=== PATIENT | female | born 1940 | race Caucasian/White ===

== ENCOUNTER 2016-12-30 08:47 | Inpatient (IN) | payer MEDICARE, BC ==
[~2016-12-30] VITALS: Ht 152.4 cm; Wt 70.2 kg
[~2016-12-30 08:47] MED LIST: BACL20TA PO; BUPR100T14 PO; CALC1TAB98 PO; CELE200C PO; DESL5TAB20 PO; DOCU-159 PO; DULO60CA59 PO; FENT-65 TD; FLOV44 INHALATION; FURO40TA4 PO; GABA-528 PO; HYDR2TAB3 PO; L-THYROXINE PO; LIDOCAINE PATCH; MECL12.5 PO; METAM PO; METHYPHENIDATE PO; METO-448 PO; MONT10TA24 PO; PANT40TA4 PO; POTA99TA5 PO; RIVA20TA PO; SENN8.6C3 PO; SIMV5TAB50 PO; SPIR100T31 PO; TIOT18CA INHALATION
[2016-12-30 09:45] VITALS: BP 115/54; PULSE 79; RESP 16
--- NOTE | 2016-12-30 12:23 | CONS ---
Date/Time of Note Date/Time of Note DATE: 12/30/16 TIME: 12:19 Assessment/Plan Assessment/Plan Additional Assessment/Plan Assessment recommendations; 1. Patient admitted electively for left elbow surgery due to hardware protruding out. 2. COPD. Patient is cleared from pulmonary standpoint for general anesthesia. She apparently has had workup done on outpatient basis which is currently not available for review. A chest x-ray has not been recently done I will recommend obtaining one. Consultation Date/Type/Reason Admit Date/Time Dec 30, 2016 at 10:00 Date of Consultation: Dec 30, 2016 Type of Consultation: Pulmonary Reason for Consultation Pulmonary consultations requested for preop clearance for left elbow surgery. History presenting; patient is a very pleasant 76-year-old white lady who was admitted today for surgery involving left elbow because of hardware has been protruding out of the elbow for the last week or so. Patient does complain of chronic shortness of breath upon moderate exertion. Complains of mild chronic cough. Denies any sputum production chest pain fever chills. Patient is physically very active. Past medical history; next 1. History of COPD. 2. History of varicose vein surgery in her mid 30s and according to what the patient describing looks like patient has had a Clara filter placed. Not sure about any history of DVT or PE. 3. History of appendectomy. 4. Most of any hypertension diabetes or coronary artery disease. Medications; reviewed. Allergies; penicillin and sulfa drugs. As well as erythromycin and morphine. Social history; patient has a [id number] smoking history. She quit several years ago. Most of alcohol or drug abuse. Occupational history; patient was in real estate business. Family history; she is a . She has 3 children. Review systems; denies any headache, visual changes. Denies any sinus symptoms , postnasal drip. Any hearing loss. Any seizures. Any visual changes. Denies any chest pain, angina, wheezing. Complains of mild chronic cough. Denies any hemoptysis or sputum production. Denies any abdominal pain, nausea vomiting. Any melena, hematochezia. Any edema or orthopnea. Has not lost any weight recently. General exam; elderly lady awake alert currently in no distress. Exam/Review of Systems Exam HEENT exam; supple neck, no JVD. No lymphadenopathy. Midline trachea. No thyromegaly. Patient is edentulous and wears dentures. Pupils are midsize and reactive to light. Extraocular movements are intact. No neck masses. Chest examined; diminished but clear vessel. No added sound. S1-S2 audible, no murmurs. Regular rhythm. Abdomen examination; soft, nontender. No organomegaly. There is a well-healed left mid abdominal scar present. Umbilicus is inverted. Extremity exam; no peripheral edema. Pulses 1+ bilaterally. No clubbing. There is hardware protruding out of the left elbow. HOSPITALIST PHYSICIAN examination; no focal deficit. Medications Medications Current Medications Baclofen (Lioresal) 20 mg BID PO ; Start 12/30/16 at 21:00; Status UNV Bupropion HCl (Wellbutrin) 300 mg DAILY PO ; Start 12/31/16 at 09:00; Status UNV Celecoxib (Celebrex) 200 mg DAILY PO ; Start 12/31/16 at 09:00; Status UNV Docusate Sodium (Colace) 100 mg DAILY PO ; Start 12/31/16 at 09:00; Status UNV Duloxetine HCl (Cymbalta) 60 mg DAILY PO ; Start 12/31/16 at 09:00; Status UNV Furosemide (Lasix) 40 mg DAILY PO ; Start 12/31/16 at 09:00; Status UNV Gabapentin (Neurontin) 800 mg TID PO ; Start 12/30/16 at 13:00; Status UNV Hydromorphone HCl (Dilaudid) 2 mg Q4H PRN PO PAIN; Start 12/30/16 at 11:30; Status UNV Meclizine HCl (Antivert) 10 mg TID PRN PO DIZZINESS; Start 12/30/16 at 11:30; Status UNV Metoprolol Tartrate (Lopressor) 12.5 mg DAILY PO ; Start 12/31/16 at 09:00; Status UNV Montelukast Sodium (Singulair) 10 mg QHS PO ; Start 12/30/16 at 21:00; Status UNV Pantoprazole (Protonix Tab) 40 mg DAILY PO ; Start 12/31/16 at 09:00; Status UNV Psyllium Hydrophilic Mucilloid (Metamucil) 1 pkt BID PO ; Start 12/30/16 at 21:00 ; Status UNV Senna (Senokot) 1 tab DAILY PO ; Start 12/31/16 at 09:00; Status UNV Spironolactone (Aldactone) 25 mg DAILY PO ; Start 12/31/16 at 09:00; Status UNV Tiotropium [place] (Spiriva) 1 inh DAILY INH ; Start 12/31/16 at 09:00; Status UNV Miscellaneous Information 5 mg DAILY PO ; Start 12/31/16 at 09:00; Status UNV Miscellaneous Information 1 puff BID INHALATION ; Start 12/30/16 at 21:00; Status UNV Miscellaneous Information 10 mg QHS PO ; Start 12/30/16 at 21:00; Status UNV Methylphenidate HCl (Methylin) 20 mg QID PO ; Start 12/30/16 at 13:00; Status UNV Fentanyl (Duragesic 100 Mcg/Hr Patch) 1 patch Q72H TRANSDERM ; Start 12/30/16 at 11:30; Status UNV Levothyroxine Sodium (Synthroid) 100 mcg DAILY@06 PO ; Start 12/31/16 at 06:00; Status UNV Pantoprazole (Protonix Tab) 40 mg DAILY@06 PO ; Start 12/31/16 at 06:00; Status UNV Enoxaparin Sodium (Lovenox) 40 mg DAILY SC ; Start 12/31/16 at 09:00; Status UNV ROMAN COLLINS Dec 30, 2016 12:23
[2016-12-30 12:55] LABS: ADD SCAN DIFF NO
[2016-12-30 12:57] LABS: BASOPHIL # 0.1 10^3/ul (0.0-0.1); BASOPHILS % 0.6 % (0.0-2.0); EOSINOPHILS # 0.4 10^3/ul (0.0-0.5); EOSINOPHILS % 4.4 % (0.0-7.0); HEMATOCRIT 31.3 % (37.0-47.0); HEMOGLOBIN 9.6 g/dl (12.0-16.0); LYMPHOCYTES # 0.7 10^3/ul (0.8-2.9); LYMPHOCYTES % 7.9 % (15.0-51.0); MEAN CORPUSCULAR HEMOGLOBIN 27.8 pg (29.0-33.0); MEAN CORPUSCULAR HGB CONC 30.7 g/dl (32.0-37.0); MEAN CORPUSCULAR VOLUME 90.7 fl (82.0-101.0); MONOCYTE # 1.2 10^3/ul (0.3-0.9); MONOCYTES % 14.9 % (0.0-11.0); NEUTROPHIL # 5.9 10^3/ul (1.6-7.5); NEUTROPHILS % 71.7 % (39.0-77.0); PLATELET COUNT 278 10^3/UL (140-415); RED BLOOD COUNT 3.45 10^6/ul (4.20-5.40); RED CELL DISTRIBUTION WIDTH 17.2 % (11.5-14.5); WHITE BLOOD COUNT 8.2 10^3/ul (4.8-10.8)
[2016-12-30] MEDS ORDERED: HYDROmorphONE 2 MG TAB PO PRN (13:00)
[2016-12-30] MEDS ORDERED: MECLIZINE 12.5 MG TAB PO PRN (13:00)
[2016-12-30 13:20] LABS: ALBUMIN 3.6 g/dl (3.3-4.9); ALBUMIN/GLOBULIN RATIO 1.38; BILIRUBIN,INDIRECT 0.1 mg/dl (0-1.1); BILIRUBIN,TOTAL 0.1 mg/dl (0.2-1.3); CALCIUM 8.5 mg/dl (8.4-10.2); CREATININE 1.08 mg/dl (0.44-1.00); POTASSIUM 4.2 mmol/L (3.5-5.1); TOTAL PROTEIN 6.2 g/dl (6.1-8.1)
--- NOTE | 2016-12-30 13:23 | HP ---
DATE OF ADMISSION: 12/30/2016 CHIEF COMPLAINT: Left elbow hardware exposure, cellulitis. HISTORY OF PRESENT ILLNESS: This is a 76-year-old female well known to me with a past medical histo ry of chronic diastolic heart failure, history of hypertension, history of coronary artery disease, history of dyslipidemia, history of COPD, on oxygen. History of hypothyroidism, history of deep tereza ous thrombosis and pulmonary embolism status post IVC filter, history of recurrent lower extremity c ellulitis, history of cognitive decline, history of chronic pain syndrome who presents to [facility] for evaluation of left elbow hardware exposure. The patient's history begins abo ut 2 to 3 months ago when she suffered a mechanical fall, suffering a left humeral fracture. The pa chang underwent left humeral arthroplasty at an outside hospital. Following the surgery, the patien t had a prolonged rehabilitation stay and was eventually transferred to assisted living. While at er assisted living. The patient started developing pain of her left elbow, eventually with exposure of left elbow hardware. She was initially taken to an outside hospital and was given IV antibiotic s for her left elbow cellulitis as well as lower extremity cellulitis and transferred to a skilled n ursing facility for continued care. While in a skilled nurse facility, the patient was unable to se e her original orthopedist, as he has moved location. The patient was then evaluated by Dr. Parisa mendenhall, who recommended the patient to be admitted to the hospital to undergo surgical correction of her exposed left elbow hardware. The patient was subsequently admitted to [facility] for as stated evaluation. Upon my evaluation of the patient at this time, she is currently clinically stable, is complaining a bout general weakness, chronic pain which is her baseline. Denies any fevers, chills, nausea, vomit ing. Denies any shortness of breath. Please note, the patient has been on IV antibiotics of vancom ycin and gentamicin for her lower extremity cellulitis and left elbow cellulitis. PAST MEDICAL HISTORY: As stated above, history of diastolic heart failure, history of COPD, history of dyslipidemia, history of coronary artery disease, history of hypothyroidism, history of chronic pain syndrome, history of DVT, PE, history of recurrent cellulitis. PAST SURGICAL HISTORY: Multiple status post left arm arthroplasties, status post multiple back surg eries, status post bladder surgery. FAMILY HISTORY: Noncontributory. SOCIAL HISTORY: No active smoking, drinking, or drug use. MEDICATIONS: The patient's medications have been reviewed and reconciled. REVIEW OF SYSTEMS: A 14-point review of systems was conducted. Pertinent positives as stated in HP I, otherwise negative. PHYSICAL EXAMINATION: VITAL SIGNS: Blood pressure is currently 125/76, respirations 16, pulse 72, temperature 98.6. HEENT: Head is normocephalic. Pupils are reactive to light. NECK: Supple. HEART: Regular rate, positive murmur. LUNGS: Show diminished breath sounds at the base, otherwise clear. ABDOMEN: Soft, nontender to palpation. No rebound or guarding. EXTREMITIES: Negative for clubbing, cyanosis. Trace edema. DERMATOLOGIC: No rashes. MUSCULOSKELETAL: No joint effusions. NEUROLOGIC: Limited exam, but no focal deficits. LABORATORY DATA: Currently pending. ASSESSMENT AND PLAN: This is a 76-year-old female who presents with: 1. Left humeral elbow hardware exposure. The patient will be evaluated by orthopedist, rea Hopper surgical correction. Will continue pain control, monitor closely. 2. Cellulitis of bilateral lower extremities and left elbow. The patient remains on IV antibiotics of vancomycin, gentamicin. We will place an ID consult for evaluation. Dr. Peters to monitor. 3. History of coronary artery disease. Continue medical management. 4. History of diastolic heart failure. The patient appears euvolemic. Continue medical management . Continue diuretic therapy. Follow up with cardiology. 5. History of polyneuropathy. Continue Neurontin. 6. Chronic pain syndrome. Continue current pain regimen. Continue fentanyl patch. Continue Dilau did. 7. Depression. Continue Wellbutrin. 8. Cognitive decline. Continue to monitor. 9. Chronic obstructive pulmonary disease. Continue medical management. Continue Spiriva. Continu e supplemental oxygen. 10. History of allergies, allergic rhinitis. Continue Fluticasone. Continue Claritin. 11. Dyslipidemia. Continue statin therapy. 12. History of deep venous thrombosis and pulmonary embolism. The patient is currently on Xarelto. We will hold in the setting of pending surgery, place the patient on Lovenox. Will check INR. 13. History of hypothyroidism. We will check a TSH, free T4 level. Will continue Synthroid. 14. Gastrointestinal and deep venous thrombosis prophylaxis. The patient will continue PPI and Kalee enox. Please note I spent up to 45 minutes [id number] time with the patient discussing code status. The patient is FULL CODE. Dictated By: VALE DUKE/SOFIE Conf#: [id number] DID#: [id number]
[2016-12-30] MEDS ORDERED: ALBUTEROL/IPRATROPIUM (NEB) 3 ML AMP HHN PRN (14:00)
[2016-12-30 14:47] LABS: INR 1.05; PROTIME 13.7 Sec (12.2-14.2); PT RATIO 1.1
[2016-12-30 15:03] LABS: ADD UMIC NO; URINE BILIRUBIN (Dip) NEGATIVE (NEGATIVE); URINE BLOOD (Dip) NEGATIVE (NEGATIVE); URINE COLOR LT. YELLOW (YELLOW); URINE GLUCOSE (Dip) NEGATIVE (NEGATIVE); URINE KETONES (Dip) NEGATIVE (NEGATIVE); URINE LEUKOCYTE ESTERASE (Dip) NEGATIVE (NEGATIVE); URINE NITRITE (Dip) NEGATIVE (NEGATIVE); URINE TOTAL PROTEIN (Dip) NEGATIVE (NEGATIVE); URINE UROBILINOGEN (Dip) 0.2 E.U./dL (0.1-1.0)
[2016-12-30] MEDS: MOMETASONE 0.24 GM INHALER INH SCH (16:26)
[2016-12-30] MEDS: BUPROPION (XL) 150 MG TAB PO SCH (16:28)
[2016-12-30] MEDS: GABAPENTIN 400 MG CAP PO SCH ×2 (16:29→21:50)
--- NOTE | 2016-12-30 16:36 | CONS ---
DATE OF ADMISSION: 12/30/2016 DATE OF CONSULTATION: 12/30/2016 INFECTIOUS DISEASE CONSULTATION REASON FOR CONSULTATION: Antibiotic management. HISTORY OF PRESENT ILLNESS: Jorge Alberto Downs is a 76-year-old female who comes in with left elb ow hardware exposure and cellulitis. Her past problems include: 1. Chronic diastolic heart failure. 2. Hypertension. 3. Coronary artery disease. 4. Dyslipidemia. 5. COPD, on oxygen. 6. Hypothyroidism. 7. History of deep vein thrombophlebitis and pulmonary emboli, status post inferior vena cava filte r. 8. History of recurrent lower extremity cellulitis. 9. History of cognitive decline. 10. Chronic pain syndrome. Acutely she presents to [facility] for evaluation of left elbow hardware exposure. About 2 to 3 months ago she suffered a mechanical fall and left humeral fracture. She underwent lef t humeral arthroplasty at an outside hospital. Following the surgery, she had a prolonged rehabilit ation and was transferred to assisted living. There she developed pain in her left elbow with expos ure left elbow hardware. She was taken initially to an outside hospital, given IV antibiotics for l eft elbow cellulitis as well as lower extremity cellulitis. She was then transferred [facility]. The patient could not return to see her original orthopedist as he had move d location. She was then evaluated by Dr. Parisa Bagley and [facility] her exposed left elbow hardware. She was admitted to [facility] for this evaluation, the patient complains of generalized weakness and pain. She mesha es nausea, vomiting, fever, chills, or shortness of breath. She was started on vancomycin and genta micin for lower extremity cellulitis and left elbow cellulitis. PAST MEDICAL HISTORY: As outlined. PAST SURGICAL HISTORY: Status post left arm arthroplasties, status post multiple back surgeries, st atus post bladder surgery. FAMILY HISTORY: Noncontributory. SOCIAL HISTORY: She does not smoke, drink or abuse drugs. ALLERGIES: NONE TO PENICILLIN, SULFA, OR FOODS. MEDICATIONS: Per chart. REVIEW OF SYSTEMS: As per HPI. PHYSICAL EXAMINATION: GENERAL: The patient is a well-developed, well-nourished female who is alert, responsive, in no acu te distress. VITAL SIGNS: Stable. She is afebrile. SKIN: Without generalized rash. HEENT: Within normal limits. NECK: Supple. LYMPH NODES: None palpable. CHEST: Decreased breath sounds at the bases. HEART: Without murmur or gallop. ABDOMEN: Soft, nontender, without organosplenomegaly or masses. EXTREMITIES: Without cyanosis or clubbing. She has cellulitis involving her elbow with exposed gemma dware, and she has cellulitis of lower extremities. LABORATORY DATA: On admission, her white count was 8.2, H and H of 9.6 and 31.3, platelet count 278 ,000. BUN and creatinine are 18 and 1.08. Urine is negative for leukocyte esterase and for nitrite s. The patient was also seen in consultation by pulmonary and was cleared for a pulmonary standpoint fo r general anesthesia. We will continue her on current therapy. I will check with Dr. Parisa Bagley as to whether his plan is to remove the hardware if at all possible and to leave the wound open which w ould seem to be the probable course of events. I will dictate my findings to Dr. Pearce, Dr. Haskins , and Dr. Parisa Bagley. Dictated By: ADIEL MAJOR MD, JD/SOFIE Conf#: [id number] DID#: [id number]
--- NOTE | 2016-12-30 16:40 | CONS ---
DATE OF ADMISSION: 12/30/2016 DATE OF CONSULTATION: 12/30/2016 TYPE OF CONSULTATION: Cardiology. REFERRING PHYSICIAN: Dr. Pearce. REASON FOR CONSULTATION: Cardiovascular preop evaluation. SURGICAL PROBLEM: Left elbow hardware exposure. HISTORY OF PRESENT ILLNESS: Thank you for this referral. History obtained from the patient who is a fair historian at best, extensive review of the chart, review of the old chart. This is a 76-year -old pleasant female with history of multiple complicated medical history including chronic diastoli c heart failure, depression, COPD, history of PE, DVT. She was receiving Lopressor and apparently long s had IVC filter "getting loose" and going to her "heart". Has has had what appeared to be thoracot jayesh done. She was admitted because of exposure of the metal in her elbow. The patient had an elbow surgery about a year ago in February of last year had noted that the hardware is now exposed through the skin and has been admitted for further workup and needs urgent surgery. We are kindly asked to optimize prior to surgery. The patient denies any chest pain or pressure to me at this point. Jovanni es any PND, orthopnea to me. She says she is normally is able to walk about 2 to 4 blocks with her dogs without stopping. PAST MEDICAL HISTORY: History of diabetes, COPD, dyslipidemia, questionable history of coronary art ara disease. She denies it to me and said that the sternotomy scar that she had actually from the s urgery that she had to take the IVC filter out. History of hypothyroidism, chronic pain syndrome, h istory of deep venous and PE, cellulitis. SURGICAL HISTORY: Status post left arthroplasty, status post multiple back surgeries, knee surgery, bladder surgery, IVC filter placement, IVC filter removal apparently from the chest or lung. Acco rding to the patient none of the surgery had any cardiac complication or anesthesia complication. FAMILY HISTORY: No reported coronary artery disease. SOCIAL HISTORY: The patient is still smoking. Does not use any alcohol or drugs. FAMILY HISTORY: No reported early coronary artery disease. ALLERGIES: 1. PENICILLIN. 2. SULFA. 3. ERYTHROMYCIN. 4. MORPHINE. MEDICATIONS: As per medical records, personally reviewed. REVIEW OF SYSTEMS: As above mentioned. PHYSICAL EXAMINATION: VITAL SIGNS: Temperature 97.7, heart rate of 79, blood pressure 115/54, respiration rate of 16, sat urating 98%. HEENT: Normocephalic, atraumatic. No acute distress. Pupils are equal. CARDIOVASCULAR: Regular rate and rhythm, systolic ejection murmur. PULMONARY: With no wheezes, minimal rhonchi. GASTROINTESTINAL: Soft, nontender. EXTREMITIES: With no significant lower extremity edema. Left elbow metal appears to be exposed carlos miguel. LABORATORY: WBC of 8.2, hemoglobin 9.6, platelets 278. Sodium 143, potassium 4.2, BUN of 18, creat inine 1.08, glucose of 59. ASSESSMENT AND PLAN: 1. Cardiovascular preop evaluation. 2. Left humeral elbow hardware exposure. 3. Chronic obstructive pulmonary disease. 4. History of diastolic heart failure. 5. History of chronic back pain and multiple surgeries. 6. Hypertension. 7. Dyslipidemia. 8. History of deep venous thrombosis and pulmonary embolism, previously on Xarelto. 9. History of thyroid disorder, on Synthroid. RECOMMENDATIONS: I will order a baseline EKG, chest x-ray and echocardiogram to evaluate further. Patient clinically appears to be optimized at this point and does not complain of any chest pain or angina. No further cardiac workup would be indicated. However, she still would need a baseline EKG , chest x-ray and echocardiogram done to be able to further discuss prior to the surgery. The patie nt also has been evaluated by pulmonary. Please refer to their recommendation as well. We will con tinue to follow along with you. Dictated By: FARHAN SHULTZ/SOFIE Conf#: [id number] DID#: [id number] CC: VALE PEARCE DO;*EndCC*
[2016-12-30 19:39] VITALS: BP 107/58; RESP 18
[2016-12-30] MEDS ORDERED: PSYLLIUM 28% PACKET PO SCH (21:00)
[2016-12-30] MEDS: MONTELUKAST 10 MG TAB PO SCH (21:50)
[2016-12-30] MEDS: PSYLLIUM (SUGAR FREE) PACKET PO SCH (21:50)
[2016-12-30] MEDS: ATORVASTATIN 10 MG TAB PO SCH (21:50)
[2016-12-30] MEDS: BACLOFEN 10 MG TAB PO SCH (21:50)
[2016-12-30] MEDS: METHYLPHENIDATE 20 MG TAB PO SCH (21:52)
[2016-12-31] VITALS (19 sets, daily range): BP systolic 91–140; BP diastolic 47–80; PULSE 69–90; RESP 16–38
[2016-12-31 05:35] LABS: ADD SCAN DIFF NO
[2016-12-31 05:45] LABS: BASOPHILS % 0.8 % (0.0-2.0); EOSINOPHILS # 0.3 10^3/ul (0.0-0.5); EOSINOPHILS % 5.7 % (0.0-7.0); HEMATOCRIT 29.7 % (37.0-47.0); LYMPHOCYTES # 0.6 10^3/ul (0.8-2.9); LYMPHOCYTES % 11.7 % (15.0-51.0); MEAN CORPUSCULAR HEMOGLOBIN 27.8 pg (29.0-33.0); MEAN CORPUSCULAR HGB CONC 30.3 g/dl (32.0-37.0); MEAN CORPUSCULAR VOLUME 91.7 fl (82.0-101.0); MEAN PLATELET VOLUME 9.4 fl (7.4-10.4); MONOCYTE # 0.8 10^3/ul (0.3-0.9); MONOCYTES % 15.4 % (0.0-11.0); NEUTROPHIL # 3.4 10^3/ul (1.6-7.5); NEUTROPHILS % 66.2 % (39.0-77.0); PLATELET COUNT 258 10^3/UL (140-415); RED BLOOD COUNT 3.24 10^6/ul (4.20-5.40); RED CELL DISTRIBUTION WIDTH 17.4 % (11.5-14.5); WHITE BLOOD COUNT 5.1 10^3/ul (4.8-10.8)
--- NOTE | 2016-12-31 05:54 | RADRPT ---
PROCEDURE: XR Chest. CLINICAL INDICATION: Preop TECHNIQUE: An AP view of the chest was obtained. COMPARISON: No prior exam is available for comparison. FINDINGS: There is a right upper extremity PICC line with tip near the cavoatrial junction. There is prominence of the interstitial markings. No pleural effusion or pneumothorax is seen. Th e cardiomediastinal silhouette is within normal limits for size. There are post cardiac surgery ch anges with sternotomy wires. The osseous structures demonstrate postsurgical changes from thoracolum bar fusion, partially imaged. IMPRESSION: 1. Mild prominence of the interstitial markings, may reflect mild underlying interstitial edema or chronic lung changes. 2. Low lung volumes. 3. Right upper extremity PICC line with tip near the cavoatrial junction. 4. Postsurgical changes from thoracolumbar fusion, partially imaged. RPTAT: HH .Annabella Redman MD, MD Date Time Electronically viewed and signed by .Annabella Redman MD, MD on 12/31/2016 05:54 .G/
[2016-12-31 06:03] LABS: CALCIUM 8.4 mg/dl (8.4-10.2); CREATININE 1.01 mg/dl (0.44-1.00); MAGNESIUM 2.3 mg/dl (1.7-2.5); PHOSPHORUS 4.5 mg/dl (2.5-4.9); POTASSIUM 3.8 mmol/L (3.5-5.1)
[2016-12-31] MEDS: LEVOTHYROXINE 100 MCG TAB PO SCH (06:27)
[2016-12-31] MEDS: PANTOPRAZOLE (EC) 40 MG TAB PO SCH (06:27)
[2016-12-31] MEDS: LORATADINE 10 MG TAB PO SCH (09:00)
[2016-12-31] MEDS: MOMETASONE 0.24 GM INHALER INH SCH (09:00)
[2016-12-31] MEDS: DOCUSATE SODIUM 100 MG CAP PO SCH (09:00)
[2016-12-31] MEDS ORDERED: PANTOPRAZOLE (EC) 40 MG TAB PO SCH (09:00)
[2016-12-31] MEDS: FUROSEMIDE 40 MG TAB PO SCH (09:00)
[2016-12-31] MEDS: GABAPENTIN 400 MG CAP PO SCH ×3 (09:00→20:18)
[2016-12-31] MEDS: BACLOFEN 10 MG TAB PO SCH ×2 (09:00→20:17)
[2016-12-31] MEDS: ENOXAPARIN 40 MG/0.4 ML SYG SC SCH (09:00)
[2016-12-31] MEDS: TIOTROPIUM 18 MCG CAPSULE INHA DEV INH SCH (09:00)
[2016-12-31] MEDS: SPIRONOLACTONE 25 MG TAB PO SCH (09:00)
[2016-12-31] MEDS: METOPROLOL 25 MG TAB PO SCH (09:00)
[2016-12-31] MEDS: BUPROPION (XL) 150 MG TAB PO SCH (09:00)
[2016-12-31] MEDS: METHYLPHENIDATE 20 MG TAB PO SCH ×2 (09:00→20:26)
[2016-12-31] MEDS: SENNA TAB PO SCH (09:00)
[2016-12-31] MEDS: DULOXETINE 30 MG CAP DR PO SCH (09:00)
[2016-12-31] MEDS: CELECOXIB 200 MG CAP PO SCH (09:00)
[2016-12-31] MEDS: PSYLLIUM (SUGAR FREE) PACKET PO SCH ×2 (09:00→20:18)
--- NOTE | 2016-12-31 09:24 | PN ---
DATE: 12/31/2016 SUBJECTIVE: The patient is stable, no acute events overnight. No fevers, chills, nausea or vomitin g. No shortness of breath. OBJECTIVE: VITAL SIGNS: Blood pressure 107/58, respiration 18, pulse 80, temperature 98.2. HEENT: Head is normocephalic. NECK: Supple. HEART: Regular rate. LUNGS: Show diminished breath sounds at the base. ABDOMEN: Soft. Nontender to palpation. No rebound or guarding. EXTREMITIES: Negative for clubbing, cyanosis, no edema. DERMATOLOGIC: No rashes. MUSCULOSKELETAL: No joint effusions. NEUROLOGIC: No change in exam. MEDICATIONS: The patient's medications have been reviewed. LABORATORY DATA: Shows sodium 142, potassium 2.9, chloride 104, BUN 17, creatinine 1.01. White cou nt 5.1, hemoglobin 9.0, hematocrit 29.7, platelet count 258. IMAGING: Patient's chest x-ray shows interstitial markings may reflect chronic lung disease or inte rstitial edema. A 2D echo is currently pending. ASSESSMENT AND PLAN: 1. Left humeral elbow hardware exposure. The patient has been evaluated by orthopedist, sue Hopper ending surgical correction later today. 2. Cellulitis bilateral lower extremity and left elbow. The patient remains on antibiotics, vancom ycin and gentamicin. ID consult was placed. Will follow up with their recommendations. 3. History of coronary artery disease. Continue medical management. 4. History of diastolic heart failure. The patient appears euvolemic. Continue current treatment plan. Continue diuretic therapy. 5. History of polyneuropathy. Continue Neurontin. 6. Chronic pain syndrome. Continue current pain regimen with fentanyl patch and Dilaudid. 7. Depression. Continue Wellbutrin. 8. Cognitive decline. Continue to monitor. 9. History of chronic obstructive pulmonary disease. Continue current medical management. Continu e supplemental oxygen, Spiriva nebulizers. 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 10. History of allergies, allergic rhinitis. Continue fluticasone, continue Claritin. 11. Edema. Continue statin therapy. 12. History of deep venous thrombosis, pulmonary embolism. The patient is status post IVC filter. The patient's Xarelto has been held. Will continue Lovenox. 13. Hypothyroidism. Continue Synthroid. 14. Gastrointestinal and deep venous thrombosis prophylaxis. Continue PPI and Lovenox. 15. Mild anemia. Continue to monitor hemoglobin and hematocrit levels. Dictated By: VALE DUKE/SOFIE Conf#: [id number] DID#: [id number]
--- NOTE | 2016-12-31 10:25 | RADRPT ---
Echocardiogram Report Patient Name: MERON LUND Gender: Female Date: 1940 Study Date: 31-Dec-2016 Guest Services Officer: Sabas Garcia RDCS Location: [id number] Ref. Physician: FARHAN COLE Quality: Good Procedures: Transthoracic echocardiogram with complete 2D, M-Mode, and doppler examination. Indications: Congestive Heart Failure. 2D/M Mode Doppler Measurement Value Normal Ranges Measurement Value Normal Ranges LVIDd 2D 4.3 3.5 - 5.6 cm AV Mean Juan David 1.6 m/sec LVIDs 2D 2.4 2.1 - 4.1 cm AV Mean PG 12.0 mmHg FS 2D 9.5 % AV Peak Juan David 2.5 m/sec LVPWd 2D 0.9 0.6 - 1.1 cm AV Peak PG 26.0 mmHg IVSd 2D 0.9 0.6 - 1.1 cm AV VTI 54.7 cm IVS/LVPW 2D 0.4 AI Peak PG 49.0 mmHg AoR Diam 2D 3.0 2.0 - 3.7 cm AI Peak Juan David 3.5 m/sec LA/Ao 2D 1 0 - 1 AI PHT 495.0 msec EDV 2D 18.0 cm3 LVOT Mean Juan David 0.6 m/sec ESV 2D 13.3 cm3 LVOT Mean PG 2.0 mmHg LA Dimen 2D 3.0 2.3 - 4.0 cm LVOT Peak Juan David 1.0 m/sec LVOT Peak PG 4.0 mmHg LVOT VTI 20.2 cm MV E Peak Juan David 0.5 m/sec MV A Peak Juan David 0.7 m/sec MV E/A 0.8 MV Decel Time 183 msec MV E/A 0.8 TR Peak Juan David 2.4 m/sec TR Peak PG 24.0 mmHg RVSP 27.0 mmHg Findings Left Ventricle: Normal left ventricular systolic function. Normal left ventricular cavity size. Normal left ventricular wall thickness. Ejection fraction is visually estimated at 65 %. Tissue Doppler/Mitral Doppler indices are consistent with impaired relaxation (Stage I diastolic dysfunction). Right Ventricle: Normal right ventricular size. Normal right ventricular systolic function. Left Atrium: The left atrium is normal in size. Right Atrium: The right atrium is normal in size. Mitral Valve: Mitral valve leaflets appear mildly thickened. Mild mitral annular calcification. Trace mitral regurgitation. Aortic Valve: Aortic valve Max velocity 2.53 m/sec. Max PG 26.00 mmHg. Mean PG 12.00 mmHg. Aortic sclerosis without stenosis. Mild aortic valve regurgitation. Tricuspid Valve: Normal appearance of the tricuspid valve. Estimated peak PA systolic pressure 27 mmHg. There is trace tricuspid regurgitation. Pulmonic Valve: Normal pulmonic valve appearance. Pericardium: Normal pericardium with no significant pericardial effusion. Aorta: Normal aortic root. IVC: Normal size and normal respiratory collapse consistent with normal right atrial pressure. Conclusions 1.Normal left ventricular systolic function. Normal left ventricular cavity size. Normal left ventricular wall thickness. Ejection fraction is visually estimated at 65 %. Tissue Doppler/Mitral Doppler indices are consistent with impaired relaxation (Stage I diastolic dysfunction). 2.The left atrium is normal in size. 3.Mitral valve leaflets appear mildly thickened. Mild mitral annular calcification. Trace mitral regurgitation. 4.Aortic valve Max velocity 2.53 m/sec. Max PG 26.00 mmHg. Mean PG 12.00 mmHg. Aortic sclerosis without stenosis. Mild aortic valve regurgitation. 5.Normal appearance of the tricuspid valve. Estimated peak PA systolic pressure 27 mmHg. There is trace tricuspid regurgitation. Electronically Signed By: Farhan Cole 31-Dec-2016 10:24:37 -0700 Patient Name: MERON LUND Study Date: 31-Dec-2016 [id number]
[2016-12-31] MEDS: DEXTROSE 5%-0.45% NACL 1,000 ML IV SCH ×2 (12:06→21:25)
--- NOTE | 2016-12-31 12:42 | PN ---
DATE: 12/31/2016 CARDIOLOGY FOLLOWUP SUBJECTIVE: Rhythm strip was discussed with the staff. The patient with no chest pain or pressure. No palpitation, no shortness of breath. No PND or orthopnea. MEDICATIONS: Reviewed. PHYSICAL EXAMINATION: VITAL SIGNS: Temperature 98.4, heart rate of 83, blood pressure ____, respiratory rate 18, saturati ng 94%. GENERAL: No acute distress. HEENT: Normocephalic, atraumatic. Pupils are equal. CARDIOVASCULAR: Regular rate and rhythm, systolic murmur. PULMONARY: With no wheezes or rhonchi. GASTROINTESTINAL: Soft, nontender. EXTREMITIES: Her left upper extremity with exposed ____ elbow. NEUROLOGIC: Awake and alert. PSYCHIATRIC: Appears to be calm and pleasant. CHEST: Status post previous sternotomy. LABORATORY: WBC of 5.1, hemoglobin of 9, platelets 258. Sodium 142, potassium 3.8, BUN of 17, crea tinine 1.01, glucose of 76. Chest x-ray done yesterday shows more prominence of interstitial markin gs may reflect underlying edema, chronic lung changes. ____ right upper extremity PICC line in delio ce. Echocardiogram was personally reviewed which showed ejection fraction of about 65%. Aortic sly ve sclerosis with probably mild stenosis. Mild aortic insufficiency noted as well. PA pressure was 27 mmHg. EKG was personally reviewed, showed normal sinus rhythm, normal ECG. ASSESSMENT AND PLAN: 1. Cardiovascular preop evaluation. 2. Left humeral elbow hardware exposure pending an infection. 3. Chronic obstructive pulmonary disease. 4. History of diastolic heart failure, currently stable. 5. Chronic pain and back pain. 6. Hypertension. 7. Dyslipidemia. 8. History of deep venous thrombosis and PE, previously on Xarelto. 9. History of thyroid disorder, on Synthroid. RECOMMENDATIONS: I will continue with the current cardiac care. The patient is currently optimized from the cardiac standpoint, no further cardiac workup would be indicated. The patient has multipl e risk factors which will place him at moderate risk of cardiovascular event; however, given urgency of the surgery, there is no benefit underlying the surgery for any kind of cardiac workup. The pat ient is awaiting surgery today. Dictated By: FARHAN SHULTZ/SOFIE Conf#: [id number] DID#: [id number] CC: VALE GONZALEZ DO;*EndCC*
--- NOTE | 2016-12-31 13:54 | PN ---
DATE: 12/31/2016 INFECTIOUS DISEASE PROGRESS NOTE SUBJECTIVE: The patient is alert, feels good, looks comfortable, no fevers. LABORATORY DATA: WBC today 5.1, no shift, no bands. BUN 17, creatinine 1.01. DIAGNOSTICS: Chest x-ray on admission revealed chronic lung changes. INDWELLINGS: Right upper extremity PICC line. ALLERGIES: 1. PENICILLIN. 2. SULFA. 3. ERYTHROMYCIN. PHYSICAL EXAMINATION: GENERAL: Well-developed, elderly woman who is alert, in no distress. HEENT: Head atraumatic, normocephalic. Sclerae anicteric. Buccal mucosa pink. NECK: Supple. CHEST: Rise symmetrical. Breath sounds clear. HEART: S1, S2. ABDOMEN: Soft, bowel sounds present. EXTREMITIES: Without cyanosis. Bilateral lower extremities chronic venous stasis, left elbow with visibly exposed hardware. ASSESSMENT: 1. Left elbow exposed hardware. 2. Bilateral lower extremities acute on chronic cellulitis with chronic venous stasis. 3. History of congestive heart failure and coronary artery disease. 4. History of chronic obstructive pulmonary disease. 5. History of deep venous thrombosis and pulmonary embolism, status post inferior vena cava filter placement. PLAN: The patient is supposed to be continued antibiotics. We will restart her on vancomycin and e ither gentamicin or Levaquin unless there are contraindications. She is being seen by ortho team an d planned for surgery tonight for possible hardware removal. Dictated By: ROWENA BELCHER AUDIT CLERK for ADIEL WALTER/NTS Conf#: [id number] DID#: [id number]
[2016-12-31] MEDS ORDERED: VANCOMYCIN IV PER PHARMACY XX SCH (14:00)
[2016-12-31] MEDS ORDERED: LEVOFLOXACIN 500MG/D5W (PMX) 100 ML IVPB SCH (14:30)
[2016-12-31] MEDS ORDERED: VANCOMYCIN 1.5 GM in SOD CHLORIDE 0.9% 250 ML IVPB SCH (15:30)
[2016-12-31] MEDS ORDERED: FENTAnyl 50 MCG/ML VIAL ONE ×2 (16:11→17:34)
[2016-12-31] MEDS ORDERED: MIDAZOLAM 1 MG/ML 2 ML INJ ONE (16:11)
--- NOTE | 2016-12-31 16:13 | HPN ---
Date/Time of Note Date/Time of Note DATE: 12/31/16 TIME: 16:11 Interval H&P Admission Note Pt. seen H&P reviewed: No system changes AYLIN TOUSSAINT MD Dec 31, 2016 16:13
[2016-12-31] MEDS ORDERED: POLYMYXIN/BACITRACIN 1L IRRIG ONE (17:12)
[2016-12-31] MEDS ORDERED: ROPIVACAINE 0.5 % 30 ML VIAL ONE (17:30)
[2016-12-31] MEDS ORDERED: DIPHENHYDRAMINE 50 MG INJ IV PRN (17:30)
[2016-12-31] MEDS ORDERED: NALOXONE (0.4 MG/ML) INJ IV PRN (17:30)
[2016-12-31] MEDS ORDERED: FENTAnyl 50 MCG/ML VIAL IV PRN (17:30)
[2016-12-31] MEDS ORDERED: ONDANSETRON 4 MG INJ IV PRN (17:30)
[2016-12-31] MEDS ORDERED: ONDANSETRON 4 MG INJ ONE (17:32)
[2016-12-31] MEDS ORDERED: LIDOCAINE 2% (SDV) 5 ML INJ ONE (17:32)
[2016-12-31] MEDS ORDERED: ETOMIDATE 20 MG INJ ONE (17:32)
[2016-12-31] MEDS ORDERED: HYDROCODONE/APAP (5/325) TAB PO PRN (18:30)
[2016-12-31] MEDS ORDERED: NACL 0.9% 3 ML SYG IV SCH (18:30)
--- NOTE | 2016-12-31 18:55 | OPR ---
DATE OF OPERATION: 12/31/2016 PREOPERATIVE DIAGNOSIS: Ulceration over the tip of the left elbow with the protruding fixation hard plate. POSTOPERATIVE DIAGNOSIS: Ulceration over the tip of the left elbow with the protruding fixation gemma d plate. PROCEDURE PERFORMED: Removal of the plate and screws from the olecranon process of the left elbow, followed by plastic surgical closure. SURGEON: Sander Toussaint MD ANESTHESIA: General anesthesia. PROCEDURE AND FINDINGS: Under general anesthesia, the patient was placed in supine position upon th e operating table. Usual prep and drape was done exposing the left upper extremity and left elbow. A tourniquet was placed over the proximal portion of the left arm, but was never inflated. Considering previous scar from previous incision and the existing ulceration defect now, an incision was made, making possible narrow of the soft tissue necrosis avoidable. By blunt and sharp d issection, the plate over the olecranon process and the proximal ulna was identified and exposed. M ultiple screws, exactly 7 of them, were removed one by one and the plate was freed and was removed. After removal of the hardware, further debridement and irrigation was carried out and then by freei ng up the soft tissues and closing with 3-0 Vicryl initially, which was reinforced with 3-0 nylon fo r skin closure. The usual sterile pressure dressings were applied. The patient tolerated the entire procedure very well and was sent to the recovery room in good condi tion. Dictated By: SANDER TOUSSAINT MD IK/SOFIE Conf#: [id number] DID#: [id number]
--- NOTE | 2016-12-31 19:27 | RADRPT ---
PROCEDURE: XR Left Elbow. CLINICAL INDICATION: Postop TECHNIQUE: AP and lateral views of the left elbow performed. COMPARISON: None. FINDINGS: The patient is status post ORIF of distal humeral fracture with plate and screws. Fracture fragment s appear to be in anatomic alignment. There is an approximate 1.7 x 1.3 cm ossific density projecti ng immediately posterior to the distal humerus on the lateral view suggestive of a fracture fragment . No dislocation is seen. Minimal osteophytic spurring seen arising from the radial head. Suggest ion of screw tracts in olecranon process of the ulna. IMPRESSION: Status post ORIF of distal humeral fracture with plate and screws. Fracture fragments appear to be in anatomic alignment. There is an approximate 1.7 x 1.3 cm ossific density projecting immediately posterior to the distal humerus on the lateral view suggestive of a fracture fragment. Approximate 2 mm and smaller calcific/ossific densities are projected about the region of the knee joint space. RPTAT: HJES .Lopez Baker MD, MD Date Time Electronically viewed and signed by .Lopez Baker MD, on 12/31/2016 19:27 .S/
[2016-12-31] MEDS: ATORVASTATIN 10 MG TAB PO SCH (20:17)
[2016-12-31] MEDS: D5W-0.45 NACL + KCL 20 MEQ 1,000 ML IV SCH (20:17)
[2016-12-31] MEDS: MONTELUKAST 10 MG TAB PO SCH (20:17)
[2016-12-31] MEDS: HYDROmorphONE 1 MG/ML SYG IV PRN (23:17)
[2017-01-01 00:10] VITALS: BP 113/61; RESP 20
[2017-01-01 05:22] LABS: ADD SCAN DIFF NO
[2017-01-01] MEDS: D5W-0.45 NACL + KCL 20 MEQ 1,000 ML IV SCH (05:30)
[2017-01-01] MEDS: HYDROmorphONE 1 MG/ML SYG IV PRN ×2 (05:30→09:43)
[2017-01-01] MEDS: LEVOTHYROXINE 100 MCG TAB PO SCH (05:31)
[2017-01-01] MEDS: PANTOPRAZOLE (EC) 40 MG TAB PO SCH (05:31)
[2017-01-01 05:32] LABS: ABNORMAL IP MESSAGE 1; BASOPHILS % 0.7 % (0.0-2.0); EOSINOPHILS # 0.2 10^3/ul (0.0-0.5); HEMATOCRIT 28.7 % (37.0-47.0); HEMOGLOBIN 8.4 g/dl (12.0-16.0); LYMPHOCYTES # 0.6 10^3/ul (0.8-2.9); LYMPHOCYTES % 9.5 % (15.0-51.0); MEAN CORPUSCULAR HGB CONC 29.3 g/dl (32.0-37.0); MEAN CORPUSCULAR VOLUME 92.3 fl (82.0-101.0); MEAN PLATELET VOLUME 9.7 fl (7.4-10.4); MONOCYTE # 0.9 10^3/ul (0.3-0.9); MONOCYTES % 14.1 % (0.0-11.0); NEUTROPHIL # 4.4 10^3/ul (1.6-7.5); NEUTROPHILS % 72.4 % (39.0-77.0); PLATELET COUNT 237 10^3/UL (140-415); RED BLOOD COUNT 3.11 10^6/ul (4.20-5.40); RED CELL DISTRIBUTION WIDTH 17.2 % (11.5-14.5); WHITE BLOOD COUNT 6.1 10^3/ul (4.8-10.8)
[2017-01-01 05:57] LABS: CALCIUM 7.5 mg/dl (8.4-10.2); CREATININE 0.97 mg/dl (0.44-1.00); PHOSPHORUS 3.7 mg/dl (2.5-4.9); POTASSIUM 5.4 mmol/L (3.5-5.1)
[2017-01-01 06:21] VITALS: BP 114/58; PULSE 74; RESP 18
[2017-01-01 07:51] VITALS: BP 107/55; RESP 19
--- NOTE | 2017-01-01 09:17 | PN ---
DATE: 01/01/2017 SUBJECTIVE: The patient underwent surgery. No cardiac complication or anesthesia complication. No chest pain or pressure. No palpitation. MEDICATIONS: Reviewed. PHYSICAL EXAMINATION: VITAL SIGNS: Temperature 98, heart rate of 81, blood pressure 107/55, respiration rate of 19, satur ating 97%. HEENT: Normocephalic, atraumatic. No acute distress. Pupils equal and round. CARDIOVASCULAR: Regular rate and rhythm. Systolic ejection murmur. PULMONARY: With no wheezes or rhonchi. GASTROINTESTINAL: Soft, nontender. EXTREMITIES: Lower extremity in dressing wrap. NEUROLOGIC: Awake and alert x3, nonfocal. PSYCHIATRIC: Calm and very pleasant. LABORATORY: WBC of 6.1, hemoglobin 8.4, platelet of 237. Sodium 138, potassium 5.4, BUN of 12, cre atinine 0.97, glucose of 383. ASSESSMENT AND PLAN: 1. Left humeral elbow hardware exposure, impending infection, status post removal now. 2. Chronic obstructive pulmonary disease. 3. History of possible congestive heart failure, diastolic dysfunction, currently appears to be sta ble. 4. Chronic pain syndrome. 5. Hypertension. 6. Anemia. 7. History of pulmonary embolism and deep venous thrombosis. RECOMMENDATIONS: DVT prophylaxis as per internal medicine. Anticoagulation to be resumed as soon a s okay with orthopedic surgery. We will continue with the postop care. Beta kathryn as tolerated a t a low dose. Electrolytes will be checked. I will discontinue the Aldactone given hyperkalemia th at was noted today. We will check the labs again tomorrow. Dictated By: FARHAN SHULTZ/SOFIE Conf#: [id number] DID#: [id number] CC: VALE GONZALEZ DO;*EndCC*
--- NOTE | 2017-01-01 09:37 | PN ---
DATE: 01/01/2017 SUBJECTIVE: The patient yesterday had successful surgical removal of the plate and screw of the ole cranon process of the left elbow. The patient tolerated the procedure well. No other acute events noted. The patient is currently resting comfortably, and no pain. OBJECTIVE: VITAL SIGNS: Blood pressure 107/55, respirations 19, pulse 71, temperature 98.0. HEENT: Head is normocephalic. Pupils are reactive to light. NECK: Supple. HEART: Regular rate. LUNGS: Show diminished breath sounds at the bases. ABDOMEN: Soft, nontender to palpation. No rebound or guarding. EXTREMITIES: Negative for clubbing, cyanosis. No edema. DERMATOLOGIC: No rashes. MUSCULOSKELETAL: No joint effusions. NEUROLOGIC: No change in exam. MEDICATIONS: The patient's medications have been reviewed. LABORATORY DATA: Shows sodium 138, potassium 5.4, BUN 12, creatinine 0.97, glucose 383. White coun t 6.9, hemoglobin 8.4, hematocrit 28.7, platelet count 237. IMAGING STUDIES: Reviewed. ASSESSMENT AND PLAN: 1. Status post removal of hardware from the olecranon process of left elbow, followed by plastic chen rgical closure. The patient is currently stable. We will continue to monitor. Follow up with Dr. Bagley for weightbearing status. Continue pain control. 2. Cellulitis lower extremity and left elbow. The patient is currently on antibiotic therapy. We will continue. Follow up with infectious disease. 3. History of coronary artery disease. Continue medical management. 4. History of diastolic heart failure. The patient is currently compensated. Continue medical man agement. 5. Polyneuropathy. Continue Neurontin. 6. Hyperkalemia. Etiology is likely secondary to hyperglycemia, possible spurious result. We will continue to monitor. Repeat potassium level. 7. Chronic pain syndrome. Continue current pain regimen, fentanyl patch, Dilaudid. 8. History of depression. Continue Wellbutrin. 9. Cognitive decline. Continue to monitor. 10. History of chronic obstructive pulmonary disease. Continue medical management. Continue suppl emental oxygen, Spiriva. 11. History of allergies, allergic rhinitis. Continue fluticasone and Claritin. 12 Dyslipidemia. Continue statin therapy. 13. History of deep venous thrombosis and pulmonary embolism. The patient is status post IVC filte r. Currently on Lovenox. We will resume Xarelto. 14. Hypothyroidism. Continue Synthroid. 15. Gastrointestinal and deep venous thrombosis prophylaxis. Continue proton pump inhibitor and Lo venox. 16. Mild anemia. Continue to monitor hemoglobin and hematocrit levels. Dictated By: VALE DUKE/SOFIE Conf#: [id number] DID#: [id number]
[2017-01-01] MEDS: TIOTROPIUM 18 MCG CAPSULE INHA DEV INH SCH (09:46)
[2017-01-01] MEDS: MOMETASONE 0.24 GM INHALER INH SCH (09:46)
[2017-01-01] MEDS: SPIRONOLACTONE 25 MG TAB PO SCH (09:46)
[2017-01-01] MEDS: PSYLLIUM (SUGAR FREE) PACKET PO SCH ×2 (09:46→20:55)
[2017-01-01] MEDS: DULOXETINE 30 MG CAP DR PO SCH (09:46)
[2017-01-01] MEDS: DOCUSATE SODIUM 100 MG CAP PO SCH (09:47)
[2017-01-01] MEDS: GABAPENTIN 400 MG CAP PO SCH ×3 (09:47→20:55)
[2017-01-01] MEDS: SENNA TAB PO SCH (09:47)
[2017-01-01] MEDS: BUPROPION (XL) 150 MG TAB PO SCH (09:47)
[2017-01-01] MEDS: BACLOFEN 10 MG TAB PO SCH ×2 (09:48→20:56)
[2017-01-01] MEDS: FUROSEMIDE 40 MG TAB PO SCH (09:49)
[2017-01-01] MEDS: CELECOXIB 200 MG CAP PO SCH (09:49)
[2017-01-01] MEDS: LORATADINE 10 MG TAB PO SCH (09:49)
[2017-01-01] MEDS: METOPROLOL 25 MG TAB PO SCH (09:49)
[2017-01-01] MEDS: ENOXAPARIN 40 MG/0.4 ML SYG SC SCH (09:52)
[2017-01-01] MEDS: METHYLPHENIDATE 20 MG TAB PO SCH ×2 (09:55→21:14)
--- NOTE | 2017-01-01 12:35 | CONS ---
Date/Time of Note Date/Time of Note DATE: 01/01/17 TIME: 12:34 Assessment/Plan Assessment/Plan Chief Complaint/Hosp Course SUBJECTIVE: The patient is alert, feels good, looks comfortable, no fevers. INDWELLINGS: Right upper extremity PICC line. Abx: Vanco, Levaquin ALLERGIES: 1. PENICILLIN. 2. SULFA. 3. ERYTHROMYCIN. PHYSICAL EXAMINATION: GENERAL: Well-developed, elderly woman who is alert, in no distress. HEENT: Head atraumatic, normocephalic. Sclerae anicteric. Buccal mucosa pink. NECK: Supple. CHEST: Rise symmetrical. Breath sounds clear. HEART: S1, S2. ABDOMEN: Soft, bowel sounds present. EXTREMITIES: Without cyanosis. Bilateral lower extremities chronic venous stasis, left elbow with visibly exposed hardware. ASSESSMENT: 1. Left elbow exposed hardware==> s/p removed 12/31/16. 2. Bilateral lower extremities acute on chronic cellulitis with chronic venous stasis. 3. History of congestive heart failure and coronary artery disease. 4. History of chronic obstructive pulmonary disease. 5. History of deep venous thrombosis and pulmonary embolism, status post inferior vena cava filter placement. PLAN: Stable, continue abx, f/u ortho rec-s [facility] staff Problems: Consultation Date/Type/Reason Admit Date/Time Dec 30, 2016 at 10:00 Initial Consult Date 12/30/16 Type of Consultation: ID Exam/Review of Systems Vital Signs Vitals Vital Signs Date Time Temp Pulse Resp B/P Pulse Ox O2 Delivery O2 Flow Rate FiO2 01/01/17 09:00 Nasal Cannula 3.0 01/01/17 07:51 98.0 81 19 107/55 97 Intake and Output 12/31/16 12/31/16 01/01/17 15:00 23:00 07:00 Intake Total 200 ml 750 ml 1500 ml Output Total 830 ml 500 ml Balance 200 ml -80 ml 1000 ml Results Result Diagram: 01/01/17 0448 01/01/17 0448 Results 24 hrs Laboratory Tests Test 01/01/17 04:48 White Blood Count 6.1 Red Blood Count 3.11 L Hemoglobin 8.4 L Hematocrit 28.7 L Mean Corpuscular Volume 92.3 Mean Corpuscular Hemoglobin 27.0 L Mean Corpuscular Hemoglobin Concent 29.3 L Red Cell Distribution Width 17.2 H Platelet Count 237 Mean Platelet Volume 9.7 Neutrophils % 72.4 Lymphocytes % 9.5 L Monocytes % 14.1 H Eosinophils % 3.0 Basophils % 0.7 Nucleated Red Blood Cells % 0.0 Neutrophils # 4.4 Lymphocytes # 0.6 L Monocytes # 0.9 Eosinophils # 0.2 Basophils # 0.0 Nucleated Red Blood Cells # 0.0 Sodium Level 138 Potassium Level 5.4 H Chloride Level 107 Carbon Dioxide Level 31 Anion Gap 5 L Blood Urea Nitrogen 12 Creatinine 0.97 Glucose Level 383 #H Calcium Level 7.5 L Phosphorus Level 3.7 Magnesium Level 2.0 Medications Medications Current Medications Baclofen (Lioresal) 20 mg BID PO Last administered on 01/01/17 09:48; Admin Dose 20 MG; Start 12/30/16 at 21:00 Bupropion HCl (Wellbutrin Xl) 300 mg DAILY PO Last administered on 01/01/17 09: 47; Admin Dose 300 MG; Start 12/30/16 at 15:00 Celecoxib (Celebrex) 200 mg DAILY PO Last administered on 01/01/17 09:49; Admin Dose 200 MG; Start 12/31/16 at 09:00 Docusate Sodium (Colace) 100 mg DAILY PO Last administered on 01/01/17 09:47; Admin Dose 100 MG; Start 12/31/16 at 09:00 Duloxetine HCl (Cymbalta) 60 mg DAILY PO Last administered on 01/01/17 09:46; Admin Dose 60 MG; Start 12/31/16 at 09:00 Furosemide (Lasix) 40 mg DAILY PO Last administered on 01/01/17 09:49; Admin Dose 40 MG; Start 12/31/16 at 09:00 Gabapentin (Neurontin) 800 mg TID PO Last administered on 01/01/17 09:47; Admin Dose 800 MG; Start 12/30/16 at 13:00 Hydromorphone HCl (Dilaudid) 2 mg Q4H PRN PO PAIN; Start 12/30/16 at 13:00 Meclizine HCl (Antivert) 12.5 mg TID PRN PO DIZZINESS; Start 12/30/16 at 13:00 Metoprolol Tartrate (Lopressor) 12.5 mg DAILY PO Last administered on 01/01/17 09:49; Admin Dose 12.5 MG; Start 12/31/16 at 09:00 Montelukast Sodium (Singulair) 10 mg QHS PO Last administered on 12/31/16 20:17 ; Admin Dose 10 MG; Start 12/30/16 at 21:00 Senna (Senokot) 1 tab DAILY PO Last administered on 01/01/17 09:47; Admin Dose 1 TAB; Start 12/31/16 at 09:00 Spironolactone (Aldactone) 25 mg DAILY PO Last administered on 01/01/17 09:46; Admin Dose 25 MG; Start 12/31/16 at 09:00 Tiotropium Gustavus (Spiriva) 1 inh DAILY INH Last administered on 01/01/17 09: 46; Admin Dose 1 INH; Start 12/31/16 at 09:00 Loratadine (Claritin) 10 mg DAILY PO Last administered on 01/01/17 09:49; Admin Dose 10 MG; Start 12/31/16 at 09:00 Mometasone Furoate (Asmanex) 1 puff DAILY INH Last administered on 01/01/17 09: 46; Admin Dose 1 PUFF; Start 12/30/16 at 14:00 Atorvastatin Calcium (Lipitor) 10 mg DAILY@21 PO Last administered on 12/31/16 20:17; Admin Dose 10 MG; Start 12/30/16 at 21:00 Methylphenidate HCl (Methylin) 20 mg BID PO Last administered on 01/01/17 09:55 ; Admin Dose 20 MG; Start 12/30/16 at 21:00 Fentanyl (Duragesic 100 Mcg/Hr Patch) 1 patch Q72H TRANSDERM ; Start 01/02/17 at 12:00 Levothyroxine Sodium (Synthroid) 100 mcg DAILY@06 PO Last administered on 05:31; Admin Dose 100 MCG; Start 12/31/16 at 06:00 Pantoprazole (Protonix Tab) 40 mg DAILY@06 PO Last administered on 01/01/17 05: 31; Admin Dose 40 MG; Start 12/31/16 at 06:00 Enoxaparin Sodium (Lovenox) 40 mg DAILY SC Last administered on 01/01/17 09:52 ; Admin Dose 40 MG; Start 12/31/16 at 09:00 Psyllium Hydrophilic Mucilloid 1 pkt 1 pkt BID PO Last administered on 09:46; Admin Dose 1 PKT; Start 12/30/16 at 21:00 Levofloxacin/ Dextrose 50 ml @ 50 mls/hr Q24H IVPB ; Start 01/01/17 at 14:00 Vancomycin HCl/ Sodium Chloride (Vancocin/NS) 150 ml @ 75 mls/hr Q24H IVPB ; Start 01/01/17 at 17:00 Hydromorphone HCl (Dilaudid) 1 mg Q3 PRN IV PAIN Last administered on 01/01/17 09:43; Admin Dose 1 MG; Start 12/31/16 at 18:30 Acetaminophen/ Hydrocodone Bitart ([place] (5/325)) 1 tab Q3H PRN PO PAIN; Start 12/31/16 at 18:30 ROWENA BELCHER NP Jan 01, 2017 12:35
[2017-01-01] MEDS: LEVOFLOXACIN 250MG/D5W (PMX) 50 ML IVPB SCH (14:53)
[2017-01-01 15:20] LABS: MICROALBUMIN 0.3 mg/dL
[2017-01-01] MEDS: VANCOMYCIN 750 MG in SOD CHLORIDE 0.9% 150 ML IVPB SCH (17:11)
--- NOTE | 2017-01-01 17:49 | RADRPT ---
Vent Rate: 84 bpm RR Interval: 0 msec CO Interval: 160 msec QRS Duration: 76 msec QT Interval: 360 msec QTC Interval: 425 msec P-R-T [place]: 67 - 50 - 62 degrees Normal sinus rhythm Normal ECG Electronically Signed By: Eduardo Cline [id number]
[2017-01-01 20:44] VITALS: BP 115/59; RESP 20
[2017-01-01] MEDS: MONTELUKAST 10 MG TAB PO SCH (20:55)
[2017-01-01] MEDS: ATORVASTATIN 10 MG TAB PO SCH (20:56)
[2017-01-02 05:30] LABS: ADD SCAN DIFF NO
[2017-01-02] MEDS: LEVOTHYROXINE 100 MCG TAB PO SCH (06:00)
[2017-01-02] MEDS: PANTOPRAZOLE (EC) 40 MG TAB PO SCH (06:00)
[2017-01-02 06:01] LABS: BASOPHILS % 0.5 % (0.0-2.0); EOSINOPHILS # 0.2 10^3/ul (0.0-0.5); EOSINOPHILS % 2.9 % (0.0-7.0); HEMATOCRIT 30.4 % (37.0-47.0); HEMOGLOBIN 9.1 g/dl (12.0-16.0); LYMPHOCYTES # 0.6 10^3/ul (0.8-2.9); LYMPHOCYTES % 10.2 % (15.0-51.0); MEAN CORPUSCULAR HEMOGLOBIN 27.4 pg (29.0-33.0); MEAN CORPUSCULAR HGB CONC 29.9 g/dl (32.0-37.0); MEAN CORPUSCULAR VOLUME 91.6 fl (82.0-101.0); MEAN PLATELET VOLUME 9.7 fl (7.4-10.4); MONOCYTE # 0.9 10^3/ul (0.3-0.9); MONOCYTES % 13.9 % (0.0-11.0); NEUTROPHIL # 4.5 10^3/ul (1.6-7.5); NEUTROPHILS % 72.2 % (39.0-77.0); PLATELET COUNT 226 10^3/UL (140-415); RED BLOOD COUNT 3.32 10^6/ul (4.20-5.40); RED CELL DISTRIBUTION WIDTH 17.4 % (11.5-14.5); WHITE BLOOD COUNT 6.2 10^3/ul (4.8-10.8)
[2017-01-02 06:21] LABS: MAGNESIUM 2.1 mg/dl (1.7-2.5)
[2017-01-02 06:29] LABS: ALBUMIN 3.6 g/dl (3.3-4.9); ALBUMIN/GLOBULIN RATIO 1.38; BILIRUBIN,INDIRECT 0.1 mg/dl (0-1.1); BILIRUBIN,TOTAL 0.1 mg/dl (0.2-1.3); CALCIUM 8.6 mg/dl (8.4-10.2); CREATININE 1.22 mg/dl (0.44-1.00); POTASSIUM 3.7 mmol/L (3.5-5.1); TOTAL PROTEIN 6.2 g/dl (6.1-8.1)
[2017-01-02 08:10] VITALS: BP 110/70; PULSE 82; RESP 20
--- NOTE | 2017-01-02 08:44 | PN ---
DATE: 01/02/2017 CARDIOLOGY FOLLOWUP PROGRESS NOTE SUBJECTIVE: Discussed with the staff, the patient with no chest pain or pressure. No palpitation. Has minimal arm pain. MEDICATIONS: Reviewed. PHYSICAL EXAMINATION: VITAL SIGNS: Temperature 98.3, heart rate of 75, blood pressure 115/59, respiration rate of 20, sat urating 98%. HEENT: Normocephalic, atraumatic. No acute distress. CARDIOVASCULAR: Regular rate and rhythm, systolic murmur. PULMONARY: With no wheezes. GASTROINTESTINAL: Soft, nontender. EXTREMITIES: Left arm in dressing and wrapped. NEUROLOGIC: Awake and alert. PSYCHIATRIC: Appears to be calm and pleasant. LABORATORY: WBC 6.2, hemoglobin 9.1, platelets of 226. Sodium 143, potassium 3.7, BUN of 15, creat inine 1.22, glucose of 86. ASSESSMENT AND PLAN: 1. Status post removal of the hardware from the olecranon process of the left elbow. 2. Cellulitis of the upper extremity. 3. History of congestive heart failure secondary to diastolic dysfunction, currently stable and com pensated. 4. Electrolyte abnormality, currently stabilized. 5. Chronic obstructive pulmonary disease. 6. History of deep venous thrombosis, PE, on anticoagulation with Lovenox now. 7. Thyroid disorder, on supplement. RECOMMENDATIONS: Xarelto has been started already. We will continue with the current cardiac care. Postop care to be continued. Dictated By: FARHAN SHULTZ/SOFIE Conf#: [id number] DID#: [id number] CC: VALE GONZALEZ DO;*EndCC*
[2017-01-02] MEDS: METOPROLOL 25 MG TAB PO SCH (09:00)
[2017-01-02] MEDS: MOMETASONE 0.24 GM INHALER INH SCH (09:21)
--- NOTE | 2017-01-02 09:22 | PN ---
DATE: 01/02/2017 SUBJECTIVE: The patient is stable, no acute events overnight. No fever, chills, vomiting. OBJECTIVE: VITAL SIGNS: Blood pressure is 115/59, respiration is 20, pulse 75, temperature 98.3. HEENT: Head is normocephalic. NECK: Supple. HEART: Regular rate. LUNGS: Show diminished breath sounds at base. ABDOMEN: Soft, nontender to palpation. No rebound or guarding. EXTREMITIES: Negative for clubbing, cyanosis, edema. DERMATOLOGIC: No rashes. MUSCULOSKELETAL: The patient has dressing over left elbow. Joint intact. DERMATOLOGIC: No rashes. NEUROLOGIC: No focal deficits. MEDICATIONS: Reviewed. LABORATORY DATA: Showed sodium 143, potassium 3.7, BUN 15, creatinine 1.22. White count 6.2, hemog lobin 9.1, hematocrit 30.4, platelet count is 226. ASSESSMENT AND PLAN: 1. Status post removal of hardware from olecranon process, followed by plastic surgical closure. T he patient is currently stable. Continue to monitor. Follow up with Dr. Bagley for recommendations. 2. Cellulitis, lower extremity. Continue current antibiotic regimen. 3. History of coronary artery disease. Continue medical management. 4. History of diastolic heart failure. The patient is currently compensated. Continue medical man agement. 5. Renal insufficiency. Etiology is likely due to hemodynamics. Will discontinue nonsteroidal ant iinflammatory drugs. Monitor closely on diuretic therapy. 6. Polyneuropathy. Continue Neurontin. 7. Hyperkalemia, resolved. 8. Chronic pain syndrome. Continue current pain regimen. 9. History of depression. Continue Wellbutrin. 10. Cognitive decline. Continue to monitor. 11. History of chronic obstructive pulmonary disease. Continue current medical management. Contin ue supplemental oxygen, nebulizers, Spiriva. 12. Allergies. Continue fluticasone and Claritin. 13. Dyslipidemia. Continue statin therapy. 14. History of deep venous thrombosis and pulmonary embolism. The patient is status post inferior vena cava filter, currently on Lovenox. Will resume Xarelto. 15. Hypothyroidism. Continue Synthroid. 16. Mild anemia. Monitor hemoglobin and hematocrit levels. 17. Gastrointestinal and deep venous thrombosis prophylaxis. Continue proton pump inhibitor and Xa relto. Dictated By: VALE DUKE/SOFIE Conf#: [id number] [facility]#: [id number]
[2017-01-02] MEDS: TIOTROPIUM 18 MCG CAPSULE INHA DEV INH SCH (09:25)
[2017-01-02] MEDS: SPIRONOLACTONE 25 MG TAB PO SCH (09:25)
[2017-01-02] MEDS: LORATADINE 10 MG TAB PO SCH (09:25)
[2017-01-02] MEDS: DOCUSATE SODIUM 100 MG CAP PO SCH (09:25)
[2017-01-02] MEDS: DULOXETINE 30 MG CAP DR PO SCH (09:26)
[2017-01-02] MEDS: BACLOFEN 10 MG TAB PO SCH ×2 (09:34→21:03)
[2017-01-02] MEDS: FUROSEMIDE 40 MG TAB PO SCH (09:34)
[2017-01-02] MEDS: PSYLLIUM (SUGAR FREE) PACKET PO SCH ×2 (09:35→21:03)
[2017-01-02] MEDS: BUPROPION (XL) 150 MG TAB PO SCH (09:36)
[2017-01-02] MEDS: GABAPENTIN 400 MG CAP PO SCH ×3 (09:36→21:04)
[2017-01-02] MEDS: SENNA TAB PO SCH (09:36)
[2017-01-02] MEDS: METHYLPHENIDATE 20 MG TAB PO SCH ×2 (09:44→21:04)
[2017-01-02] MEDS: LEVOFLOXACIN 250MG/D5W (PMX) 50 ML IVPB SCH (14:32)
--- NOTE | 2017-01-02 15:49 | CONS ---
Date/Time of Note Date/Time of Note DATE: 01/02/17 TIME: 15:48 Assessment/Plan Assessment/Plan Chief Complaint/Hosp Course SUBJECTIVE: The patient is alert, confused, looks comfortable, no fevers. INDWELLINGS: Right upper extremity PICC line. Abx: Vanco, Levaquin ALLERGIES: 1. PENICILLIN. 2. SULFA. 3. ERYTHROMYCIN. PHYSICAL EXAMINATION: GENERAL: Well-developed, elderly woman who is alert, in no distress. HEENT: Head atraumatic, normocephalic. Sclerae anicteric. Buccal mucosa pink. NECK: Supple. CHEST: Rise symmetrical. Breath sounds clear. HEART: S1, S2. ABDOMEN: Soft, bowel sounds present. EXTREMITIES: Without cyanosis. Bilateral lower extremities chronic venous stasis, left elbow with visibly exposed hardware. ASSESSMENT: 1. Left elbow exposed hardware==> s/p removed 12/31/16. 2. Bilateral lower extremities acute on chronic cellulitis with chronic venous stasis. 3. History of congestive heart failure and coronary artery disease. 4. History of chronic obstructive pulmonary disease. 5. History of deep venous thrombosis and pulmonary embolism, status post inferior vena cava filter placement. PLAN: Remains stable, continue abx for 4-6 weeks, change Levaquin to PO, f/u ortho rec-s ARELIS Bagley Problems: Consultation Date/Type/Reason Admit Date/Time Dec 30, 2016 at 10:00 Initial Consult Date 12/30/16 Type of Consultation: ID Exam/Review of Systems Vital Signs Vitals Vital Signs Date Time Temp Pulse Resp B/P Pulse Ox O2 Delivery O2 Flow Rate FiO2 01/01/17 20:44 98.3 75 20 115/59 98 01/01/17 14:00 3.0 01/01/17 09:00 Nasal Cannula Intake and Output 01/01/17 01/01/17 01/02/17 15:00 23:00 07:00 Intake Total 400 ml 1100 ml 500 ml Output Total 700 ml Balance 400 ml 1100 ml -200 ml Results Result Diagram: 01/02/17 0516 01/02/17 0516 Results 24 hrs Laboratory Tests Test 01/02/17 05:16 White Blood Count 6.2 Red Blood Count 3.32 L Hemoglobin 9.1 L Hematocrit 30.4 L Mean Corpuscular Volume 91.6 Mean Corpuscular Hemoglobin 27.4 L Mean Corpuscular Hemoglobin Concent 29.9 L Red Cell Distribution Width 17.4 H Platelet Count 226 Mean Platelet Volume 9.7 Neutrophils % 72.2 Lymphocytes % 10.2 L Monocytes % 13.9 H Eosinophils % 2.9 Basophils % 0.5 Nucleated Red Blood Cells % 0.0 Neutrophils # 4.5 Lymphocytes # 0.6 L Monocytes # 0.9 Eosinophils # 0.2 Basophils # 0.0 Nucleated Red Blood Cells # 0.0 Sodium Level 143 Potassium Level 3.7 Chloride Level 106 Carbon Dioxide Level 32 H Anion Gap 9 Blood Urea Nitrogen 15 Creatinine 1.22 H Glucose Level 86 # Calcium Level 8.6 Phosphorus Level 4.0 Magnesium Level 2.1 Total Bilirubin 0.1 L Direct Bilirubin 0.00 Indirect Bilirubin 0.1 Aspartate Amino Transf (AST/SGOT) 22 Alanine Aminotransferase (ALT/SGPT) 22 Alkaline Phosphatase 81 Total Protein 6.2 Albumin 3.6 Globulin 2.60 Albumin/Globulin Ratio 1.38 Medications Medications Current Medications Baclofen (Lioresal) 20 mg BID PO Last administered on 01/02/17 09:34; Admin Dose 20 MG; Start 12/30/16 at 21:00 Bupropion HCl (Wellbutrin Xl) 300 mg DAILY PO Last administered on 01/02/17 09: 36; Admin Dose 300 MG; Start 12/30/16 at 15:00 Celecoxib (Celebrex) 200 mg DAILY PO Last administered on 01/01/17 09:49; Admin Dose 200 MG; Start 12/31/16 at 09:00; Status Future Hold Docusate Sodium (Colace) 100 mg DAILY PO Last administered on 01/02/17 09:25; Admin Dose 100 MG; Start 12/31/16 at 09:00 Duloxetine HCl (Cymbalta) 60 mg DAILY PO Last administered on 01/02/17 09:26; Admin Dose 60 MG; Start 12/31/16 at 09:00 Furosemide (Lasix) 40 mg DAILY PO Last administered on 01/02/17 09:34; Admin Dose 40 MG; Start 12/31/16 at 09:00 Gabapentin (Neurontin) 800 mg TID PO Last administered on 01/02/17 12:28; Admin Dose 800 MG; Start 12/30/16 at 13:00 Hydromorphone HCl (Dilaudid) 2 mg Q4H PRN PO PAIN; Start 12/30/16 at 13:00 Meclizine HCl (Antivert) 12.5 mg TID PRN PO DIZZINESS; Start 12/30/16 at 13:00 Metoprolol Tartrate (Lopressor) 12.5 mg DAILY PO Last administered on 01/01/17 09:49; Admin Dose 12.5 MG; Start 12/31/16 at 09:00 Montelukast Sodium (Singulair) 10 mg QHS PO Last administered on 01/01/17 20:55 ; Admin Dose 10 MG; Start 12/30/16 at 21:00 Senna (Senokot) 1 tab DAILY PO Last administered on 01/02/17 09:36; Admin Dose 1 TAB; Start 12/31/16 at 09:00 Spironolactone (Aldactone) 25 mg DAILY PO Last administered on 01/02/17 09:25; Admin Dose 25 MG; Start 12/31/16 at 09:00 Tiotropium [place] (Spiriva) 1 inh DAILY INH Last administered on 01/02/17 09: 25; Admin Dose 1 INH; Start 12/31/16 at 09:00 Loratadine (Claritin) 10 mg DAILY PO Last administered on 01/02/17 09:25; Admin Dose 10 MG; Start 12/31/16 at 09:00 Mometasone Furoate (Asmanex) 1 puff DAILY INH Last administered on 01/02/17 09: 21; Admin Dose 1 PUFF; Start 12/30/16 at 14:00 Atorvastatin Calcium (Lipitor) 10 mg DAILY@21 PO Last administered on 01/01/17 20:56; Admin Dose 10 MG; Start 12/30/16 at 21:00 Methylphenidate HCl (Methylin) 20 mg BID PO Last administered on 01/02/17 09:44 ; Admin Dose 20 MG; Start 12/30/16 at 21:00 Fentanyl (Duragesic 100 Mcg/Hr Patch) 1 patch Q72H TRANSDERM Last administered on 01/02/17 12:43; Admin Dose 1 PATCH; Start 01/02/17 at 12:00 Levothyroxine Sodium (Synthroid) 100 mcg DAILY@06 PO Last administered on 06:00; Admin Dose 100 MCG; Start 12/31/16 at 06:00 Pantoprazole (Protonix Tab) 40 mg DAILY@06 PO Last administered on 01/02/17 06: 00; Admin Dose 40 MG; Start 12/31/16 at 06:00 Psyllium Hydrophilic Mucilloid 1 pkt 1 pkt BID PO Last administered on 09:35; Admin Dose 1 PKT; Start 12/30/16 at 21:00 Levofloxacin/ Dextrose 50 ml @ 50 mls/hr Q24H IVPB Last administered on 14:32; Admin Dose 50 MLS/HR; Start 01/01/17 at 14:00 Vancomycin HCl/ Sodium Chloride (Vancocin/NS) 150 ml @ 75 mls/hr Q24H IVPB Last administered on 01/01/17 17:11; Admin Dose 75 MLS/HR; Start 01/01/17 at 17: 00 Hydromorphone HCl (Dilaudid) 1 mg Q3 PRN IV PAIN Last administered on 01/01/17 09:43; Admin Dose 1 MG; Start 12/31/16 at 18:30 Acetaminophen/ Hydrocodone Bitart ([place] (5/325)) 1 tab Q3H PRN PO PAIN Last administered on 01/01/17 22:11; Admin Dose 1 TAB; Start 12/31/16 at 18:30 Miscellaneous Information (*Rx Drug Level Order Reminder*) VANCOMYCIN TROUGH 01/03 AT 1600 ONCE ONCE XX ; Start 01/03/17 at 16:00; Stop 01/03/17 at 16:01 ROWENA BELCHER NP Jan 02, 2017 15:49
[2017-01-02] MEDS: VANCOMYCIN 750 MG in SOD CHLORIDE 0.9% 150 ML IVPB SCH (17:26)
[2017-01-02] MEDS ORDERED: RIVAROXABAN 15 MG TABLET PO SCH (17:55)
[2017-01-02 19:28] VITALS: BP 116/49; RESP 19
[2017-01-02] MEDS: ATORVASTATIN 10 MG TAB PO SCH (21:03)
[2017-01-02] MEDS: MONTELUKAST 10 MG TAB PO SCH (21:04)
[2017-01-03] MEDS: LEVOTHYROXINE 100 MCG TAB PO SCH (05:09)
[2017-01-03] MEDS: PANTOPRAZOLE (EC) 40 MG TAB PO SCH (05:09)
[2017-01-03 05:21] LABS: CALCIUM 9.3 mg/dl (8.4-10.2); CREATININE 1.3 mg/dl (0.44-1.00); MAGNESIUM 2.2 mg/dl (1.7-2.5); PHOSPHORUS 4.2 mg/dl (2.5-4.9); POTASSIUM 3.5 mmol/L (3.5-5.1)
[2017-01-03] MEDS ORDERED: LEVOFLOXACIN 500 MG TAB PO SCH (06:00)
--- NOTE | 2017-01-03 08:13 | DS ---
DATE OF ADMISSION: 12/30/2016 DATE OF DISCHARGE: HOSPITAL COURSE: This is a 76-year-old female, well known to me, with a past medical history of chr onic diastolic heart failure, a history of hypertension, a history of coronary artery disease, dysli pidemia, COPD, a history of hypothyroidism, a history of deep venous thrombosis, pulmonary embolism, status post IVC filter, a history of lower extremity cellulitis, a history of cognitive decline, a history of chronic pain syndrome, who presented to [facility] to undergo surgical correction of exposed hardware. The patient's history began 2 to 3 months ago when she suffered a m echanical fall, resulting in a left humeral fracture. The patient underwent left humeral arthroplas ty at an outside hospital. Following the surgery the patient had a prolonged rehabilitation, where she was eventually at a long-term and then transferred to assisted living. At [facility] th e patient developed exposure of the left hardware. As a result, she was taken to an outside hospita , given IV antibiotics. She went to a skilled nurse facility and was transferred to [facility] to undergo surgical correction. The patient was seen by Dr. Bagley. The patient was th en cleared per cardiology and pulmonary. She then underwent hardware removal of the olecranon proce ss, with plastic surgical closure. The patient tolerated the procedure well, without any complicati ons. The patient also was seen by infectious disease, Dr. Peters, and was placed on antibiotic ther apy for cellulitis and will continue for 4 to 6 weeks. The patient's other medical problems includi ng coronary artery disease, depression, dyslipidemia and hypothyroidism have been stable during the hospital course. The patient did have some mild renal insufficiency, likely due to diuretic therapy , which were adjusted prior to her discharge. Currently at this time the patient is stable, in no a cute distress and will be discharged to a skilled nurse facility where she will be followed up with Dr. Bagley in 1 month's time and by Dr. Pearce. FINAL DIAGNOSES: 1. Left humeral hardware exposure. 2. Cellulitis of the left lower extremity. 3. Coronary artery disease 4. Diastolic heart failure. 5. Polyneuropathy. 6. Chronic pain syndrome. 7. Depression. 8. Cognitive decline. 9. Chronic obstructive pulmonary disease. 10. Allergies. 11. Lower extremity edema. 12. Renal insufficiency. 13. Deep venous thrombosis and pulmonary embolism. 14. Hypothyroidism. 15. Mild anemia. At the time of discharge the patient is stable, in no acute distress. Please note, I spent over 30 minutes of time preparing the patient's discharge. FINAL MEDICATIONS: See reconciliation list. Dictated By: VALE DUKE/SOFIE Conf#: [id number] DID#: [id number]
[2017-01-03 08:35] VITALS: BP 110/67; RESP 18
[2017-01-03] MEDS: SENNA TAB PO SCH (09:32)
[2017-01-03] MEDS: PSYLLIUM (SUGAR FREE) PACKET PO SCH (09:32)
[2017-01-03] MEDS: SPIRONOLACTONE 25 MG TAB PO SCH (09:32)
[2017-01-03] MEDS: DOCUSATE SODIUM 100 MG CAP PO SCH (09:32)
[2017-01-03] MEDS: LORATADINE 10 MG TAB PO SCH (09:33)
[2017-01-03] MEDS: DULOXETINE 30 MG CAP DR PO SCH (09:33)
[2017-01-03] MEDS: BUPROPION (XL) 150 MG TAB PO SCH (09:33)
[2017-01-03] MEDS: GABAPENTIN 400 MG CAP PO SCH ×2 (09:33→13:46)
[2017-01-03] MEDS: BACLOFEN 10 MG TAB PO SCH (09:33)
[2017-01-03] MEDS: TIOTROPIUM 18 MCG CAPSULE INHA DEV INH SCH (09:34)
[2017-01-03] MEDS: MOMETASONE 0.24 GM INHALER INH SCH (09:35)
[2017-01-03] MEDS: METOPROLOL 25 MG TAB PO SCH (09:36)
[2017-01-03] MEDS: METHYLPHENIDATE 20 MG TAB PO SCH (11:22)
--- NOTE | 2017-01-03 13:33 | CONS ---
Date/Time of Note Date/Time of Note DATE: 01/03/17 TIME: 13:30 Assessment/Plan Assessment/Plan Chief Complaint/Hosp Course SUBJECTIVE: The patient is alert, confused, looks comfortable, no fevers. INDWELLINGS: Right upper extremity PICC line. Abx: Vanco, Levaquin ALLERGIES: 1. PENICILLIN. 2. SULFA. 3. ERYTHROMYCIN. PHYSICAL EXAMINATION: GENERAL: Well-developed, elderly woman who is alert, in no distress. HEENT: Head atraumatic, normocephalic. Sclerae anicteric. Buccal mucosa pink. NECK: Supple. CHEST: Rise symmetrical. Breath sounds clear. HEART: S1, S2. ABDOMEN: Soft, bowel sounds present. EXTREMITIES: Without cyanosis. Bilateral lower extremities chronic venous stasis, left elbow with visibly exposed hardware. ASSESSMENT: 1. Left elbow exposed hardware==> s/p removed 12/31/16, Not infected per Dr. Bagley 2. Bilateral lower extremities acute on chronic cellulitis with chronic venous stasis. 3. History of congestive heart failure and coronary artery disease. 4. History of chronic obstructive pulmonary disease. 5. History of deep venous thrombosis and pulmonary embolism, status post inferior vena cava filter placement. PLAN: Remains stable, per discussion with Dr. Pearce will keep patient on oral Levaquin for 4-6 weeks, complete 7 days IV Vanco. Monitor Renal function. Problems: Consultation Date/Type/Reason Admit Date/Time Dec 30, 2016 at 10:00 Initial Consult Date 12/30/16 Type of Consultation: ID Exam/Review of Systems Vital Signs Vitals Vital Signs Date Time Temp Pulse Resp B/P Pulse Ox O2 Delivery O2 Flow Rate FiO2 01/03/17 08:35 98.0 56 18 110/67 90 01/02/17 08:10 Room Air 01/01/17 14:00 3.0 Intake and Output 01/02/17 01/02/17 01/03/17 15:00 23:00 07:00 Intake Total 1040 ml 720 ml Output Total 650 ml Balance 1040 ml 70 ml Results Result Diagram: 01/02/17 0516 01/03/17 0440 Results 24 hrs Laboratory Tests Test 01/03/17 04:40 Sodium Level 145 H Potassium Level 3.5 Chloride Level 105 Carbon Dioxide Level 31 Anion Gap 13 Blood Urea Nitrogen 13 Creatinine 1.30 H Glucose Level 88 Calcium Level 9.3 Phosphorus Level 4.2 Magnesium Level 2.2 Medications Medications Current Medications Baclofen (Lioresal) 20 mg BID PO Last administered on 01/03/17 09:33; Admin Dose 20 MG; Start 12/30/16 at 21:00 Bupropion HCl (Wellbutrin Xl) 300 mg DAILY PO Last administered on 01/03/17 09: 33; Admin Dose 300 MG; Start 12/30/16 at 15:00 Celecoxib (Celebrex) 200 mg DAILY PO Last administered on 01/01/17 09:49; Admin Dose 200 MG; Start 12/31/16 at 09:00; Status Future Hold Docusate Sodium (Colace) 100 mg DAILY PO Last administered on 01/03/17 09:32; Admin Dose 100 MG; Start 12/31/16 at 09:00 Duloxetine HCl (Cymbalta) 60 mg DAILY PO Last administered on 01/03/17 09:33; Admin Dose 60 MG; Start 12/31/16 at 09:00 Gabapentin (Neurontin) 800 mg TID PO Last administered on 01/03/17 09:33; Admin Dose 800 MG; Start 12/30/16 at 13:00 Hydromorphone HCl (Dilaudid) 2 mg Q4H PRN PO PAIN; Start 12/30/16 at 13:00 Meclizine HCl (Antivert) 12.5 mg TID PRN PO DIZZINESS; Start 12/30/16 at 13:00 Metoprolol Tartrate (Lopressor) 12.5 mg DAILY PO Last administered on 01/03/17 09:36; Admin Dose 12.5 MG; Start 12/31/16 at 09:00 Montelukast Sodium (Singulair) 10 mg QHS PO Last administered on 01/02/17 21:04 ; Admin Dose 10 MG; Start 12/30/16 at 21:00 Senna (Senokot) 1 tab DAILY PO Last administered on 01/03/17 09:32; Admin Dose 1 TAB; Start 12/31/16 at 09:00 Spironolactone (Aldactone) 25 mg DAILY PO Last administered on 01/03/17 09:32; Admin Dose 25 MG; Start 12/31/16 at 09:00 Tiotropium [place] (Spiriva) 1 inh DAILY INH Last administered on 01/03/17 09: 34; Admin Dose 1 INH; Start 12/31/16 at 09:00 Loratadine (Claritin) 10 mg DAILY PO Last administered on 01/03/17 09:33; Admin Dose 10 MG; Start 12/31/16 at 09:00 Mometasone Furoate (Asmanex) 1 puff DAILY INH Last administered on 01/03/17 09: 35; Admin Dose 1 PUFF; Start 12/30/16 at 14:00 Atorvastatin Calcium (Lipitor) 10 mg DAILY@21 PO Last administered on 01/02/17 21:03; Admin Dose 10 MG; Start 12/30/16 at 21:00 Methylphenidate HCl (Methylin) 20 mg BID PO Last administered on 01/03/17 11:22 ; Admin Dose 20 MG; Start 12/30/16 at 21:00 Fentanyl (Duragesic 100 Mcg/Hr Patch) 1 patch Q72H TRANSDERM Last administered on 01/02/17 12:43; Admin Dose 1 PATCH; Start 01/02/17 at 12:00 Levothyroxine Sodium (Synthroid) 100 mcg DAILY@06 PO Last administered on 05:09; Admin Dose 100 MCG; Start 12/31/16 at 06:00 Pantoprazole (Protonix Tab) 40 mg DAILY@06 PO Last administered on 01/03/17 05: 09; Admin Dose 40 MG; Start 12/31/16 at 06:00 Psyllium Hydrophilic Mucilloid 1 pkt 1 pkt BID PO Last administered on 09:32; Admin Dose 1 PKT; Start 12/30/16 at 21:00 Vancomycin HCl/ Sodium Chloride (Vancocin/NS) 150 ml @ 75 mls/hr Q24H IVPB Last administered on 01/02/17 17:26; Admin Dose 75 MLS/HR; Start 01/01/17 at 17: 00 Hydromorphone HCl (Dilaudid) 1 mg Q3 PRN IV PAIN Last administered on 01/01/17 09:43; Admin Dose 1 MG; Start 12/31/16 at 18:30 Acetaminophen/ Hydrocodone Bitart ([place] (5/325)) 1 tab Q3H PRN PO PAIN Last administered on 01/01/17 22:11; Admin Dose 1 TAB; Start 12/31/16 at 18:30 Miscellaneous Information (*Rx Drug Level Order Reminder*) VANCOMYCIN TROUGH 01/03 AT 1600 ONCE ONCE XX ; Start 01/03/17 at 16:00; Stop 01/03/17 at 16:01 Levofloxacin (Levaquin) 500 mg DAILY@06 PO Last administered on 01/03/17 05:09 ; Admin Dose 500 MG; Start 01/03/17 at 06:00 ALEJANDRO SOL NP Jan 03, 2017 13:33
[2017-01-03] MEDS ORDERED: HEPARIN (10 UNITS/ML) 5ML SYG CATHETER SCH (15:00)
== END 2017-01-03 15:10 | DRG 496 ==
LOC: MS1 10:00
PROVIDERS: ADMIT Internal Medicine; ATTEND Internal Medicine
PROC: 0PPL04Z Removal of Internal Fixation Device from Left Ulna, Open Approach (ICD-10-PCS; principal; 2016-12-31 16:00)
DX: T84.193A Other mechanical complication of internal fixation device of bone of left forearm, initial encounter (principal); I50.32 Chronic diastolic (congestive) heart failure; E11.42 Type 2 diabetes mellitus with diabetic polyneuropathy; I11.0 Hypertensive heart disease with heart failure; L03.115 Cellulitis of right lower limb; E87.5 Hyperkalemia; L03.114 Cellulitis of left upper limb; L03.116 Cellulitis of left lower limb; I25.10 Atherosclerotic heart disease of native coronary artery without angina pectoris; E78.5 Hyperlipidemia, unspecified; J44.9 Chronic obstructive pulmonary disease, unspecified; Z99.81 Dependence on supplemental oxygen; E03.9 Hypothyroidism, unspecified; Z86.718 Personal history of other venous thrombosis and embolism; Z86.711 Personal history of pulmonary embolism; Z95.828 Presence of other vascular implants and grafts; G89.4 Chronic pain syndrome; F32.9 Major depressive disorder, single episode, unspecified; R41.81 Age-related cognitive decline; J30.9 Allergic rhinitis, unspecified; D64.9 Anemia, unspecified; I87.8 Other specified disorders of veins; N28.9 Disorder of kidney and ureter, unspecified; Y83.8 Other surgical procedures as the cause of abnormal reaction of the patient, or of later complication, without mention of misadventure at the time of the procedure; Y92.009 Unspecified place in unspecified non-institutional (private) residence as the place of occurrence of the external cause; T50.2X5A Adverse effect of carbonic-anhydrase inhibitors, benzothiadiazides and other diuretics, initial encounter; Y92.239 Unspecified place in hospital as the place of occurrence of the external cause
CPT/HCPCS: 71010; 73070; 80048; 80053; 81003; 82043; 83735; 84100; 84132; 84155; 84300; 85025; 85610; 87081; 88300; 93005; 93306; J1170; J1650; J1956; J2250; J2405; J2795; J3010; J3370; J3480; J7042; J7050

== ENCOUNTER 2017-01-06 06:02 | Observation (INO) | payer MEDICARE, BC ==
[~2017-01-06] VITALS: Ht 152.4 cm; Wt 75.0 kg
[~2017-01-06 06:02] MED LIST changes: -CELE200C PO; -FURO40TA4 PO; -POTA99TA5 PO
[2017-01-06] MEDS ORDERED: METHYLPREDNISOLONE 125 MG INJ IV STA (06:27)
[2017-01-06] MEDS ORDERED: ALBUTEROL 0.5% (NEB) 2.5 MG/0.5 ML AMP INH STA (06:27)
[2017-01-06 07:00] LABS: ADD SCAN DIFF NO
[2017-01-06 07:08] LABS: ABNORMAL IP MESSAGE 1; BASOPHILS % 0.5 % (0.0-2.0); EOSINOPHILS # 0.4 10^3/ul (0.0-0.5); EOSINOPHILS % 4.3 % (0.0-7.0); HEMATOCRIT 30.7 % (37.0-47.0); HEMOGLOBIN 9.3 g/dl (12.0-16.0); LYMPHOCYTES # 0.5 10^3/ul (0.8-2.9); LYMPHOCYTES % 6.2 % (15.0-51.0); MEAN CORPUSCULAR HEMOGLOBIN 27.8 pg (29.0-33.0); MEAN CORPUSCULAR HGB CONC 30.3 g/dl (32.0-37.0); MEAN CORPUSCULAR VOLUME 91.6 fl (82.0-101.0); MONOCYTES % 11.5 % (0.0-11.0); NEUTROPHIL # 6.7 10^3/ul (1.6-7.5); PLATELET COUNT 212 10^3/UL (140-415); RED BLOOD COUNT 3.35 10^6/ul (4.20-5.40); RED CELL DISTRIBUTION WIDTH 18.4 % (11.5-14.5); WHITE BLOOD COUNT 8.8 10^3/ul (4.8-10.8)
[2017-01-06 07:27] LABS: ALANINE AMINOTRANSFERASE 27 IU/L (13-69); ALBUMIN 3.5 g/dl (3.3-4.9); ALBUMIN/GLOBULIN RATIO 1.29; ALKALINE PHOSPHATASE 79 IU/L (42-121); ANION GAP 12 (8-16); ASPARTATE AMINO TRANSFERASE 19 IU/L (15-46); BILIRUBIN,INDIRECT 0.1 mg/dl (0-1.1); BILIRUBIN,TOTAL 0.1 mg/dl (0.2-1.3); BLOOD UREA NITROGEN 18 mg/dl (7-20); CALCIUM 8.9 mg/dl (8.4-10.2); CARBON DIOXIDE 27 mmol/L (21-31); CHLORIDE 111 mmol/L (97-110); CREATININE 1.23 mg/dl (0.44-1.00); GLUCOSE 80 mg/dl (70-220); POTASSIUM 4.1 mmol/L (3.5-5.1); SODIUM 146 mmol/L (135-144); TOTAL PROTEIN 6.2 g/dl (6.1-8.1)
[2017-01-06 07:35] LABS: INR 1.16; PROTIME 14.8 Sec (12.2-14.2); PT RATIO 1.2
[2017-01-06 07:36] LABS: PARTIAL THROMBOPLASTIN TIME 34.3 Sec (25.0-35.0)
[2017-01-06 07:38] LABS: B-TYPE NATRIURETIC PEPTIDE 1760 PG/ML (0-450); TROPONIN-I < 0.012 ng/ml (0.00-0.12)
--- NOTE | 2017-01-06 07:55 | RADRPT ---
PROCEDURE: XR Chest. CLINICAL INDICATION: Chest pain TECHNIQUE: Single frontal chest x-ray. COMPARISON: 12/30/2016 FINDINGS: No acute infiltrate, pleural effusion or pneumothorax is identified. Cardiomediastinal silhouette i s within normal limits. The patient is status post sternotomy. Right-sided PICC line remains in pl mario. Thoracolumbar spinal rods are again noted. The osseous structures are otherwise unremarkable IMPRESSION: 1. No evidence of acute cardiopulmonary process. 2. Right-sided PICC line remains in place. RPTAT: PP .Prosper Ivy MD, MD Date Time Electronically viewed and signed by .Prosper Ivy MD, MD on 01/06/2017 07:54 .R/
[2017-01-06] MEDS ORDERED: ACET-2047 PO (08:54)
[2017-01-06] MEDS ORDERED: SPIR25TA PO (08:56)
[2017-01-06] MEDS ORDERED: MOME0.132 INHALATION (08:56)
[2017-01-06] MEDS ORDERED: BUPR300T36 PO (08:57)
--- NOTE | 2017-01-06 08:59 | ERA ---
ER Documentation Chief Complaint Date/Time DATE: 01/06/17 TIME: 08:57 Chief Complaint patient has shortness of breath; "they couldn't get any air in me". HPI This is a 76-year-old female who complains of some chest pain onset last night and some shortness of breath. She also says she has had a productive yellow- green cough for the past 3 days. Is currently on antibiotics. The patient states she has a hernia from her cardiac bypass surgery she says that the pain is underneath this area at the xiphoid process but also in the substernal region. She says the pain radiates up her chest and to the left side. No diaphoresis no palpitations no syncope. Patient is a very poor historian. ROS All systems reviewed and are negative except as per history of present illness. Medications Home Meds Reported Medications Mometasone Furoate* (Asmanex*) 110 Mcg/Inh - 7 Act Aer.pow.ba, 1 PUFF INHALATION QHS, #1 INHALER 01/06/17 Spironolactone* (Aldactone*) 25 Mg Tablet, 25 MG PO DAILY, #30 TAB 01/06/17 Acetaminophen* (Acetaminophen*) 650 Mg Tablet, 650 MG PO Q4 Y for PAIN AND OR ELEVATED TEMP, #30 TAB 01/06/17 [Methyphenidate] No Conflict Check, PO 07/12/15 Simvastatin* (Simvastatin*) 5 Mg Tablet, 10 MG PO QHS, #30 TAB 07/12/15 Fluticasone Propionate* (Flovent* 44) 13 Gm Aer.w.adap, 1 PUFF INHALATION BID, # 1 INHALER 07/12/15 Duloxetine Hcl* (Duloxetine Hcl*) 60 Mg Capsule.dr, 60 MG PO DAILY, #30 CAP 07/12/15 [Lidocaine Patch] No Conflict Check 07/12/15 Calcium Carbonate/Vitamin D3 (Calcium + D Tablet) 1 Udtab Tablet, 1 UDTAB PO, TAB 07/12/15 Psyllium* (Metamucil*) 1 Pkt Susp, 1 PKT PO BID, PACKET 07/12/15 Sennosides* (Senna*) 8.6 Mg Capsule, 1 CAP PO DAILY, CAP 07/12/15 Desloratadine (Clarinex) 5 Mg Tablet, 5 MG PO DAILY, TAB 07/12/15 Docusate Sodium* (Docusate Sodium*) 100 Mg Capsule, 100 MG PO DAILY, #30 CAP 07/12/15 Pantoprazole* (Pantoprazole*) 40 Mg Tablet.dr, 40 MG PO DAILY, TAB 07/12/15 Fentanyl (Fentanyl) 1 Each Patch.td72, 1 EACH TD 07/12/15 Baclofen* (Baclofen*) 20 Mg Tablet, 20 MG PO BID, TAB 07/12/15 Hydromorphone Hcl* (Hydromorphone Hcl*) 2 Mg Tablet, 2 MG PO Q4H Y for PAIN, TAB 07/12/15 Gabapentin* (Gabapentin*) 800 Mg Tablet, 800 MG PO TID, TAB 07/12/15 [L-Thyroxine] No Conflict Check, PO 07/12/15 Bupropion Hcl* (Bupropion Hcl*) 100 Mg Tablet, 300 MG PO DAILY, TAB 07/12/15 Meclizine Hcl* (Meclizine Hcl*) 12.5 Mg Tablet, 10 MG PO TID Y for DIZZINESS, TAB 07/12/15 Tiotropium [place]* (Spiriva*) 18 Mcg Cap.w.dev, 1 CAP INHALATION DAILY, #1 EA 07/12/15 Montelukast Sodium* (Montelukast Sodium*) 10 Mg Tablet, 10 MG PO QHS, #30 TAB 07/12/15 Rivaroxaban* (Xarelto*) 20 Mg Tablet, 20 MG PO WITH DINNER, TAB 07/12/15 Metoprolol Tartrate* (Lopressor*) 25 Mg Tab, 12.5 MG PO DAILY, #60 TAB 07/12/15 Discontinued Reported Medications Spironolactone* (Spironolactone*) 100 Mg Tablet, 25 MG PO DAILY, TAB 07/12/15 Potassium (Potassium) 99 Mg Tablet, 10 MEQ PO, TAB 07/12/15 Furosemide* (Furosemide*) 40 Mg Tablet, 40 MG PO DAILY, TAB 07/12/15 Celecoxib* (Celebrex*) 200 Mg Capsule, 200 MG PO DAILY, CAP 07/12/15 Allergies Allergies: Coded Allergies: Penicillins (Unverified Allergy, Unknown, 07/12/15) Sulfa (Sulfonamide Antibiotics) (Unverified Allergy, Unknown, 07/12/15) erythromycin base (Unverified Allergy, Unknown, 07/12/15) morphine (Unverified Allergy, Unknown, 07/12/15) PMhx/Soc History of Surgery: Yes (BACK SX, OPEN HEART SX, LT ELBOW SX) Anesthesia Reaction: No Hx Neurological Disorder: No Hx Respiratory Disorders: Yes (COPD OXYGEN DEPENDENT) Hx Cardiac Disorders: Yes (HTN) Hx Psychiatric Problems: No Hx Miscellaneous Medical Probl: No Hx Alcohol Use: No Hx Substance Use: No Hx Tobacco Use: Yes Smoking Status: Current every day smoker FmHx Family History: No coronary disease Physical Exam Vitals Vital Signs Date Time Temp Pulse Resp B/P Pulse Ox O2 Delivery O2 Flow Rate FiO2 01/06/17 08:24 72 16 104/48 98 2.0 01/06/17 07:37 87 19 98 Nasal Cannula 2.0 01/06/17 07:00 77 16 118/91 94 01/06/17 06:45 Nasal Cannula 2 01/06/17 06:12 98.9 84 16 125/58 94 Physical Exam Const: Well-developed, well-nourished Head: Atraumatic, normocephalic Eyes: Normal Conjunctiva, PERRLA, EOMI, normal sclera, no nystagmus ENT: Normal External Ears, Nose and Mouth, moist mucus membranes. Neck: Full range of motion. No meningismus, no lymphadenopathy. Resp: Clear to auscultation bilaterally, no wheezing, rhonchi, rales Cardio: Regular rate and rhythm, no murmurs, S1 S2 present Abd: Soft,, there is a subxiphoid easily reducible hernia that is mildly tender non tender x 4, non distended. Normal bowel sounds, no guarding or rebound, no pulsitile abdominal masses or bruits Skin: No petechiae or rashes, no ecchymosis , no maculopapular rash Back: No midline or flank tenderness Ext: No cyanosis, or edema, FROM x 4, normal inspection, neurovascularly intact x 4 Neur: Awake and alert, STR 5/5 x 4, sensation intact x 4, no focal findings, cerebellum intact Psych: Normal Mood and Affect Result Diagram: 01/06/17 0640 01/06/17 0640 Results 24 hrs Laboratory Tests Test 01/06/17 06:40 White Blood Count 8.810^3/ul Red Blood Count 3.3510^6/ul Hemoglobin 9.3g/dl Hematocrit 30.7% Mean Corpuscular Volume 91.6fl Mean Corpuscular Hemoglobin 27.8pg Mean Corpuscular Hemoglobin Concent 30.3g/dl Red Cell Distribution Width 18.4% Platelet Count 76361^3/UL Mean Platelet Volume 10.0fl Neutrophils % 77.0% Lymphocytes % 6.2% Monocytes % 11.5% Eosinophils % 4.3% Basophils % 0.5% Nucleated Red Blood Cells % 0.0/100WBC Neutrophils # 6.710^3/ul Lymphocytes # 0.510^3/ul Monocytes # 1.010^3/ul Eosinophils # 0.410^3/ul Basophils # 0.010^3/ul Nucleated Red Blood Cells # 0.010^3/ul Prothrombin Time 14.8Sec Prothrombin Time Ratio 1.2 INR International Normalized Ratio 1.16 Activated Partial Thromboplast Time 34.3Sec Sodium Level 146mmol/L Potassium Level 4.1mmol/L Chloride Level 111mmol/L Carbon Dioxide Level 27mmol/L Anion Gap 12 Blood Urea Nitrogen 18mg/dl Creatinine 1.23mg/dl Glucose Level 80mg/dl Calcium Level 8.9mg/dl Total Bilirubin 0.1mg/dl Direct Bilirubin 0.00mg/dl Indirect Bilirubin 0.1mg/dl Aspartate Amino Transf (AST/SGOT) 19IU/L Alanine Aminotransferase (ALT/SGPT) 27IU/L Alkaline Phosphatase 79IU/L Troponin I < 0.012ng/ml B-Type Natriuretic Peptide 1760PG/ML Total Protein 6.2g/dl Albumin 3.5g/dl Globulin 2.70g/dl Albumin/Globulin Ratio 1.29 Current Medications Medications (Trade) Dose Ordered Sig/Mare Route PRN Reason Start Time Stop Time Status Last Admin Dose Admin Albuterol (Proventil 0.5% (Neb)) 10 mg ONCE STAT INH 01/06/17 06:27 01/06/17 06:31 DC 01/06/17 07:36 Methylprednisolone Sodium Succinate (Solu-Medrol) 125 mg ONCE STAT IV 01/06/17 06:27 01/06/17 06:31 DC 01/06/17 06:55 Procedures/MDM EKG: Rate/Rhythm: Normal Sinus Rhythm,NL intervals QRS, ST, QT: NORMAL [place], QRS, QT] Impression: NORMAL EKG PROCEDURE: XR Chest. CLINICAL INDICATION: Chest pain TECHNIQUE: Single frontal chest x-ray. COMPARISON: 12/30/2016 FINDINGS: No acute infiltrate, pleural effusion or pneumothorax is identified. Cardiomediastinal silhouette is within normal limits. The patient is status post sternotomy. Right-sided PICC line remains in place. Thoracolumbar spinal rods are again noted. The osseous structures are otherwise unremarkable IMPRESSION: 1. No evidence of acute cardiopulmonary process. 2. Right-sided PICC line remains in place. RPTAT: PP .Prosper Ivy MD, MD Date Time Electronically viewed and signed by .Prosper Ivy MD, MD on 01/06/2017 07: 54 .R/ CC: ANA MARIA MORALES DO Patient's symptoms are concerning for cardiac cause will require inpatient workup and continuous monitoring. Further w/u for ischemia, arrhythmia, PE or dissection will be deferred to the inpatient team. Accepting Care Team: Current data and ongoing care discussed. Time: Time of admission Primary Provider: [XOXOXO] Consulting: [XOXOXO] Outstanding Data: none Departure Diagnosis: Primary Impression: Chest pain Qualified Code: R07.9 - Chest pain, unspecified type Condition: Stable ANA MARIA MORALES DO Jan 06, 2017 08:59
[2017-01-06] MEDS ORDERED: ONDANSETRON 4 MG INJ IV PRN (09:00)
[2017-01-06] MEDS ORDERED: ACETAMINOPHEN 325 MG TAB PO PRN ×2 (09:00→10:00)
[2017-01-06] MEDS ORDERED: LEVO100T87 PO (09:06)
[2017-01-06] MEDS ORDERED: LORA10TA3 PO (09:07)
[2017-01-06] MEDS ORDERED: MECL12.574 PO (09:10)
[2017-01-06] MEDS ORDERED: METAM PO (09:10)
[2017-01-06] MEDS ORDERED: METH20TA PO (09:11)
[2017-01-06] MEDS ORDERED: DUR100 TD (09:15)
[2017-01-06] MEDS ORDERED: TIOT18CA INHALATION (09:15)
[2017-01-06] MEDS ORDERED: LEVO500T72 PO (09:16)
[2017-01-06] MEDS ORDERED: MONT10TA24 PO (09:16)
[2017-01-06] MEDS ORDERED: SIMV10TA PO (09:17)
[2017-01-06] MEDS ORDERED: MECLIZINE 12.5 MG TAB PO PRN (10:00)
--- NOTE | 2017-01-06 10:19 | HP ---
DATE OF ADMISSION: 01/06/2017 CHIEF COMPLAINT: Chest pain. HISTORY OF PRESENT ILLNESS: This is a 76-year-old female well known to me with a past medical histo ry of chronic diastolic heart failure, history of hypertension, coronary artery disease, dyslipidemi a, COPD, oxygen, history of hypothyroidism, history of deep venous thrombosis, pulmonary embolism st atus post IVC filter, history of recurrent cellulitis, cognitive decline, chronic pain syndrome who initially was admitted to [facility] on 12/30/2016 for evaluation of left elbow ex posed hardware. The patient was seen by Dr. Bagley, underwent surgical removal of exposed hardware, wa s stabilized and transferred back to skilled nurse facility. The patient now presents to [facility] with complaints of chest pain, cough. Upon arrival to the emergency room, the pa chang was also noted to have abdominal discomfort. The patient had a chest x-ray which showed no ac flavio findings. Laboratory data was drawn, which showed a normal white count and a normal troponin. The patient was given nebulizer therapy in the emergency room and Solu-Medrol. Upon my evaluation of the patient at this time, the patient in no distress. Denies any recent episo dave of hemoptysis, hematemesis or hematochezia. PAST MEDICAL HISTORY: As stated above, history of diastolic heart failure, COPD, dyslipidemia, macrina nary artery disease, hypothyroidism, chronic pain syndrome, DVT, PE. PAST SURGICAL HISTORY: Multiple arthroplasties, back surgeries and bladder surgery. FAMILY HISTORY: Noncontributory. SOCIAL HISTORY: Does not drink, smoke or do drugs. MEDICATIONS: Patient medications have been reviewed and reconciled. REVIEW OF SYSTEMS: A 14-point review of systems was conducted. Pertinent positives in HPI, otherwi se negative. PHYSICAL EXAMINATION: VITAL SIGNS: Blood pressure 130/76, respiration 12, pulse 72, temperature 98.6. HEENT: Head is normocephalic. Pupils are reactive to light. NECK: Supple. HEART: Regular rate. LUNGS: Show diminished breath sounds at base, otherwise clear. ABDOMEN: Soft, nontender to palpation. Positive hernia, reducible, mild tenderness to palpation. EXTREMITIES: Negative for clubbing, cyanosis. Trace edema. DERMATOLOGIC: No rashes. MUSCULOSKELETAL: No joint effusions. NEUROLOGIC: No focal deficits. LABORATORY DATA: Shows a sodium of 146, potassium 4.1, chloride 112, BUN 18, creatinine 1.23. Whit e count 8.8, hemoglobin 9.3, hematocrit 30.7, platelet count 212. ASSESSMENT AND PLAN: This is a 76-year-old female who presents with: 1. Chest pain, etiology is likely noncardiac, possibly from abdominal hernia versus pleuritic. The patient, however, will be admitted to rule out acute coronary syndrome. Will check serial troponin s. Will monitor on telemetry. Place a cardiology consultation with Dr. Cole for evaluation and m onitor closely. 2. Abdominal hernia. The patient's hernia is reducible, mildly tender. Will place a general surgi magnolia consult for evaluation. 3. History of coronary artery disease. Continue current treatment plan medical management. 4. History of diastolic heart failure. The patient appears euvolemic. Continue current medical ma nagement. 5. Nonoliguric acute kidney injury. Etiology is secondary to hemodynamics. Will continue to monit or. Will check UA with microanalysis, check urine electrolytes. 6. History of polyneuropathy. Continue Neurontin. 7. Chronic pain syndrome. Continue current pain regimen of Fentanyl and Dilaudid. 8. Depression. Continue Wellbutrin. 9. History of cognitive decline. Continue to observe. 10. Chronic obstructive pulmonary disease exacerbation. Continue current medical management, nebul izers, prednisone, Levaquin. 11. Dyslipidemia. Continue statin therapy. 12. Hypothyroidism. Continue Synthroid. 13. Anemia. We will monitor hemoglobin and hematocrit levels. 14. History of deep venous thrombosis and pulmonary embolism. The patient is status post IVC filte r, will resume Xarelto. 15. Gastrointestinal and deep venous thrombosis prophylaxis. Continue proton pump inhibitor and Xa relto. 16. History of cellulitis, clinically improved. 17. Status post left humeral hardware removal. 18. Debility. Place a PT, OT. 19. Hypernatremia. Will encourage free water intake. Please note I spent up to 25 minutes of face to face time with this patient, discussing code status. The patient is FULL CODE. Dictated By: VALE DUKE/SOFIE Conf#: [id number] DID#: [id number]
[2017-01-06 11:56] VITALS: TEMP 98.9
[2017-01-06 13:06] VITALS: Ht 152.4 cm; Wt 75.0 kg
--- NOTE | 2017-01-06 13:29 | CONS ---
DATE OF ADMISSION: 01/06/2017 DATE OF CONSULTATION: TYPE OF CONSULTATION: Surgical. REASON FOR CONSULTATION: Abdominal wall hernia. HISTORY OF PRESENT ILLNESS: The patient is a 76-year-old female who was admitted because of chest p ain. She has comorbid condition of congestive heart failure, hypertension, coronary artery disease and COPD. She also has IVC filter. She was admitted for evaluation of abdominal pain. She was not ed to have an epigastric hernia which is soft and reducible; however, surgical consultation was requ ested was requested in regards to any further recommendations. She has no symptoms referable to thi s hernia. PAST MEDICAL HISTORY: As noted above includes multiple extremity and back surgery as well as bladde r surgery. MEDICATIONS: Outlined in the chart. ALLERGIES: NONE. REVIEW OF SYSTEMS: HEAD, EARS, EYES, NOSE AND THROAT: Unremarkable. PULMONARY: History of diastolic heart failure and COPD. CARDIAC: History of coronary artery disease, pulmonary embolism and DVT. ABDOMEN: History of bladder surgery. EXTREMITIES: Multiple arthroplasties. PHYSICAL EXAMINATION: GENERAL: The patient is an alert, oriented 76-year-old non-[place]an speaking female in no acute dist ress. HEAD, EARS, EYES, NOSE, THROAT: Within normal limits. LUNGS: Clear. HEART: Regular rhythm. ABDOMEN: Soft, nontender. There is an epigastric area just under the xiphoid. It is soft and redu cible. There are no abdominal masses. EXTREMITIES: Unremarkable. LABORATORY DATA: Patient's hematocrit is 30 with a white count of 8800 without the left shift. BUN , glucose, electrolytes unremarkable. INR is 1.16. IMPRESSION: This patient's abdominal wall hernia is chronic and soft and reducible. There are no s urgical recommendations at this time. Patient can continue to be treated as necessary medically. I will be happy to see the patient again p.r.n. your request. Dictated By: RHIANNON GONZALEZ/SOFIE Conf#: [id number] DID#: [id number] CC: VALE GONZALEZ DO;*EndCC*
[2017-01-06] MEDS: GABAPENTIN 400 MG CAP PO SCH ×2 (14:46→21:13)
[2017-01-06 15:43] VITALS: BP 107/45; RESP 18
[2017-01-06 16:19] VITALS: PULSE 71
[2017-01-06] MEDS: RIVAROXABAN 20 MG TABLET PO SCH (17:33)
--- NOTE | 2017-01-06 18:52 | CONS ---
DATE OF ADMISSION: 01/06/2017 DATE OF CONSULTATION: 01/06/2017 REFERRING PHYSICIAN: Dr. Pearce. REASON FOR CONSULTATION: Chest pain. CHIEF COMPLAINT: Left elbow pain. HISTORY OF PRESENT ILLNESS: Thank you for this referral. History obtained from the patient who is a poor historian, extensive review of the chart, discussion with Dr. Pearce and staff. The patient also is known to me from previous admission to the hospital recently. This is a 76-year-old female with history of COPD, possibly diastolic dysfunction, history of PE in the past, status post IVC fi lter placement, who has had a recent elbow surgery. The patient came to emergency room. Per her re port to me, she came in mostly because she was having left elbow pain, but also she was complaining of left-sided chest pain. She could not describe it well. It appeared to be sharp left-sided, she points to focal area over the ____ heart, which appeared to be very tender to touch. ____ the chest pain has resolved, but she does complain of left elbow pain. PAST MEDICAL HISTORY: History of reported diastolic dysfunction, ejection fraction has been normal, history of chronic obstructive pulmonary disease, dyslipidemia. She denies any history of coronary artery disease. History of hypothyroidism, history of PE and DVT with IVC filter placement. Histo ry of elbow fracture status post surgery. Hardware was exposed and had to have a redo surgery done last week. PAST SURGICAL HISTORY: As above, has also back surgery, bladder surgery. FAMILY HISTORY: No reported ____. SOCIAL HISTORY: The patient does not smoke or drink. MEDICATIONS: Per medication reconciliation, personally reviewed. REVIEW OF SYSTEMS: As above mentioned, she denied all other. Denies any fall recently. PHYSICAL EXAMINATION: VITAL SIGNS: Temperature 98.9, heart rate of 71, blood pressure of 107/45, respiration rate of 18, saturating 94%. HEENT: Normocephalic, atraumatic. Thin female. Pupils are equal. CARDIOVASCULAR: Regular rate and rhythm with grade 1 systolic murmur. PULMONARY: No wheezes heard. No rhonchi. CHEST: Positive for residual chest wall tenderness. It is very tender to touch on the left side. EXTREMITIES: Left upper extremity is in cast. GASTROINTESTINAL: Soft, nontender. No rebound, no guarding. EXTREMITIES: With no significant lower extremity edema. NEUROLOGIC: Awake and alert. Responds ____ multiple ecchymoses. Otherwise stable. PSYCHIATRIC: Appears to be calm and pleasant. LABORATORY DATA: WBC of 8.8, hemoglobin 9.3, platelets 212. Sodium 146, potassium 4.1, BUN of 12, creatinine 1.23, glucose of 80. Troponin less than 0.012. ProBNP of 1760. EKG is normal sinus rhy thm. Nonspecific T-wave abnormality. Review of the old chart showed the patient's echocardiogram d one on 12/31/2016, which was personally reviewed, showed ejection fraction of 65%. ASSESSMENT AND PLAN: 1. Chest pain appeared to be reproducible, most likely musculoskeletal or costochondritis and not a nginal. Will rule out myocardial infarction. 2. History of abdominal hernia. Follow up with the surgery. 3. Questionable history of coronary artery repair recorded; however, patient denying ____. 4. ____ chronic obstructive pulmonary disease. 5. History of renal insufficiency. 6. Status post left wrist and elbow surgery. 7. Thyroid disorder. 8. History of pulmonary embolism and deep vein thrombosis, inferior vena cava filter placement. 9. Electrolyte abnormality and hypernatremia. RECOMMENDATIONS: Serial cardiac enzymes will be obtained. We will continue with the low dose of be ta kathryn as tolerated. Thyroid supplement will be continued as well. Antibiotic as per internal medicine. Rule out myocardial serial cardiac enzymes, monitor on telemetry. Thank you for this referral. We will continue to follow along with you. Dictated By: FARHAN SCHULZ MD AV/SOFIE Conf#: [id number] DID#: [id number] CC: VALE PEARCE DO;*EndCC*
[2017-01-06 19:59] VITALS: BP 110/50; RESP 18
[2017-01-06] MEDS ORDERED: FLUTICASONE PROPIONATE INHALATION SCH (21:00)
[2017-01-06] MEDS ORDERED: PSYLLIUM 28% PACKET PO SCH (21:00)
[2017-01-06 21:07] VITALS: PULSE 80
[2017-01-06] MEDS: MOMETASONE 0.24 GM INHALER INH SCH (21:12)
[2017-01-06] MEDS: MONTELUKAST 10 MG TAB PO SCH (21:13)
[2017-01-06] MEDS: BACLOFEN 10 MG TAB PO SCH (21:13)
[2017-01-06] MEDS: ATORVASTATIN 10 MG TAB PO SCH (21:13)
[2017-01-06] MEDS: METHYLPHENIDATE 20 MG TAB PO SCH (21:21)
[2017-01-06] MEDS: HYDROmorphONE 2 MG TAB PO PRN (22:31)
[2017-01-06] MEDS: PSYLLIUM (SUGAR FREE) PACKET PO SCH (23:00)
[2017-01-06 23:47] VITALS: BP 99/58; RESP 19
[2017-01-07] VITALS (12 sets, daily range): BP systolic 91–127; BP diastolic 47–66; PULSE 69–80; RESP 17–18
[2017-01-07] MEDS: LEVOFLOXACIN 500 MG TAB PO SCH (05:08)
[2017-01-07] MEDS: HYDROmorphONE 2 MG TAB PO PRN (05:08)
[2017-01-07] MEDS: LEVOTHYROXINE 100 MCG TAB PO SCH (06:13)
[2017-01-07 07:05] LABS: ADD SCAN DIFF NO
[2017-01-07 07:12] LABS: ABNORMAL IP MESSAGE 1; EOSINOPHILS # 0.1 10^3/ul (0.0-0.5); EOSINOPHILS % 0.8 % (0.0-7.0); HEMATOCRIT 27.8 % (37.0-47.0); HEMOGLOBIN 8.4 g/dl (12.0-16.0); LYMPHOCYTES # 0.5 10^3/ul (0.8-2.9); LYMPHOCYTES % 8.1 % (15.0-51.0); MEAN CORPUSCULAR HEMOGLOBIN 27.6 pg (29.0-33.0); MEAN CORPUSCULAR HGB CONC 30.2 g/dl (32.0-37.0); MEAN CORPUSCULAR VOLUME 91.4 fl (82.0-101.0); MEAN PLATELET VOLUME 10.5 fl (7.4-10.4); MONOCYTE # 0.8 10^3/ul (0.3-0.9); MONOCYTES % 13.2 % (0.0-11.0); NEUTROPHIL # 4.9 10^3/ul (1.6-7.5); NEUTROPHILS % 77.4 % (39.0-77.0); PLATELET COUNT 213 10^3/UL (140-415); RED BLOOD COUNT 3.04 10^6/ul (4.20-5.40); RED CELL DISTRIBUTION WIDTH 18.5 % (11.5-14.5); WHITE BLOOD COUNT 6.3 10^3/ul (4.8-10.8)
[2017-01-07 07:42] LABS: CALCIUM 8.5 mg/dl (8.4-10.2); CREATININE 1.11 mg/dl (0.44-1.00); MAGNESIUM 2.3 mg/dl (1.7-2.5); PHOSPHORUS 4.2 mg/dl (2.5-4.9); POTASSIUM 3.8 mmol/L (3.5-5.1)
[2017-01-07] MEDS: METOPROLOL 25 MG TAB PO SCH (08:41)
[2017-01-07] MEDS: predniSONE 20 MG TAB PO SCH (09:23)
[2017-01-07] MEDS: DULOXETINE 30 MG CAP DR PO SCH (09:23)
[2017-01-07] MEDS: BUPROPION (XL) 150 MG TAB PO SCH (09:24)
[2017-01-07] MEDS: SPIRONOLACTONE 25 MG TAB PO SCH (09:24)
[2017-01-07] MEDS: PANTOPRAZOLE (EC) 40 MG TAB PO SCH (09:24)
[2017-01-07] MEDS: GABAPENTIN 400 MG CAP PO SCH ×3 (09:24→21:53)
[2017-01-07] MEDS: SENNA TAB PO SCH (09:24)
[2017-01-07] MEDS: BACLOFEN 10 MG TAB PO SCH ×2 (09:24→21:53)
[2017-01-07] MEDS: DOCUSATE SODIUM 100 MG CAP PO SCH (09:24)
[2017-01-07] MEDS: TIOTROPIUM 18 MCG CAPSULE INHA DEV INH SCH (09:24)
[2017-01-07] MEDS: PSYLLIUM (SUGAR FREE) PACKET PO SCH ×2 (09:24→21:53)
[2017-01-07] MEDS: CALCIUM/VITAMIN D (500/200) TAB PO SCH (09:24)
[2017-01-07] MEDS: LORATADINE 10 MG TAB PO SCH (09:24)
[2017-01-07] MEDS: MOMETASONE 0.24 GM INHALER INH SCH ×2 (09:25→21:54)
[2017-01-07] MEDS: METHYLPHENIDATE 20 MG TAB PO SCH ×2 (09:29→21:53)
--- NOTE | 2017-01-07 10:44 | PN ---
DATE: 01/07/2017 SUBJECTIVE: The patient is stable, no acute events overnight. No fevers, chills, nausea, vomiting. No shortness of breath. OBJECTIVE: VITAL SIGNS: Blood pressure is 91/47, respirations 18, pulse 69, temperature 97.6. I's and O's were reviewed. HEENT: Head is normocephalic. NECK: Supple. HEART: Regular rate. LUNGS: Show diminished breath sounds at the bases. ABDOMEN: Soft, nontender to palpation. No rebound or guarding. The patient has a hernia that is reducible. EXTREMITIES: Negative for clubbing, cyanosis. No edema. DERMATOLOGIC: No rashes. MUSCULOSKELETAL: No joint effusions. NEUROLOGIC: No change in exam. LABORATORY DATA: Shows sodium 144, potassium 3.8, BUN 18, creatinine 1.11. White count 6.3, hemoglobin 8.4, hematocrit 27.8, platelet count is 213. ASSESSMENT AND PLAN: 1. Chest pain. Etiology is likely noncardiac, possible from abdominal hernia. The patient's chest pain has resolved. We will continue to monitor, being ruled out for acute coronary artery syndrome. Follow up with Dr. Cole. 2. Abdominal hernia. The patient's hernia is reducible, mildly tender. Appreciate general surgery's evaluation. No plan for surgery at this time. 3. History of coronary artery disease. Continue medical management. 4. History of diastolic heart failure. The patient appears euvolemic. Continue to monitor. 5. Nonoliguric acute kidney injury. Etiology is secondary to hemodynamics. Renal function is improved. Continue current treatment plan, supportive care, renally dose all medicines. 6. Polyneuropathy. Continue Neurontin. 7. Chronic pain syndrome. Continue fentanyl and Dilaudid. 8. History of depression. Continue Wellbutrin. 9. Chronic obstructive pulmonary disease exacerbation. Continue current medical management, nebulizers, prednisone and Levaquin. 10. Dyslipidemia. Continue statin therapy. 11. Hypothyroidism. Continue Synthroid. 12. Anemia. Continue to monitor hemoglobin and hematocrit levels. 13. History of deep venous thrombosis and pulmonary embolism, status post IVC filter. We will resume Xarelto. 14. History of cellulitis, clinically improved. The patient is completing antibiotic course. 15. Debility. Continue PT, OT. 16. Status post left humeral hardware removal. 17. Hypernatremia, improved. Dictated By: VALE DUKE/SOFIE Conf#: [id number] DID#: [id number]
[2017-01-07 11:06] LABS: CK-MB 1.38 ng/ml (0.0-2.4)
--- NOTE | 2017-01-07 14:09 | PN ---
DATE: 01/07/2017 SUBJECTIVE: No acute changes. The patient is alert, looks comfortable, no fevers. Vital signs sta ble. LABORATORY DATA: WBC today 6.3, neutrophils 77.4. BUN 18, creatinine 1.1. MICROBIOLOGY: Nares swab pending. ANTIMICROBIALS: The patient is on oral Levaquin. PHYSICAL EXAMINATION: GENERAL: This is a fragile, chronically ill-appearing, elderly woman who is awake, in no distress. HEENT: Head atraumatic, normocephalic. Sclerae anicteric. Buccal mucosa dry. NECK: Supple. CHEST: Rise symmetrical. Breath sounds diminished to bases. HEART: S1, S2. ABDOMEN: Soft, bowel sounds present. EXTREMITIES: Without cyanosis. Left elbow dressing intact. ASSESSMENT: 1. History of left elbow hardware removal, remains on oral Levaquin, status post vancomycin. 2. Abdominal hernia, no need for surgical intervention as per surgical note. 3. Coronary artery disease. 4. Chronic obstructive pulmonary disease. 5. History of deep venous thrombosis and pulmonary emboli, status post inferior vena cava filter. PLAN: The patient remains stable on appropriate treatment. Continue present care. Dictated By: ROWENA BELCHER TENTS ASSEMBLER for ADIEL WALTER/SOFIE Conf#: [id number] DID#: [id number]
[2017-01-07] MEDS: RIVAROXABAN 20 MG TABLET PO SCH (17:20)
[2017-01-07] MEDS: ATORVASTATIN 10 MG TAB PO SCH (21:53)
[2017-01-07] MEDS: MONTELUKAST 10 MG TAB PO SCH (21:53)
[2017-01-08] VITALS (9 sets, daily range): BP systolic 109–115; BP diastolic 53–60; PULSE 63–84; RESP 17–20
[2017-01-08] MEDS: LEVOFLOXACIN 500 MG TAB PO SCH (06:20)
[2017-01-08] MEDS: LEVOTHYROXINE 100 MCG TAB PO SCH ×2 (06:20→09:13)
--- NOTE | 2017-01-08 06:49 | PN ---
DATE: 01/07/2017 CARDIOLOGY FOLLOWUP PROGRESS NOTE SUBJECTIVE: Discussed with the staff. Rhythm strip was reviewed. The patient denies any more ches t pain or pressure, denies any palpitation to me. She still has left arm pain, but improved. Denie s wheezing or shortness of breath or cough to me. MEDICATIONS: Reviewed. PHYSICAL EXAMINATION: VITAL SIGNS: Temperature 98.6, heart rate of 80, blood pressure 104/60, respiration rate of 17, sat urating 100%. HEENT: Normocephalic, atraumatic. Thin female. Pupils are equal. CARDIOVASCULAR: Regular rhythm with grade 1 systolic murmur. PULMONARY: With no wheezes heard now. No rhonchi. GASTROINTESTINAL: Soft, nontender. CHEST: Positive reproducible chest wall tenderness. EXTREMITIES: Left upper extremity in dressing. NEUROLOGIC: Awake and alert. PSYCHIATRIC: Appeared to be calm. LABORATORY: WBC of 6.3, hemoglobin 8.4, platelets of 213. Sodium 144, potassium 3.8, BUN of 18, cr eatinine 1.11, glucose of 91. ____ of 51, MB fraction of 1.38. ASSESSMENT AND PLAN: 1. Chest pain, appeared to be nonanginal, has improved now. 2. History of deep venous thrombosis and pulmonary embolism. 3. Hypothyroidism. 4. Anemia. 5. Hypertension, currently stable. 6. Status post elbow surgery. 7. Reported history of diastolic heart failure, currently appears to be stable and euvolemic. RECOMMENDATIONS: Anticoagulation with Xarelto to be resumed once no signs of bleeding. ____ antico agulation that has been resumed, there are no signs of bleeding. Will continue to monitor on teleme try. Dictated By: FARHAN SCHULZ MD AV/SOFIE Conf#: [id number] DID#: [id number] CC: VALE GONZALEZ DO;*EndCC*
[2017-01-08 06:53] LABS: ADD SCAN DIFF NO
[2017-01-08 06:55] LABS: BASOPHILS % 0.3 % (0.0-2.0); EOSINOPHILS # 0.1 10^3/ul (0.0-0.5); EOSINOPHILS % 0.7 % (0.0-7.0); LYMPHOCYTES # 0.9 10^3/ul (0.8-2.9); LYMPHOCYTES % 11.2 % (15.0-51.0); MEAN CORPUSCULAR HEMOGLOBIN 28.1 pg (29.0-33.0); MEAN CORPUSCULAR VOLUME 90.6 fl (82.0-101.0); MONOCYTES % 12.6 % (0.0-11.0); NEUTROPHIL # 5.8 10^3/ul (1.6-7.5); NEUTROPHILS % 74.9 % (39.0-77.0); PLATELET COUNT 236 10^3/UL (140-415); RED CELL DISTRIBUTION WIDTH 18.6 % (11.5-14.5); WHITE BLOOD COUNT 7.7 10^3/ul (4.8-10.8)
[2017-01-08] MEDS: TIOTROPIUM 18 MCG CAPSULE INHA DEV INH SCH (09:00)
[2017-01-08] MEDS: DULOXETINE 30 MG CAP DR PO SCH (09:12)
[2017-01-08] MEDS: PSYLLIUM (SUGAR FREE) PACKET PO SCH (09:12)
[2017-01-08] MEDS: MOMETASONE 0.24 GM INHALER INH SCH (09:12)
[2017-01-08] MEDS: GABAPENTIN 400 MG CAP PO SCH ×2 (09:12→13:25)
[2017-01-08] MEDS: CALCIUM/VITAMIN D (500/200) TAB PO SCH (09:12)
[2017-01-08] MEDS: DOCUSATE SODIUM 100 MG CAP PO SCH (09:12)
[2017-01-08] MEDS: PANTOPRAZOLE (EC) 40 MG TAB PO SCH (09:13)
[2017-01-08] MEDS: BACLOFEN 10 MG TAB PO SCH (09:13)
[2017-01-08] MEDS: LORATADINE 10 MG TAB PO SCH (09:13)
[2017-01-08] MEDS: BUPROPION (XL) 150 MG TAB PO SCH (09:13)
[2017-01-08] MEDS: SPIRONOLACTONE 25 MG TAB PO SCH (09:13)
[2017-01-08] MEDS: SENNA TAB PO SCH (09:13)
[2017-01-08] MEDS: METOPROLOL 25 MG TAB PO SCH (09:14)
--- NOTE | 2017-01-08 09:56 | PN ---
DATE: 01/08/2017 CARDIOLOGY FOLLOWUP PROGRESS NOTE SUBJECTIVE: Discussed with the staff. Rhythm strip reviewed. The patient with no chest pain or pr essure. Still complains of left elbow pain. Has mild chest wall tenderness when she breathes or co ughs. MEDICATIONS: Reviewed. PHYSICAL EXAMINATION: VITAL SIGNS: Temperature 98.1, heart rate of 63, blood pressure 109/63, respiratory rate of 17, sat urating 98%. HEENT: Normocephalic, atraumatic. GENERAL: Thin female in no acute distress. CARDIOVASCULAR: Regular rate and rhythm, systolic murmur. PULMONARY: With mild rhonchi, no wheezes. GASTROINTESTINAL: Soft, nontender, not distended. EXTREMITIES: With mild lower extremity edema, but left lower extremity in dressing. NEUROLOGIC: Awake and alert. PSYCHIATRIC: Appears to be calm and pleasant. LABORATORY: Shows WBC of 7.7, hemoglobin 9, platelets of 234. ASSESSMENT AND PLAN: 1. Non-anginal chest pain, has resolved now. 2. History of deep venous thrombosis and pulmonary embolism in the past ____. 3. Thyroid disorder. 4. Anemia. 5. Status post left elbow fracture and surgery. 6. History of diastolic dysfunction, currently appears to be rate controlled. RECOMMENDATIONS: I will continue the beta kathryn as tolerated. Pulmonary care as per pulmonologis t will be continued. I will change her Xarelto from 20 to 15 mg given her renal dysfunction. Dena hutchison with orthopedic surgery recommendations. Dictated By: FARHAN SHULTZ/SOFIE Conf#: [id number] DID#: [id number] CC: VALE GONZALEZ DO;*EndCC*
[2017-01-08] MEDS: METHYLPHENIDATE 20 MG TAB PO SCH (10:15)
[2017-01-08] MEDS: predniSONE 20 MG TAB PO SCH (10:15)
--- NOTE | 2017-01-08 13:51 | DS ---
DATE OF ADMISSION: 01/06/2017 DATE OF DISCHARGE: HOSPITAL COURSE: This is a 76-year-old female with a past medical history of chronic diastolic hear t failure, history of hypertension, coronary artery disease, dyslipidemia, COPD, hypothyroidism, DVT , PE, status post IVC filter, history of recurrent cellulitis, cognitive decline, chronic pain syndr ome who was admitted to [facility] on 01/06/2017 for chest pain. The patient in [facility] emergency room was noted to be also have an abdominal hernia and was subsequently admitted to [facility] for evaluation. In terms of the patient's chest pain, etiology was noncardiac, likely panic attack versus abdominal hernia versus pleuritic. The patient was seen by white shoe ragger, Dr. Cole, was ruled out for acute coronary syndrome. The patient had no recurrent episodes of chest pain. In terms of the patient's abdominal hernia. She was seen by general surgeon, Dr. Davis. No plans fo r surgical intervention as the hernia is reducible and tenderness resolved. The patient also had no noliguric acute kidney injury on admission which was due to hemodynamics that improved with supporti ve care. The patient's other chronic problems included diastolic heart failure, polyneuropathy, chr onic pain syndrome, hypothyroidism, dyslipidemia, and anemia were stable during the hospital course. The patient did have a COPD exacerbation on admission as well, and was clinically improved with a course of prednisone and antibiotic therapy. She was also seen by infectious disease, avtar Jefferson or her recent cellulitis and a recommendation was made to continue her on her current dose of antibi otics with Levaquin. Currently, at this time, the patient is stable, in no acute distress. She denise l be discharged back to her retirement facility for continued care. FINAL DIAGNOSES: 1. Chest pain, noncardiac, resolved. 2. Abdominal hernia. 3. Coronary artery disease. 4. Diastolic heart failure. 5. Nonoliguric acute kidney injury. 6. Polyneuropathy. 7. Chronic pain syndrome. 8. Depression. 9. Cognitive decline. 10. Chronic obstructive pulmonary disease exacerbation. 11. Dyslipidemia. 12. Hypothyroidism. 13. Anemia. 14. History of deep venous thrombosis and pulmonary embolism. 15. History of cellulitis. 16. Status post left humeral hardware removal. 17. Hypernatremia. FINAL MEDICATIONS: See reconciliation list. CONDITION ON DISCHARGE: Please note at the time of discharge, the patient is stable, in no acute di stress. Dictated By: VALE DUKE/SOFIE Conf#: [id number] DID#: [id number]
--- NOTE | 2017-01-08 14:25 | CONS ---
Date/Time of Note Date/Time of Note DATE: 01/08/17 TIME: 14:24 Assessment/Plan Assessment/Plan Chief Complaint/Hosp Course SUBJECTIVE: No acute changes. The patient is sleeping, looks comfortable, no fevers. Vital signs stable. ANTIMICROBIALS: The patient is on oral Levaquin. PHYSICAL EXAMINATION: GENERAL: This is a fragile, chronically ill-appearing, elderly woman who is in no distress. HEENT: Head atraumatic, normocephalic. Sclerae anicteric. Buccal mucosa dry. NECK: Supple. CHEST: Rise symmetrical. Breath sounds diminished to bases. HEART: S1, S2. ABDOMEN: Soft, bowel sounds present. EXTREMITIES: Without cyanosis. Left elbow dressing intact. ASSESSMENT: 1. History of left elbow hardware removal, remains on oral Levaquin, status post vancomycin. 2. Abdominal hernia, no need for surgical intervention as per surgical note. 3. Coronary artery disease. 4. Chronic obstructive pulmonary disease. 5. History of deep venous thrombosis and pulmonary emboli, status post inferior vena cava filter. PLAN: The patient remains stable. Continue present care, abx staff. Problems: Consultation Date/Type/Reason Admit Date/Time Jan 06, 2017 at 08:56 Initial Consult Date Type of Consultation: id Referring Provider: VALE GONZALEZ DO Exam/Review of Systems Vital Signs Vitals Vital Signs Date Time Temp Pulse Resp B/P Pulse Ox O2 Delivery O2 Flow Rate FiO2 01/08/17 12:16 84 01/08/17 11:31 98.2 18 115/53 97 01/08/17 08:00 Nasal Cannula 3.0 Intake and Output 01/07/17 01/07/17 01/08/17 15:00 23:00 07:00 Intake Total 800 ml 1200 ml 1000 ml Balance 800 ml 1200 ml 1000 ml Results Result Diagram: 01/08/17 0555 01/07/17 0620 Results 24 hrs Laboratory Tests Test 01/08/17 05:55 White Blood Count 7.7 # Red Blood Count 3.20 L Hemoglobin 9.0 L Hematocrit 29.0 L Mean Corpuscular Volume 90.6 Mean Corpuscular Hemoglobin 28.1 L Mean Corpuscular Hemoglobin Concent 31.0 L Red Cell Distribution Width 18.6 H Platelet Count 236 Mean Platelet Volume 10.0 Neutrophils % 74.9 Lymphocytes % 11.2 L Monocytes % 12.6 H Eosinophils % 0.7 Basophils % 0.3 Nucleated Red Blood Cells % 0.0 Neutrophils # 5.8 Lymphocytes # 0.9 Monocytes # 1.0 H Eosinophils # 0.1 Basophils # 0.0 Nucleated Red Blood Cells # 0.0 Medications Medications Current Medications Acetaminophen (Tylenol Tab) 650 mg Q4H PRN PO PAIN AND OR ELEVATED TEMP; Start 01/06/17 at 10:00 Baclofen (Lioresal) 20 mg BID PO Last administered on 01/08/17 09:13; Admin Dose 20 MG; Start 01/06/17 at 21:00 Bupropion HCl (Wellbutrin Xl) 300 mg DAILY PO Last administered on 01/08/17 09 :13; Admin Dose 300 MG; Start 01/07/17 at 09:00 Docusate Sodium (Colace) 100 mg DAILY PO Last administered on 01/08/17 09:12; Admin Dose 100 MG; Start 01/07/17 at 09:00 Duloxetine HCl (Cymbalta) 60 mg DAILY PO Last administered on 01/08/17 09:12; Admin Dose 60 MG; Start 01/07/17 at 09:00 Fentanyl (Duragesic 100 Mcg/Hr Patch) 1 patch Q72H TRANSDERM ; Start 01/09/17 at 09:00 Gabapentin (Neurontin) 800 mg TID PO Last administered on 01/08/17 13:25; Admin Dose 800 MG; Start 01/06/17 at 13:00 Hydromorphone HCl (Dilaudid) 2 mg Q4H PRN PO PAIN Last administered on 05:08; Admin Dose 2 MG; Start 01/06/17 at 10:00 Levofloxacin (Levaquin) 500 mg DAILY@06 PO Last administered on 01/08/17 06:20 ; Admin Dose 500 MG; Start 01/07/17 at 06:00 Loratadine (Claritin) 10 mg DAILY PO Last administered on 01/08/17 09:13; Admin Dose 10 MG; Start 01/07/17 at 09:00 Meclizine HCl (Antivert) 12.5 mg Q8H PRN PO DIZZINESS; Start 01/06/17 at 10:00 Methylphenidate HCl (Methylin) 20 mg BID PO Last administered on 01/08/17 10: 15; Admin Dose 20 MG; Start 01/06/17 at 21:00 Metoprolol Tartrate (Lopressor) 12.5 mg DAILY PO Last administered on 09:14; Admin Dose 12.5 MG; Start 01/07/17 at 09:00 Montelukast Sodium (Singulair) 10 mg QHS PO Last administered on 01/07/17 21: 53; Admin Dose 10 MG; Start 01/06/17 at 21:00 Pantoprazole (Protonix Tab) 40 mg DAILY PO Last administered on 01/08/17 09:13 ; Admin Dose 40 MG; Start 01/07/17 at 09:00 Senna (Senokot) 1 tab DAILY PO Last administered on 01/08/17 09:13; Admin Dose 1 TAB; Start 01/07/17 at 09:00 Spironolactone (Aldactone) 25 mg DAILY PO Last administered on 01/08/17 09:13 ; Admin Dose 25 MG; Start 01/07/17 at 09:00 Tiotropium [place] (Spiriva) 1 inh DAILY INH Last administered on 01/07/17 09: 24; Admin Dose 1 INH; Start 01/07/17 at 09:00 Calcium/Vitamin D (Oyster Shell/ Vit-D (500/200)) 1 tab DAILY PO Last administered on 01/08/17 09:12; Admin Dose 1 TAB; Start 01/07/17 at 09:00 Mometasone Furoate (Asmanex) 1 puff BID INH Last administered on 01/08/17 09: 12; Admin Dose 1 PUFF; Start 01/06/17 at 21:00 Atorvastatin Calcium (Lipitor) 10 mg DAILY@21 PO Last administered on 21:53; Admin Dose 10 MG; Start 01/06/17 at 21:00 Prednisone (Prednisone) 40 mg DAILY PO Last administered on 01/08/17 10:15; Admin Dose 40 MG; Start 01/07/17 at 09:00 Psyllium Hydrophilic Mucilloid (Metamucil (Sugar Free)) 1 pkt BID PO Last administered on 01/08/17 09:12; Admin Dose 1 PKT; Start 01/06/17 at 23:00 ROWENA BELCHER NP Jan 08, 2017 14:25
[2017-01-08] MEDS: HYDROmorphONE 2 MG TAB PO PRN (16:37)
[2017-01-08] MEDS ORDERED: RIVAROXABAN 15 MG TABLET PO SCH (17:55)
== END 2017-01-08 18:39 ==
LOC: E/R 06:02 → TEL 08:56
PROVIDERS: ADMIT Internal Medicine; ATTEND Internal Medicine
DX: R07.89 Other chest pain (principal); K43.9 Ventral hernia without obstruction or gangrene; I25.10 Atherosclerotic heart disease of native coronary artery without angina pectoris; I11.0 Hypertensive heart disease with heart failure; I50.30 Unspecified diastolic (congestive) heart failure; N17.9 Acute kidney failure, unspecified; G62.9 Polyneuropathy, unspecified; G89.4 Chronic pain syndrome; F32.9 Major depressive disorder, single episode, unspecified; R41.81 Age-related cognitive decline; J44.1 Chronic obstructive pulmonary disease with (acute) exacerbation; E78.5 Hyperlipidemia, unspecified; E03.9 Hypothyroidism, unspecified; D64.9 Anemia, unspecified; E87.0 Hyperosmolality and hypernatremia; R53.81 Other malaise; F17.200 Nicotine dependence, unspecified, uncomplicated; Z79.01 Long term (current) use of anticoagulants; Z99.81 Dependence on supplemental oxygen; Z86.718 Personal history of other venous thrombosis and embolism; Z86.711 Personal history of pulmonary embolism; Z88.0 Allergy status to penicillin; Z88.1 Allergy status to other antibiotic agents; Z88.5 Allergy status to narcotic agent; Z88.2 Allergy status to sulfonamides
CPT/HCPCS: 36415; 71010; 80048; 80053; 82550; 82553; 83735; 83880; 84100; 84484; 85025; 85610; 85730; 87081; 93005; 94644; 96374; 99285; G0378; J1170; J2930; J7512

== ENCOUNTER 2017-02-26 06:04 | Inpatient (IN) | payer MEDICARE, BC ==
[2017-02-26] VITALS (61 sets, daily range): BP systolic 74–137; BP diastolic 46–95; PULSE 65–141; RESP 14–27; Ht 157.5 cm; Wt 70.3 kg
[~2017-02-26] VITALS: Ht 157.5 cm; Wt 70.3 kg
[~2017-02-26 06:04] MED LIST changes: +ACET-2047 PO; -BUPR100T14 PO; +BUPR300T36 PO; -DESL5TAB20 PO; +DUR100 TD; -FENT-65 TD; -L-THYROXINE PO; +LEVO100T87 PO; +LEVO500T72 PO; -LIDOCAINE PATCH; +LORA10TA3 PO; -MECL12.5 PO; +MECL12.574 PO; +METH20TA PO; -METHYPHENIDATE PO; +MOME0.132 INHALATION; -RIVA20TA PO; +SIMV10TA PO; -SIMV5TAB50 PO; -SPIR100T31 PO; +SPIR25TA PO
[2017-02-26] MEDS ORDERED: LIDOCAINE 1% (MDV) 20 ML INJ ONE (06:36)
[2017-02-26] MEDS ORDERED: MIDAZOLAM 1 MG/ML 2 ML INJ ONE ×2 (06:36→06:37)
[2017-02-26] MEDS ORDERED: HEPARIN 1000 UNITS/ML 10 ML INJ ONE (06:36)
[2017-02-26] MEDS ORDERED: IODIXANOL LOCM 100 ML BTL ONE (06:37)
[2017-02-26] MEDS ORDERED: VERAPAMIL 5 MG INJ ONE (06:37)
[2017-02-26] MEDS ORDERED: IODIXANOL LOCM 50 ML BTL ONE (06:37)
[2017-02-26] MEDS ORDERED: FENTAnyl 50 MCG/ML VIAL ONE (06:37)
[2017-02-26] MEDS ORDERED: NITROGLYCERIN (IC) 100 MCG/ML INJ ONE (06:37)
[2017-02-26] MEDS ORDERED: NORepinephrine 8MG/250 ML (PMX 250 ML ONE (06:47)
--- NOTE | 2017-02-26 06:58 | ERA ---
ER Documentation Chief Complaint Date/Time DATE: 02/26/17 TIME: 06:58 Chief Complaint HPI History is obtained entirely from transferring paramedics, review of [facility] facility records and prior medical records as the patient is unable to give any history due to clinical condition. 77-year-old female with history of hypertension, coronary artery disease, chronic diastolic heart failure, dyslipidemia, COPD, hypothyroidism, DVT, pulmonary embolism post IVC filter on Xarelto and chronic pain brought to the ED via rescue ambulance for evaluation of altered mental status and possible ST segment elevation IN. Patient was found in bed this morning at the [facility] unresponsive. Paramedics were called. ECG performed at the scene revealed ST segment elevations in the inferior leads consistent with a possible ST segment elevation IN. Paramedics noticed a fentanyl patch which was removed patient was given Narcan 2 mg IM and developed jerky type movements but did not awaken and she was transported to the ED. On arrival she was placed on the gurney and found to be apneic and pulseless. No other history is available. ROS All systems reviewed and are negative except as per history of present illness. Medications Home Meds Reported Medications Simvastatin* (Zocor*) 10 Mg Tablet, 10 MG PO QHS, #30 TAB 01/06/17 Montelukast Sodium* (Montelukast Sodium*) 10 Mg Tablet, 10 MG PO QHS, #30 TAB 01/06/17 Levofloxacin* (Levaquin*) 500 Mg Tablet, 500 MG PO DAILY, TAB 01/06/17 Fentanyl Patch* (Duragesic Patch*) 100 Mcg/Hr Transdermal Patch, 1 PATCH TD Q72H , PATCH 01/06/17 Tiotropium Delight* (Spiriva*) 18 Mcg Cap.w.dev, 1 CAP INHALATION DAILY, #30 CAP 01/06/17 Methylphenidate Hcl* (Methylphenidate Hcl*) 20 Mg Tablet, 20 MG PO BID, TAB 01/06/17 Psyllium* (Metamucil*) 1 Pkt Susp, 1 PKT PO BID, PACKET 01/06/17 Meclizine Hcl* (Antivert*) 12.5 Mg Tab, 12.5 MG PO Q8H Y for DIZZINESS, #30 TAB 01/06/17 Loratadine* (Loratadine*) 10 Mg Tablet, 10 MG PO DAILY, #30 TAB 6/12/17 Levothyroxine Sodium* (Levothyroxine Sodium*) 100 Mcg Tablet, 100 MCG PO BEFORE BREAKFAST, #30 TAB 01/06/17 Bupropion Hcl* (Bupropion XL*) 300 Mg Tab.sr.24h, 300 MG PO DAILY, TAB.SA 01/06/17 Mometasone Furoate* (Asmanex*) 110 Mcg/Inh - 7 Act Aer.pow.ba, 1 PUFF INHALATION QHS, #1 INHALER 01/06/17 Spironolactone* (Aldactone*) 25 Mg Tablet, 25 MG PO DAILY, #30 TAB 01/06/17 Acetaminophen* (Acetaminophen*) 650 Mg Tablet, 650 MG PO Q4 Y for PAIN AND OR ELEVATED TEMP, #30 TAB 01/06/17 Fluticasone Propionate* (Flovent* 44) 13 Gm Aer.w.adap, 1 PUFF INHALATION BID, # 1 INHALER 07/12/15 Duloxetine Hcl* (Duloxetine Hcl*) 60 Mg Capsule.dr, 60 MG PO DAILY, #30 CAP 07/12/15 Calcium Carbonate/Vitamin D3 (Calcium + D Tablet) 1 Udtab Tablet, 1 TAB PO DAILY , TAB 07/12/15 Sennosides* (Senna*) 8.6 Mg Capsule, 1 CAP PO DAILY, CAP 07/12/15 Docusate Sodium* (Docusate Sodium*) 100 Mg Capsule, 100 MG PO DAILY, #30 CAP 07/12/15 Pantoprazole* (Pantoprazole*) 40 Mg Tablet.dr, 40 MG PO DAILY, TAB 07/12/15 Baclofen* (Baclofen*) 20 Mg Tablet, 20 MG PO BID, TAB 07/12/15 Hydromorphone Hcl* (Hydromorphone Hcl*) 2 Mg Tablet, 2 MG PO Q4H Y for PAIN, TAB 07/12/15 Gabapentin* (Gabapentin*) 800 Mg Tablet, 800 MG PO TID, TAB 07/12/15 Tiotropium Delight* (Spiriva*) 18 Mcg Cap.w.dev, 1 CAP INHALATION DAILY, #1 EA 07/12/15 Metoprolol Tartrate* (Lopressor*) 25 Mg Tab, 12.5 MG PO DAILY, #60 TAB HOLD FOR SBP<110 OR TX<60 07/12/15 Allergies Allergies: Coded Allergies: Penicillins (Unverified Allergy, Unknown, 01/06/17) Sulfa (Sulfonamide Antibiotics) (Unverified Allergy, Unknown, 01/06/17) erythromycin base (Unverified Allergy, Unknown, 01/06/17) morphine (Unverified Allergy, Unknown, 01/06/17) PMhx/Soc Reviewed in chart. As per HPI History of Surgery: Yes (Multiple arthroplasties, back surgeries and bladder surgery. IVC filter.) Anesthesia Reaction: No Hx Neurological Disorder: No Hx Respiratory Disorders: Yes (COPD, PE) Hx Cardiac Disorders: Yes (HTN, HYPERLIPIDEMIA,) Hx Psychiatric Problems: Yes (DEPRESSION) Hx Miscellaneous Medical Probl: No Hx Alcohol Use: No Hx Substance Use: No Hx Tobacco Use: Yes FmHx Unknown Physical Exam Vitals Vital Signs Date Time Temp Pulse Resp B/P Pulse Ox O2 Delivery O2 Flow Rate FiO2 02/26/17 07:05 91 20 139/72 100 02/26/17 07:00 90 26 129/44 100 02/26/17 06:55 78 26 122/72 100 02/26/17 06:54 97.8 100 20 160/127 96 02/26/17 06:52 161 24 88/64 93 02/26/17 06:45 105 23 96 100 02/26/17 06:45 101 28 54/40 100 02/26/17 06:43 101 55/13 02/26/17 06:40 115 24 132/100 100 02/26/17 06:33 108 22 258/194 77 02/26/17 06:31 114 23 02/26/17 06:21 153 24 160/127 02/26/17 06:20 112 23 96 100 02/26/17 06:20 Bag Valve Mask 15 Physical Exam Const: Apneic, pulseless, GCS:3 Head: Atraumatic Eyes: Normal Conjunctiva ENT: Normal External Ears, Nose and Mouth. Neck: No masses. JVD Resp: Apneic, markedly decreased BS with BVM respirations Cardio: Pulseless. Abd: Soft, no masses Skin: No petechiae or rashes Back: No deformity Ext: Cyanotic Neur: Unresponsive. GCS:3 Physical exam is truncated due to the constraints imposed by the patient's clinical condition. Result Diagram: 02/26/17 1620 02/26/17 1620 Results 24 hrs Laboratory Tests Test 02/26/17 06:50 Blood Gas Specimen Source Blood arterial Arterial Blood Date Drawn 02/26/2017 9:05:19 AM Arterial Blood pH (Temp corrected) 7.248 Arterial Blood pCO2 (Temp correct) 36.6mmhg Arterial Blood pO2 (Temp corrected) 133.6mmHG Arterial Blood HCO3 15.6mmol/L Arterial Blood Base Excess -10.8mmol/L Arterial Blood Oxygen Saturation 98.6mmHG Jimbo Test N/A Arterial Blood Gas Puncture Site A-Line Arterial Blood Carboxyhemoglobin 1.0% Arterial Blood Methemoglobin 0.3% Blood Gas A-a O2 Differential 542.8mmHg Oxyhemoglobin Percent 97.3% Total Hemoglobin 14.3g/dl Blood Gas Temperature 37.0C Blood Gas Respiration Rate 16.0 Blood Gas Actual Respiration Rate 16 Blood Gas Modality VENT - AC FiO2 100.0% Blood Gas Tidal Volume 550.0mL Blood Gas Low PEEP Setting 5.0cmH2O Blood Gas Critical Value Read Back E JAMILA JOAQUIN Blood Gas Notified Whom TM Blood Gas Notified Time 02/26/2017 9:22:21 AM Current Medications Medications (Trade) Dose Ordered Sig/Mare Route PRN Reason Start Time Stop Time Status Last Admin Dose Admin Midazolam HCl (Versed) 2 mg STK-MED ONCE .ROUTE 02/26/17 06:36 02/26/17 06:37 DC Heparin Sodium (Porcine) (Heparin (1000 Units/ml)) 10,000 unit STK-MED ONCE .ROUTE 02/26/17 06:36 02/26/17 06:37 DC Lidocaine (Xylocaine 1% (Mdv) 20 ml) 20 ml STK-MED ONCE .ROUTE 02/26/17 06:36 02/26/17 06:37 DC Iodixanol (Visipaque Locm) 50 ml STK-MED ONCE .ROUTE 02/26/17 06:37 02/26/17 06:38 DC Iodixanol 100 ml 100 ml STK-MED ONCE .ROUTE 02/26/17 06:37 02/26/17 06:38 DC Heparin Sodium/ Sodium Chloride (Heparin 1000 Units/NS (A-Line)) 1,500 ml @ ud STK-MED ONCE .ROUTE 02/26/17 06:37 02/26/17 06:38 DC Midazolam HCl (Versed) 2 mg STK-MED ONCE .ROUTE 02/26/17 06:37 02/26/17 06:38 DC Fentanyl (Sublimaze) 100 mcg STK-MED ONCE .ROUTE 02/26/17 06:37 02/26/17 06:38 DC Verapamil HCl (Verapamil) 5 mg STK-MED ONCE .ROUTE 02/26/17 06:37 02/26/17 06:38 DC Nitroglycerin 1000 mcg 1,000 mcg STK-MED ONCE .ROUTE 02/26/17 06:37 02/26/17 06:38 DC Norepinephrine (Levophed) 250 ml @ ud STK-MED ONCE .ROUTE 02/26/17 06:47 02/26/17 06:48 DC EKG: TIME: 06:05. Sinus rhythm with frequent premature supraventricular complexes. Ventricular rate 74. ST segment elevations in 2 3 and aVF with deep T-wave inversions in leads V1 through V3. EP Interpretation: Abnormal EKG. EKG: TIME: 06:24 atrial fib with RVR. T-wave inversions in 2 [address] No acute ST segment elevation. EP Interpretation: Abnormal EKG. EKG: TIME: 06:39. Sinus rhythm. Ventricular rate 98. Occasional PACs. No acute ST segment elevation or depression. EP Interpretation: Abnormal ECG IMAGING: PROCEDURE: XR Chest. CLINICAL INDICATION: Chest pain TECHNIQUE: Single frontal chest x-ray. COMPARISON: 01/06/2017 FINDINGS: There is an endotracheal tube in place tip above the steven although difficult to visualize due to thoracic fixation hardware. Nasogastric tube is in place with tip extending into the stomach. Sternotomy wires and thoracic spine fixation hardware is present. The lungs are clear of alveolar infiltrates, edema, or effusions. Previous right arm PICC line has been removed. .. The cardiomediastinal silhouette is unremarkable. The osseous structures are intact. Multiple overlying artifacts limit evaluation. IMPRESSION: No acute cardiopulmonary disease. Endotracheal tube and nasogastric tube in place. Sternotomy wires and thoracic fixation hardware in place. RPTAT: AA .Lopez Gill MD, MD Date Time Electronically viewed and signed by .Lopez Gill MD, MD on 02/26/2017 07:31 .L/ PROCEDURE: CT Brain without contrast. CLINICAL INDICATION: Altered loss of consciousness TECHNIQUE: CT scan of the brain was performed on a multidetector high- resolution CT scan. Axial imaging was obtained of the brain without contrast administration. Coronal and sagittal reformatted images were obtained from the axial source images. Standard CT scan of the head without contrast protocols were performed. The total exam CTDI equals 45.01 mGy and the total exam DLP equals 810.25 mGy- cm. One or more of the following dose reduction techniques were used: - Automated exposure control. - Adjustment of the mA and/or kV according to patient size. Use of iterative reconstruction technique. COMPARISON: None. FINDINGS: The patient is rotated and tilted to the right. There is extensive streak artifact degrading optimal evaluation. The ventricular system and peripheral CSF spaces are proportionately prominent consistent with moderate generalized cerebral volume loss. Negative for intracranial masses hemorrhages or midline shift. There is moderate periventricular and subcortical deep white matter changes that is nonspecific and consistent with chronic microvascular ischemic disease. there is a remote lacunar infarct involving the inferior left sub insular and endotracheal tube and nasogastric tube are present. The paranasal sinuses and mastoids are unremarkable. The bones and calvarium are intact. region. IMPRESSION: 1. Artifact degrading optimal evaluation. 2. Generalized cerebral volume loss and nonspecific chronic microvascular ischemic disease. 3. Negative for intracranial masses hemorrhages or midline shift. 4. Left sub insular remote lacunar infarct. RPTAT:AAJJ Physician Yancy Date Time Electronically viewed and signed by Physician Yancy on 02/26/2017 07:18 BM/ Procedures/MDM DOCUMENTS REVIEWED: ED nurse, EMS, prior ED, prior records and penitentiary facility records. PROCEDURES: Endotracheal Intubation by me: Pre assessment performed. See preceding note for details. Pre-oxygenation performed with 100% oxygen RSI: Performed w/o complication or hypoxic events. Medications as ordered. Blade: [place] scope ET Tube: 7.5 cm Depth: 22 cm at the lip Intubation confirmed by colorimetric CO2, equal breath sounds, quiet over the stomach. Chest X-ray 1V Interpreted by me: 1 cm above the steven ET tube. Normal soft tissue, No pneumothorax. Central Line Placement by me: Patient consented, sterilely draped, full prep, gown, glove, mask, time out performed. Anesthesia: 1% lidocaine locally Location: Right femoral Device: Multiple lumen Technique: Seldinger technique. Secured with suture. Results: Venous return from all ports with easy saline flush. No complications. Guide wire retrieved and disposed of. Cardiopulmonary Resuscitation by me: See code documentation for specific details. ACLS and BLS were performed with high quality chest compressions and minimal interruptions. Reversible causes were assessed and treated. Critical Care Time: 35 minutes Treatments/Evaluations: Close monitoring and treatment of unstable vital signs, cardiorespiratory, and neurologic status, while maintaining tight balance of fluid, respiratory, and cardiac interventions. This time includes discussing the case with the patient and the patient's family. This time does not include all procedures stated elsewhere in this record. This time also includes reviewing old records, labs and radiological studies. This time includes examining and re-examining the patient. Additionally, this time also includes arranging care with admitting and consulting physicians. MEDICAL DECISION MAKIN-year-old female with history of hypertension, coronary artery disease, chronic diastolic heart failure, dyslipidemia, COPD, hypothyroidism, DVT, pulmonary embolism post IVC filter on Xarelto and chronic pain brought to the ED via rescue ambulance for evaluation of altered mental status and possible ST segment elevation IN. Cardiopulmonary arrest successfully resuscitated. To laboratory development technician. CALLS/CONSULTS: Time 06:20, Dr. Coe, Recommends emergent cardiac cath. CALLS/CONSULTS: Time 06:40, Dr. Pearce, Recommends ICU admission PATIENT CARE TRANSITIONED: Time: 07:15, Dr. Pearce. Departure Diagnosis: Primary Impression: Cardiopulmonary arrest with successful resuscitation Condition: Critical KRISTEN SHER MD Feb 26, 2017 06:58
--- NOTE | 2017-02-26 07:02 | CONS ---
Date/Time of Note Date/Time of Note DATE: 02/26/17 TIME: 07:01 Assessment/Plan Assessment/Plan Chief Complaint/Hosp Course Inferior STEMI: Clinical picture is concerning as the pt had ST elevation inferiorly and changes V1/V2 suggesting possible inferoposterior territory. The changes were transient and resolved post arrest. She did not have VF arrest but instead PEA which is still possible if in the RCA territory. Cardiac arrest: PEA by report. ROSC after short course of CPR and one epi. Other etiologies include intracranial as pt on Xarelto, Less likely PE as on Xarelto but still possible. Altered mentation: Rule out intracranial bleed prior to cath ?CAD: pt has a sternotomy scar/wires but prior admission mentions "coronary repair" which pt apparently denied H/o DVT/PE/IVC filter: On Xarelto COPD Diastolic CHF -Somewhat unclear picture but if head CT rules out an intracranial bleed, a cardiac cath is indicated with her transient ST elevations and cardiac arrest. If cath is normal, chest CTA may be useful to rule out PE even in setting of anticoagulation -further recs pending cath Problems: Consultation Date/Type/Reason Admit Date/Time Date of Consultation: Feb 26, 2017 Type of Consultation: Cardiology Reason for Consultation STEMI, cardiac arrest Hx of Present Illness 77 yo F with a h/o ?CAD (pt has a sternotomy scar/wires but prior admission mentions "coronary repair" which pt apparently denied), diastolic heart failure , COPD, PE/DVT/IVC filter on Xarelto. The pt was recently admitted 12/2016 for chest pain, ruled out for [place], and thought to be noncardiac. She was discharged to her SNF. Apparently this am she was found lethargic/unresponsive. She was given narcan as she has a fentanyl patch and was slightly more alert. An EKG was done which showed inferior STEMI so she was brought to the ED. Here she had PEA arrest and had ROSC after one epi and brief CPR. Repeat EKGs have shown resolution of the ST elevations. She had brief afib but now is in sinus. She is intubated and unresponsive. She is now on levophed for hypotension/shock. Subjective hx not possible: pt non-verbal, pt critical Past Medical History per hPI Exam/Review of Systems Vital Signs Vitals Vital Signs Date Time Temp Pulse Resp B/P Pulse Ox O2 Delivery O2 Flow Rate FiO2 02/26/17 06:54 97.8 100 20 160/127 96 02/26/17 06:20 100 Exam Constitutional: No alert Head: normocephalic Neck: No jvd (difficult to examine ) Respiratory: diminished breath sounds, No clear to auscultation (ronchi ) Cardiovascular: edema (trace), regular rate and rhythm, No systolic murmur Gastrointestinal: other (obese), soft, No distended Extremities: No normal pulses (diminished ) Neurological: No nl mental status, No nl speech Skin: rash or lesions Results EKG at [facility]: 0.5-[address] elevation II,III,aVF. Submillimeter ST depression V1 and V2 with deep TW inversion EKG post arrest: wandering baseline makes interpretation difficult. possible ST elevation in inferior leads, same TW changes V1/V2 Subsequent EKG shows afib with RVR Final EKG shows resolution of ST/T changes CHANDRAKANT SILVA Feb 26, 2017 07:02
--- NOTE | 2017-02-26 07:18 | RADRPT ---
PROCEDURE: CT Brain without contrast. CLINICAL INDICATION: Altered loss of consciousness TECHNIQUE: CT scan of the brain was performed on a multidetector high-resolution CT scan. Axial im aging was obtained of the brain without contrast administration. Coronal and sagittal reformatted i mages were obtained from the axial source images. Standard CT scan of the head without contrast prot ocols were performed. The total exam CTDI equals 45.01 mGy and the total exam DLP equals 810.25 mGy-cm. One or more of the following dose reduction techniques were used: - Automated exposure control. - Adjustment of the mA and/or kV according to patient size. Use of iterative reconstruction technique. COMPARISON: None. FINDINGS: The patient is rotated and tilted to the right. There is extensive streak artifact degrading optima l evaluation. The ventricular system and peripheral CSF spaces are proportionately prominent consis tent with moderate generalized cerebral volume loss. Negative for intracranial masses hemorrhages o r midline shift. There is moderate periventricular and subcortical deep white matter changes that i s nonspecific and consistent with chronic microvascular ischemic disease. there is a remote lacunar infarct involving the inferior left sub insular and endotracheal tube and nasogastric tube are pres ent. The paranasal sinuses and mastoids are unremarkable. The bones and calvarium are intact. edwin on. IMPRESSION: 1. Artifact degrading optimal evaluation. 2. Generalized cerebral volume loss and nonspecific chronic microvascular ischemic disease. 3. Negative for intracranial masses hemorrhages or midline shift. 4. Left sub insular remote lacunar infarct. RPTAT:AAJJ Physician Yancy Date Time Electronically viewed and signed by Physician Yancy on 02/26/2017 07:18 BM/
[2017-02-26] MEDS ORDERED: PROPOFOL 100 ML IV SCH (07:30)
--- NOTE | 2017-02-26 07:31 | RADRPT ---
PROCEDURE: XR Chest. CLINICAL INDICATION: Chest pain TECHNIQUE: Single frontal chest x-ray. COMPARISON: 01/06/2017 FINDINGS: There is an endotracheal tube in place tip above the steven although difficult to visualize due to t horacic fixation hardware. Nasogastric tube is in place with tip extending into the stomach. Shaikh otomy wires and thoracic spine fixation hardware is present. The lungs are clear of alveolar infilt rates, edema, or effusions. Previous right arm PICC line has been removed. .. The cardiomediastin al silhouette is unremarkable. The osseous structures are intact. Multiple overlying artifacts limi t evaluation. IMPRESSION: No acute cardiopulmonary disease. Endotracheal tube and nasogastric tube in place. Sternotomy wires and thoracic fixation hardware in place. RPTAT: AA .Lopez Gill MD, Date Time Electronically viewed and signed by .Lopez Gill MD, on 02/26/2017 07:31 .L/
--- NOTE | 2017-02-26 08:12 | OPR ---
Date/Time of Note Date/Time of Note DATE: 02/26/17 TIME: 08:05 Operative Report Free Text/Dictation Procedure Date: 02/26/2017 Procedures Performed: 1)Left heart catheterization with selective left and right coronary angiography. 2)Left ventricle angiography 3)Selective left femoral angiography Pre-operative Diagnosis: possible inferior STEMI, cardiac arrest Post-operative Diagnosis:no significant CAD Indications: 77 yo F with a h/o ?CAD (pt has a sternotomy scar/wires but prior admission mentions "coronary repair" which pt apparently denied), diastolic heart failure , COPD, PE/DVT/IVC filter on Xarelto. The pt was recently admitted 12/2016 for chest pain, ruled out for [place], and thought to be noncardiac. She was discharged to her SNF. Apparently this am she was found lethargic/unresponsive. She was given narcan as she has a fentanyl patch and was slightly more alert. An EKG was done which showed inferior STEMI so she was brought to the ED. Here she had PEA arrest and had ROSC after one epi and brief CPR. Repeat EKGs have shown resolution of the ST elevations. She had brief afib but now is in sinus. She is intubated and unresponsive. She is now on levophed for hypotension/shock. Description of Procedure: The procedure site was prepped and draped in usual manner. 8 mL lidocaine was injected into the left groin. Next using the Seldinger technique, the 6 italian sheath was inserted into the left femoral artery. Next using the JL4 and JR4 guide, selective angiography of the left and right coronary arteries were obtained. The pigtail was then advanced into the ventricle and hemodynamics obtained. Left ventricle angiography was obtained. Next all equipment was removed and hemostasis will be obtained by manual compression. Findings: Anatomy/Hemodynamics: Left main: normal LAD:normal Diagonal:normal Circumflex:normal Obtuse marginal:normal RCA:normal PDA:normal PLV:normal LV angiography: EF >60%, no wall motion abnormalities LV: 142/0 Ao:131/62 LVEDP: 6 mmHg Contrast used: 95 mL Fluoroscopy time: 2.8 Assessment: ?Inferior STEMI: no coronary artery disease by cath. Vasospasm is still in the differential Cardiac arrest: PEA. Look for other reasons including PE (even on anticoagulation) Questionable prior CABG but no e/o CAD or bypass grafts on LV/Ao-gram. Possible other intrathoracic surgery Acute respiratory failure Plan: -to ICU -would r/o PE -further management per ICU team CHANDRAKANT SILVA Feb 26, 2017 08:11
[2017-02-26 09:23] LABS: AADO2 Arterial 542.8 mmHg (7.0-24.0); Arterial Base Excess -10.8 mmol/L (-3.0-3); Arterial Fraction of Oxyhgb 97.3 % (93.0-99.0); Arterial HCO3 15.6 mmol/L (22.0-26.0); Arterial MetHb 0.3 % (0.0-1.5); Arterial Total Hemglobin 14.3 g/dl (12.0-18.0); MODE VENT - AC
[2017-02-26] MEDS ORDERED: ONDANSETRON 4 MG INJ IV PRN (09:30)
[2017-02-26] MEDS ORDERED: ACETAMINOPHEN 325 MG TAB PO PRN (09:30)
[2017-02-26 09:52] LABS: ABNORMAL IP MESSAGE 1; BASOPHILS % 0.1 % (0.0-2.0); HEMATOCRIT 44.6 % (37.0-47.0); HEMOGLOBIN 13.4 g/dl (12.0-16.0); LYMPHOCYTES # 0.5 10^3/ul (0.8-2.9); LYMPHOCYTES % 2.3 % (15.0-51.0); MEAN CORPUSCULAR HEMOGLOBIN 27.4 pg (29.0-33.0); MEAN CORPUSCULAR VOLUME 91.2 fl (82.0-101.0); MEAN PLATELET VOLUME 10.3 fl (7.4-10.4); MONOCYTE # 1.5 10^3/ul (0.3-0.9); MONOCYTES % 7.1 % (0.0-11.0); NEUTROPHIL # 18.8 10^3/ul (1.6-7.5); NEUTROPHILS % 89.9 % (39.0-77.0); PLATELET COUNT 384 10^3/UL (140-415); RED BLOOD COUNT 4.89 10^6/ul (4.20-5.40); RED CELL DISTRIBUTION WIDTH 18.2 % (11.5-14.5); WHITE BLOOD COUNT 20.9 10^3/ul (4.8-10.8)
[2017-02-26 10:08] LABS: INR 1.34; PROTIME 16.7 Sec (12.2-14.2); PT RATIO 1.3
[2017-02-26 10:09] LABS: PARTIAL THROMBOPLASTIN TIME 28.2 Sec (25.0-35.0)
[2017-02-26 10:13] LABS: MAGNESIUM 2.4 mg/dl (1.7-2.5); PHOSPHORUS 7.5 mg/dl (2.5-4.9)
[2017-02-26 10:14] LABS: ALBUMIN 3.4 g/dl (3.3-4.9); ALBUMIN/GLOBULIN RATIO 1.09; CALCIUM 7.8 mg/dl (8.4-10.2); CREATININE 2.56 mg/dl (0.44-1.00); TOTAL PROTEIN 6.5 g/dl (6.1-8.1)
[2017-02-26] MEDS ORDERED: VANCOMYCIN 1 GM (PMX) 250 ML IVPB SCH (10:30)
[2017-02-26] MEDS ORDERED: SOD CHLORIDE 0.9% 1,000 ML IV SCH (10:30)
[2017-02-26] MEDS ORDERED: VANCOMYCIN IV PER PHARMACY XX SCH (10:30)
[2017-02-26] MEDS ORDERED: NORepinephrine 8MG/250 ML (PMX 250 ML IV SCH (10:30)
--- NOTE | 2017-02-26 10:46 | CONS ---
Date/Time of Note Date/Time of Note DATE: 02/26/17 TIME: 10:38 Assessment/Plan Assessment/Plan Additional Assessment/Plan 1. Status post cardiorespiratory arrest 2. Upper GI bleeding most probably related to Xarelto. Hematocrit is 41 3. History of pulmonary embolism 4. COPD 5. Hypertension 6. Chronic diastolic heart failure 7. History of DVT 8. History of IVC filter 9. Chronic pain syndrome 10. Status post back surgery bladder surgery and multiple arthroplasties. 11. Leukocytosis Plan Continue all supportive care Continue antibiotic and PPI We will monitor H&H and WBC count. We will proceed with EGD once he is more stable. Consultation Date/Type/Reason Admit Date/Time Reason for Consultation GI bleeding, coffee-ground colored emesis. Hx of Present Illness 77-year-old female with a history of coronary artery disease, hypertension, COPD , hypothyroidism, history of DVT, history of IVC filter, pulmonary embolism, was found to have altered level of consciousness at longterm. Paramedics was called in give 2 mg of Narcan but patient did not wake up so was brought to the emergency room at [facility]. When patient was transferred to the [facility] no pulse was felt. Resuscitation procedure was initiated. Patient was subsequently intubated and taken to the cardiac [facility]. Coronary angiogram was negative. Her ejection fraction was 60%. Patient was intubated and transferred to the intensive care unit. NG tube was passed and coffee- ground colored material was aspirated so GI consult was called in. Patient is sedated no information could be gathered most of the information gathered by reviewing the chart and discussing with the staff nurse. No melanotic stool. No seizure. Patient was on Xarelto for her pulmonary embolism Past Medical History Medical History: hypothyroid Social History Alcohol Use: none Smoking Status: Unknown if ever smoked Drug Use: none Exam/Review of Systems Vital Signs Vitals Vital Signs Date Time Temp Pulse Resp B/P Pulse Ox O2 Delivery O2 Flow Rate FiO2 02/26/17 09:30 70 16 104/80 99 Mechanical Ventilator 02/26/17 08:45 97.9 02/26/17 06:45 100 02/26/17 06:20 15 Exam Constitutional: non-verbal Psych: confusion Head: atraumatic, normocephalic Eyes: EOMI, PERRL, nl conjunctiva, nl lids, nl sclera ENMT: nl external ears & nose, nl lips & teeth, nl nasal mucosa & septum Neck: non-tender, supple Respiratory: other (Patient is on vent) Cardiovascular: nl pulses, regular rate and rhythm Gastrointestinal: nl liver, spleen, non-tender, soft Musculoskeletal: nl extremities to inspection, nl gait and stance Extremities: normal pulses Neurological: unresponsive Results Result Diagram: 02/26/1717 02/26/17 0917 Results 24 hrs Laboratory Tests Test 02/26/17 06:50 02/26/17 09:17 Blood Gas Specimen Source Blood arterial Arterial Blood Date Drawn 02/26/2017 9:05:19 AM Arterial Blood pH (Temp corrected) 7.248 *L Arterial Blood pCO2 (Temp correct) 36.6 Arterial Blood pO2 (Temp corrected) 133.6 H Arterial Blood HCO3 15.6 L Arterial Blood Base Excess -10.8 L Arterial Blood Oxygen Saturation 98.6 Jimbo Test N/A Arterial Blood Gas Puncture Site A-Line Arterial Blood Carboxyhemoglobin 1.0 Arterial Blood Methemoglobin 0.3 Blood Gas A-a O2 Differential 542.8 H Oxyhemoglobin Percent 97.3 Total Hemoglobin 14.3 Blood Gas Temperature 37.0 Blood Gas Respiration Rate 16.0 Blood Gas Actual Respiration Rate 16 Blood Gas Modality VENT - AC FiO2 100.0 Blood Gas Tidal Volume 550.0 Blood Gas Low PEEP Setting 5.0 Blood Gas Critical Value Read Back E JAMILA JOAQUIN Blood Gas Notified Whom TM Blood Gas Notified Time 02/26/2017 9:22:21 AM White Blood Count 20.9 #H Red Blood Count 4.89 # Hemoglobin 13.4 # Hematocrit 44.6 # Mean Corpuscular Volume 91.2 Mean Corpuscular Hemoglobin 27.4 L Mean Corpuscular Hemoglobin Concent 30.0 L Red Cell Distribution Width 18.2 H Platelet Count 384 # Mean Platelet Volume 10.3 Neutrophils % 89.9 H Lymphocytes % 2.3 L Monocytes % 7.1 Eosinophils % 0.0 Basophils % 0.1 Nucleated Red Blood Cells % 0.0 Neutrophils # 18.8 H Lymphocytes # 0.5 L Monocytes # 1.5 H Eosinophils # 0.0 Basophils # 0.0 Nucleated Red Blood Cells # 0.0 Prothrombin Time 16.7 H Prothrombin Time Ratio 1.3 INR International Normalized Ratio 1.34 Activated Partial Thromboplast Time 28.2 Sodium Level 144 Potassium Level 5.0 Chloride Level 105 Carbon Dioxide Level 21 Anion Gap 23 H Blood Urea Nitrogen 40 H Creatinine 2.56 H Glucose Level 156 Calcium Level 7.8 L Phosphorus Level 7.5 H Magnesium Level 2.4 Total Bilirubin 0.0 L Direct Bilirubin 0.00 Indirect Bilirubin 0.0 Aspartate Amino Transf (AST/SGOT) 79 H Alanine Aminotransferase (ALT/SGPT) 42 Alkaline Phosphatase 96 Total Protein 6.5 Albumin 3.4 Globulin 3.10 Albumin/Globulin Ratio 1.09 Medications Medications Current Medications Acetaminophen (Tylenol Tab) 650 mg Q4H PRN PO PAIN AND OR ELEVATED TEMP; Start 02/26/17 at 09:30 Docusate Sodium (Colace) 100 mg DAILY PO ; Start 02/27/17 at 09:00 Montelukast Sodium (Singulair) 10 mg QHS PO ; Start 02/26/17 at 21:00 Atorvastatin Calcium (Lipitor) 10 mg QHS PO ; Start 02/26/17 at 21:00 Ondansetron HCl 4 mg 4 mg Q4H PRN IV NAUSEA AND/OR VOMITING; Start 02/26/17 at 09:30 Norepinephrine 250 ml @ 1.875 mls/ hr TITRATE IV ; Start 02/26/17 at 10:30; Stop 02/26/17 at 16:00 Sodium Chloride (NS) 1,000 ml @ 100 mls/hr Q10H IV ; Start 02/26/17 at 10:30 Pantoprazole 40 mg 40 mg BID@06,18 IV ; Start 02/26/17 at 18:00 Piperacillin Sod/ Tazobactam Sod 100 ml @ 200 mls/hr Q8 IVPB ; Start 02/26/17 at 14:00; Status UNV Norepinephrine 16 mg/Dextrose 500 ml @ 1.875 mls/ hr TITRATE IV ; Start at 11:30 Vancomycin HCl/ Sodium Chloride (Vancocin/NS) 250 ml @ 83.333 mls/ hr ONCE IVPB ; Start 02/26/17 at 11:30; Stop 02/26/17 at 14:29 MERISSA UNDERWOOD MD Feb 26, 2017 10:46
[2017-02-26 10:58] LABS: CK-MB 5.85 ng/ml (0.0-2.4)
[2017-02-26 11:03] LABS: TROPONIN-I 0.45 ng/ml (0.00-0.12)
[2017-02-26] MEDS ORDERED: VANCOMYCIN 1.25 GM in SOD CHLORIDE 0.9% 250 ML IVPB SCH (11:30)
[2017-02-26] MEDS ORDERED: LEVETIRACETAM IV 1,000 MG in SOD CHLORIDE 0.9% 100 ML IVPB SCH (12:30)
--- NOTE | 2017-02-26 12:47 | CONS ---
Date/Time of Note Date/Time of Note DATE: 02/26/17 TIME: 12:42 Assessment/Plan Assessment/Plan Additional Assessment/Plan Chest x-ray was reviewed from today which is essentially unremarkable. Endotracheal tube is at an adequate level. Multiple thoracic surgical clips as well as rods are seen. Ventilator setting; AC of 14, tidal volume 550, PEEP of 5, 90% FiO2. Patient currently on Levophed at 26 mics per minute. Assessment recommendations; next 1. Patient admitted with cardiac arrest status post along CPR with likely resulting anoxic brain injury as evidenced by myoclonic jerking. 2. Possibly significant aspiration pneumonia. 3. History of possible schizophrenia. 4. Likely underlying chronic renal insufficiency. 5. Upper GI bleed. Continue current supportive care. Start intravenous Keppra and Depakote. Continue current antibiotics. Prognosis appears extremely poor. I did have a very lengthy discussion the patient's nephew at bedside and apprised him of his arms very poor status. The nephew is fully aware of the situation and wants to have aggressive medical management for the next day or 2 and then decide for possible DNR versus possible terminal extubation if required. Consultation Date/Type/Reason Admit Date/Time Date of Consultation: Feb 26, 2017 Type of Consultation: Pulmonary/critical care Reason for Consultation Pulmonary consultation requested for evaluation of respiratory failure. Patient admitted with cardiac arrest. History of presenting any; patient is a 77-year-old white lady who [facility] undergoing cardiac arrest requiring prolonged CPR. By the time I saw the patient the patient is orally intubated on ventilator and is completely unresponsive. Exhibiting what appears to be myoclonic jerking. History was obtained from medical records as well as from patient's nephew was currently in the room. Past medical history; 1. Patient with a history of spinal surgery with placement of vertebral rods. 2. Possibly chronic renal insufficiency. 3. Possibly schizophrenia. Medications; reviewed. Allergies; penicillin and sulfa as well as erythromycin base. Social history; patient smokes off and on. No history of drug abuse. Family history; patient is . Has 2 children. Her nephew takes care of her. Occupation : patient used to work in real estate. Review of systems; currently unable to be obtained. General exam; elderly woman, orally intubated, exhibiting myoclonic jerking. Psychological: confusion Past Medical History Medical History: hypothyroid Social History Alcohol Use: none Smoking Status: Former smoker Drug Use: none Exam/Review of Systems Vital Signs Vitals Vital Signs Date Time Temp Pulse Resp B/P Pulse Ox O2 Delivery O2 Flow Rate FiO2 02/26/17 11:45 65 16 101/51 95 Mechanical Ventilator 02/26/17 08:45 97.9 02/26/17 06:45 100 02/26/17 06:20 15 Exam HEENT exam; supple neck, dilated pupils. Has bilateral intraocular lens implants. Patient is orally intubated. He is edentulous. No neck masses. No thyromegaly. Chest exam; diminished but clear breath sound. S1-S2 audible, no murmurs. Tachycardic. Back examination reveals a well-healed thoracic's spine scar. Abdomen exam; soft, no organomegaly. Bowel sounds are absent. Extremity exam; chronic appearing lower extremity skin changes. No edema. Dorsalis pedis and posterior tibial pulses not palpable. [employer] exam; patient having myoclonic jerking. Results Result Diagram: 02/26/1717 02/26/17 0917 Results 24 hrs Laboratory Tests Test 02/26/17 06:50 02/26/17 09:17 02/26/17 10:33 Blood Gas Specimen Source Blood arterial Arterial Blood Date Drawn 02/26/2017 9:05:19 AM Arterial Blood pH (Temp corrected) 7.248 *L Arterial Blood pCO2 (Temp correct) 36.6 Arterial Blood pO2 (Temp corrected) 133.6 H Arterial Blood HCO3 15.6 L Arterial Blood Base Excess -10.8 L Arterial Blood Oxygen Saturation 98.6 Jimbo Test N/A Arterial Blood Gas Puncture Site A-Line Arterial Blood Carboxyhemoglobin 1.0 Arterial Blood Methemoglobin 0.3 Blood Gas A-a O2 Differential 542.8 H Oxyhemoglobin Percent 97.3 Total Hemoglobin 14.3 Blood Gas Temperature 37.0 Blood Gas Respiration Rate 16.0 Blood Gas Actual Respiration Rate 16 Blood Gas Modality VENT - AC FiO2 100.0 Blood Gas Tidal Volume 550.0 Blood Gas Low PEEP Setting 5.0 Blood Gas Critical Value Read Back E JAMILA JOAQUIN Blood Gas Notified Whom TM Blood Gas Notified Time 02/26/2017 9:22:21 AM White Blood Count 20.9 #H Red Blood Count 4.89 # Hemoglobin 13.4 # Hematocrit 44.6 # Mean Corpuscular Volume 91.2 Mean Corpuscular Hemoglobin 27.4 L Mean Corpuscular Hemoglobin Concent 30.0 L Red Cell Distribution Width 18.2 H Platelet Count 384 # Mean Platelet Volume 10.3 Neutrophils % 89.9 H Lymphocytes % 2.3 L Monocytes % 7.1 Eosinophils % 0.0 Basophils % 0.1 Nucleated Red Blood Cells % 0.0 Neutrophils # 18.8 H Lymphocytes # 0.5 L Monocytes # 1.5 H Eosinophils # 0.0 Basophils # 0.0 Nucleated Red Blood Cells # 0.0 Prothrombin Time 16.7 H Prothrombin Time Ratio 1.3 INR International Normalized Ratio 1.34 Activated Partial Thromboplast Time 28.2 Sodium Level 144 Potassium Level 5.0 Chloride Level 105 Carbon Dioxide Level 21 Anion Gap 23 H Blood Urea Nitrogen 40 H Creatinine 2.56 H Glucose Level 156 Calcium Level 7.8 L Phosphorus Level 7.5 H Magnesium Level 2.4 Total Bilirubin 0.0 L Direct Bilirubin 0.00 Indirect Bilirubin 0.0 Aspartate Amino Transf (AST/SGOT) 79 H Alanine Aminotransferase (ALT/SGPT) 42 Alkaline Phosphatase 96 Creatine Kinase 166 Creatine Kinase Index 3.5 Creatinine Kinase MB (Mass) 5.85 H Troponin I 0.450 *H Total Protein 6.5 Albumin 3.4 Globulin 3.10 Albumin/Globulin Ratio 1.09 Lactic Acid Level 3.1 *H Medications Medications Current Medications Acetaminophen (Tylenol Tab) 650 mg Q4H PRN PO PAIN AND OR ELEVATED TEMP; Start 02/26/17 at 09:30 Docusate Sodium (Colace) 100 mg DAILY PO ; Start 02/27/17 at 09:00 Montelukast Sodium (Singulair) 10 mg QHS PO ; Start 02/26/17 at 21:00 Atorvastatin Calcium (Lipitor) 10 mg QHS PO ; Start 02/26/17 at 21:00 Ondansetron HCl 4 mg 4 mg Q4H PRN IV NAUSEA AND/OR VOMITING; Start 02/26/17 at 09:30 Norepinephrine 250 ml @ 1.875 mls/ hr TITRATE IV Last administered on t 10:41; Admin Dose 48.75 MLS/HR; Start 02/26/17 at 10:30; Stop 02/26/17 at 16: 00 Sodium Chloride (NS) 1,000 ml @ 100 mls/hr Q10H IV Last administered on 10:38; Admin Dose 100 MLS/HR; Start 02/26/17 at 10:30 Pantoprazole 40 mg 40 mg BID@06,18 IV ; Start 02/26/17 at 18:00 Piperacillin Sod/ Tazobactam Sod 100 ml @ 200 mls/hr Q8 IVPB ; Start 02/26/17 at 14:00; Status UNV Norepinephrine 16 mg/Dextrose 500 ml @ 1.875 mls/ hr TITRATE IV ; Start at 11:30 Vancomycin HCl 1.25 gm/Sodium Chloride 250 ml @ 83.333 mls/ hr ONCE IVPB Last administered on 02/26/17 11:43; Admin Dose 83.333 MLS/HR; Start 02/26/17 at 11:30 ; Stop 02/26/17 at 14:29 Levetiracetam 1000 mg/Sodium Chloride 110 ml @ 430 mls/hr ONCE IVPB Last administered on 02/26/17 12:16; Admin Dose 430 MLS/HR; Start 02/26/17 at 12:30; Stop 02/26/17 at 12:46 Levetiracetam 100 ml @ 400 mls/hr Q12 IVPB ; Start 02/26/17 at 21:00 Valproate Sodium/ Sodium Chloride (Depacon/NS) 55 ml @ 55 mls/hr Q8 IVPB ; Start 02/26/17 at 14:00 ROMAN COLLINS Feb 26, 2017 12:47
[2017-02-26] MEDS ORDERED: PHENYLephrine 20MG IN 250 ML 250 ML ONE (13:13)
[2017-02-26] MEDS: VALPROATE INJ 500 MG in SOD CHLORIDE 0.9% 50 ML IVPB SCH ×2 (13:14→22:28)
[2017-02-26] MEDS ORDERED: PHENYLephrine 20MG IN 250 ML 250 ML IV SCH (13:30)
[2017-02-26] MEDS ORDERED: LEVOFLOXACIN 750MG/D5W (PMX) 150 ML IVPB SCH (14:00)
[2017-02-26] MEDS ORDERED: PIPER-TAZO 3.375 GM IV (PMX) 100 ML IVPB SCH (14:00)
--- NOTE | 2017-02-26 15:40 | CONS ---
Date/Time of Note Date/Time of Note DATE: 02/26/17 TIME: 15:37 Consultation Date/Type/Reason Admit Date/Time Date of Consultation: Feb 26, 2017 Type of Consultation: ID Reason for Consultation Antibiotic management. PT. currently on pressors. Started on Vanco and levaquin.BCs drawn. Psychological: confusion Past Medical History Medical History: hypothyroid Social History Alcohol Use: none Smoking Status: Former smoker Drug Use: none Exam/Review of Systems Vital Signs Vitals Vital Signs Date Time Temp Pulse Resp B/P Pulse Ox O2 Delivery O2 Flow Rate FiO2 02/26/17 14:00 69 14 113/74 94 Mechanical Ventilator 02/26/17 12:15 97.9 02/26/17 06:45 100 02/26/17 06:20 15 Results Result Diagram: 02/26/17 0917 02/26/17 0917 Results 24 hrs Laboratory Tests Test 02/26/17 06:50 02/26/17 09:17 02/26/17 10:33 Blood Gas Specimen Source Blood arterial Arterial Blood Date Drawn 02/26/2017 9:05:19 AM Arterial Blood pH (Temp corrected) 7.248 *L Arterial Blood pCO2 (Temp correct) 36.6 Arterial Blood pO2 (Temp corrected) 133.6 H Arterial Blood HCO3 15.6 L Arterial Blood Base Excess -10.8 L Arterial Blood Oxygen Saturation 98.6 Jimbo Test N/A Arterial Blood Gas Puncture Site A-Line Arterial Blood Carboxyhemoglobin 1.0 Arterial Blood Methemoglobin 0.3 Blood Gas A-a O2 Differential 542.8 H Oxyhemoglobin Percent 97.3 Total Hemoglobin 14.3 Blood Gas Temperature 37.0 Blood Gas Respiration Rate 16.0 Blood Gas Actual Respiration Rate 16 Blood Gas Modality VENT - AC FiO2 100.0 Blood Gas Tidal Volume 550.0 Blood Gas Low PEEP Setting 5.0 Blood Gas Critical Value Read Back E JAMILA JOAQUIN Blood Gas Notified Whom TM Blood Gas Notified Time 02/26/2017 9:22:21 AM White Blood Count 20.9 #H Red Blood Count 4.89 # Hemoglobin 13.4 # Hematocrit 44.6 # Mean Corpuscular Volume 91.2 Mean Corpuscular Hemoglobin 27.4 L Mean Corpuscular Hemoglobin Concent 30.0 L Red Cell Distribution Width 18.2 H Platelet Count 384 # Mean Platelet Volume 10.3 Neutrophils % 89.9 H Lymphocytes % 2.3 L Monocytes % 7.1 Eosinophils % 0.0 Basophils % 0.1 Nucleated Red Blood Cells % 0.0 Neutrophils # 18.8 H Lymphocytes # 0.5 L Monocytes # 1.5 H Eosinophils # 0.0 Basophils # 0.0 Nucleated Red Blood Cells # 0.0 Prothrombin Time 16.7 H Prothrombin Time Ratio 1.3 INR International Normalized Ratio 1.34 Activated Partial Thromboplast Time 28.2 Sodium Level 144 Potassium Level 5.0 Chloride Level 105 Carbon Dioxide Level 21 Anion Gap 23 H Blood Urea Nitrogen 40 H Creatinine 2.56 H Glucose Level 156 Calcium Level 7.8 L Phosphorus Level 7.5 H Magnesium Level 2.4 Total Bilirubin 0.0 L Direct Bilirubin 0.00 Indirect Bilirubin 0.0 Aspartate Amino Transf (AST/SGOT) 79 H Alanine Aminotransferase (ALT/SGPT) 42 Alkaline Phosphatase 96 Creatine Kinase 166 Creatine Kinase Index 3.5 Creatinine Kinase MB (Mass) 5.85 H Troponin I 0.450 *H Total Protein 6.5 Albumin 3.4 Globulin 3.10 Albumin/Globulin Ratio 1.09 Lactic Acid Level 3.1 *H Medications Medications Current Medications Acetaminophen (Tylenol Tab) 650 mg Q4H PRN PO PAIN AND OR ELEVATED TEMP; Start 02/26/17 at 09:30 Docusate Sodium (Colace) 100 mg DAILY PO ; Start 02/27/17 at 09:00 Montelukast Sodium (Singulair) 10 mg QHS PO ; Start 02/26/17 at 21:00 Atorvastatin Calcium (Lipitor) 10 mg QHS PO ; Start 02/26/17 at 21:00 Ondansetron HCl 4 mg 4 mg Q4H PRN IV NAUSEA AND/OR VOMITING; Start 02/26/17 at 09:30 Norepinephrine 250 ml @ 1.875 mls/ hr TITRATE IV Last administered on 10:41; Admin Dose 48.75 MLS/HR; Start 02/26/17 at 10:30; Stop 02/26/17 at 16: 00 Sodium Chloride (NS) 1,000 ml @ 100 mls/hr Q10H IV Last administered on 10:38; Admin Dose 100 MLS/HR; Start 02/26/17 at 10:30 Pantoprazole 40 mg 40 mg BID@06,18 IV ; Start 02/26/17 at 18:00 Norepinephrine 16 mg/Dextrose 500 ml @ 1.875 mls/ hr TITRATE IV Last administered on 02/26/17 15:32; Admin Dose 45 MLS/HR; Start 02/26/17 at 11:30 Levetiracetam 100 ml @ 400 mls/hr Q12 IVPB ; Start 02/26/17 at 21:00 Valproate Sodium 500 mg/Sodium Chloride 55 ml @ 55 mls/hr Q8 IVPB Last administered on 02/26/17 13:14; Admin Dose 55 MLS/HR; Start 02/26/17 at 14:00 Phenylephrine HCl 250 ml @ 75 mls/hr TITRATE IV Last administered on 02/26/17 13:35; Admin Dose 0 MLS/HR; Start 02/26/17 at 13:30; Stop 02/26/17 at 16:00 Phenylephrine HCl 40 mg/Dextrose 500 ml @ 75 mls/hr TITRATE IV ; Start 02/26/17 at 13:30 Levofloxacin/ Dextrose 150 ml @ 100 mls/hr Q48H IVPB Last administered on 15:18; Admin Dose 100 MLS/HR; Start 02/26/17 at 14:00 Vancomycin HCl/ Sodium Chloride (Vancocin/NS) 150 ml @ 75 mls/hr Q48H IVPB ; Start 02/28/17 at 12:00 ADIEL MAJOR MD Feb 26, 2017 15:40
[2017-02-26 16:45] LABS: ABNORMAL IP MESSAGE 1; HEMATOCRIT 46.1 % (37.0-47.0); HEMOGLOBIN 13.8 g/dl (12.0-16.0); MEAN CORPUSCULAR HEMOGLOBIN 27.3 pg (29.0-33.0); MEAN CORPUSCULAR HGB CONC 29.9 g/dl (32.0-37.0); MEAN CORPUSCULAR VOLUME 91.3 fl (82.0-101.0); MEAN PLATELET VOLUME 10.4 fl (7.4-10.4); PLATELET COUNT 383 10^3/UL (140-415); RED BLOOD COUNT 5.05 10^6/ul (4.20-5.40); RED CELL DISTRIBUTION WIDTH 18.4 % (11.5-14.5); WHITE BLOOD COUNT 19.5 10^3/ul (4.8-10.8)
[2017-02-26 17:06] LABS: CALCIUM 7.6 mg/dl (8.4-10.2); CREATININE 2.88 mg/dl (0.44-1.00); POTASSIUM 5.7 mmol/L (3.5-5.1)
[2017-02-26 17:09] LABS: POSITIVE DIFF @See below
--- NOTE | 2017-02-26 17:20 | HP ---
DATE OF ADMISSION: 02/26/2017 CHIEF COMPLAINT: Cardiac arrest. HISTORY OF PRESENT ILLNESS: This is a 77-year-old female with a past medical history of chronic diastolic heart failure, history of hypertension, coronary artery disease, dyslipidemia, COPD, history of hypothyroidism, hypothyroidism, history of a DVT, pulmonary embolism status post inferior vena cava (IVC) filter, history of cognitive decline, dementia, history of chronic pain syndrome who presents to [facility] from her assisted facility after being found altered. The patient apparently was in her normal state of health until early this morning when patient was noted to be unresponsive. As a result, paramedics were called. The patient was given Narcan in the field without any significant improvement. The patient arrived into the emergency department and became apneic and pulseless. Underwent code arrest. The patient had spontaneous return of circulation after chest compressions and epinephrine. The patient's EKG was concerning for possible ST elevation CA. She was seen by medical assistant float, [____], and taken to cardiac cath for evaluation. The patient apparently had normal coronary arteries and was taken to the intensive care unit. In the intensive care unit, the patient was noted to be in shock, was placed on presser support, was given IV antibiotics and IV fluids. The patient also noted to have a coffee-grounds emesis. PAST MEDICAL HISTORY: As stated above, history of chronic diastolic heart failure, history of hypertension, coronary artery disease, dyslipidemia, COPD, hypothyroidism, history DVT, PE, history of dementia, chronic pain syndrome, cellulitis. PAST SURGICAL HISTORY: Includes multiple arthroplasties, back surgery, bladder surgery status post inferior vena cava (IVC) filter placement. FAMILY HISTORY: Noncontributory. SOCIAL HISTORY: Does not drink or smoke. MEDICATIONS: Reviewed and reconciled. REVIEW OF SYSTEMS: Unable to do an adequate review of systems, as patient is obtunded. Pertinent positives in HPI, otherwise negative. PHYSICAL EXAMINATION: VITAL SIGNS: Blood pressure is 109/56, respirations 20, pulse 89, and temperature 98.6. HEENT: Head is normocephalic. Pupils are dilated with minimal response. NECK: Supple. CARDIAC: Heart is tachycardic. LUNGS: Diminished breath sounds at base. ABDOMEN: Soft, nontender to palpation. No guarding. EXTREMITIES: Negative for clubbing or cyanosis. No edema. DERMATOLOGIC: No rashes. MUSCULOSKELETAL: No joint effusion. NEUROLOGIC: Limited exam, as patient is obtunded. LABORATORY DATA: White count 20.9, hemoglobin 13.4, platelet count 384. Sodium 144, potassium 5.0, chloride 105, BUN 42, creatinine 2.56, lactic acid 3.1. Troponin 0.450. AST 49. IMAGING STUDIES: Chest x-ray shows no acute findings. CT scan of brain shows negative for any bleeding mass. ASSESSMENT AND PLAN: This is a 77-year-old female who presents with: 1. Cardiac arrest, pulseless electrical activity. Underlying etiology is unclear. Possible arrhythmia versus pulmonary versus other. The patient is status post cardiac cath which showed normal coronaries. The patient does not meet criteria for hypothermic protocol. Plan at this point is to continue to monitor closely. Will follow up with cardiology for recommendations. 2. Acute encephalopathy. Etiology is concerning for anoxic injury due to code arrest. The patient had a CT scan that showed no acute findings. We will place a neurologic consult for evaluation. Monitor closely. 3. Mild chronic jerks concerning for anoxic injury versus seizure. Continue Keppra. Will follow up with Neurology. 4. Inferior ST-elevation myocardial infarction. The patient is status post cardiac catheterization with normal coronaries. Will follow up with Cardiology. Recommendations: Holding aspirin in the setting hematemesis. 5. Acute gastrointestinal bleed. The patient is with noted hematemesis. We will place a gastroenterology consult for evaluation. Will hold anticoagulation. Monitor hemoglobin and hematocrit levels. 6. History of deep vein thrombosis and pulmonary embolism status post inferior vena cava (IVC) filter. The patient may have underlying PE. Will consider getting a CT angio or venous thromboembolism scan once clinically stable. 7. Ventilator dependent respiratory failure. Vent settings reviewed. ABGs reviewed. Continue to monitor. Follow up with Pulmonary. 8. Shock, presumed septic. The patient has an elevated white count. Underlying source is unclear, possible aspiration pneumonia. Continue broad-spectrum antibiotics and intravenous fluids. Continue off pressor support. Will follow up with Infectious Disease and [employer] for any further recommendations. 9. Nonoliguric acute kidney injury, toxic chronic kidney disease. Etiology is likely secondary acute tubular necrosis due to ischemic hypoperfusion and shock. Plan is to check urinalysis with microanalysis. Check urine electrolytes. Check renal ultrasound. Would otherwise continue current treatment plan, supportive care. Renally dose medications. Avoid nephrotoxins. 10. History of diastolic heart failure. Will continue to monitor. 11. History of chronic obstructive pulmonary disease. Continue current medical management. 12. Hypothyroidism. Continue Synthroid. 13. Status post left arm arthroplasty. 14. Left arm cellulitis. Continue current antibiotic regimen. Please note, I spent up to 30 minutes of critical care time with this patient. Please note, I discussed the case with the specialist as well as the patient's nephew. Dictated By: Edwin Pearce DO /aparna/chad /Document#: [id number]
[2017-02-26] MEDS: PANTOPRAZOLE 40 MG INJ IV SCH (17:37)
[2017-02-26] MEDS ORDERED: ATROPINE 1 MG/10 ML SYRINGE ONE (18:00)
[2017-02-26] MEDS ORDERED: EPINEPHrine 100 MCG/10 ML SYG IV ONE (18:00)
[2017-02-26 18:04] LABS: ANISOCYTOSIS 1+ (0-0); GIANT THROMBO% (M) 5 % (0-0); MONOCYTES % (M) 15 % (0-11); PLATELET ESTIMATE NORMAL; POLYCHROMASIA 1+ (0-0)
[2017-02-26 18:13] LABS: AADO2 Arterial 436.2 mmHg (7.0-24.0); Allen Test ACCEPTAB; Arterial Base Excess -14.4 mmol/L (-3.0-3); Arterial COHb 1.6 % (0.0-3.0); Arterial Fraction of Oxyhgb 87.9 % (93.0-99.0); Arterial HCO3 12.2 mmol/L (22.0-26.0); Arterial MetHb 0.3 % (0.0-1.5); MODE VENT - AC
[2017-02-26] MEDS: SODIUM BICARBONATE (IV ADD) 100 MEQ in DEXTROSE 5% 1,000 ML IV SCH (18:38)
[2017-02-26] MEDS ORDERED: NA BICARBONATE 8.4% 50 ML SYG IV STA (18:48)
[2017-02-26] MEDS ORDERED: NA BICARBONATE 8.4% 50 ML SYG ONE (18:50)
--- NOTE | 2017-02-26 18:56 | CONS ---
DATE OF ADMISSION: 02/26/2017 DATE OF CONSULTATION: 02/26/2017 REASON FOR CONSULTATION: This is an Infectious Disease consult for antibiotic management. HISTORY OF PRESENT ILLNESS: The patient is a 77-year-old female with a history of hypertension with numerous problems who comes into the emergency room in a critical condition and is being seen for antibiotic management. The patient is brought in with altered mental status and possible ST-segment elevated MA. She was found in bed this morning at her long term facility unresponsive. She has a fentanyl patch which was removed. She was given Narcan and was transported to the emergency room. PAST PROBLEMS: 1. Hypertension. 2. Coronary artery disease. 3. Chronic diastolic heart failure. 4. Dyslipidemia. 5. COPD. 6. Hypothyroidism. 7. DVT. 8. Pulmonary embolism post IVC filter on Xarelto. 9. Chronic pain. PAST SURGICAL HISTORY: For multiple arthroplasties, back surgeries, and bladder surgery, as well as IVC filter. PAST MEDICAL HISTORY: COPD, pulmonary emboli, hypertension, hyperlipidemia, and depression. LABORATORY: On admission, white count was 20.9, H and H of 13.4 and 44.6, and platelet count of 384,000. BUN and creatinine is 40/2.56. Lactic acid is 3.12. Troponin 0.45. IMAGING STUDIES: Chest x-ray shows no acute cardiopulmonary disease. ET tube and NG tube in place. Sternotomy wires and thoracic fixation hardware in place. She has a previous right arm PICC line which is been removed and she was begun on vancomycin. She received Zosyn. She is currently on norepinephrine and was on propofol. She is on vancomycin and Levaquin. The Zosyn was stopped. She was seen in consultation by Dr. Brooks who noted status post cardiopulmonary arrest, respiratory arrest, and leukocytosis. FAMILY HISTORY: Noncontributory. SOCIAL HISTORY: She does not smoke, drink, or abuse drugs. ALLERGIES: NONE TO PENICILLIN, SULFA, OR FOODS. MEDICATION: Per chart. REVIEW OF SYSTEMS: As per HPI. PHYSICAL EXAMINATION: GENERAL: Patient is an elderly appearing female who is obtunded, on a respirator. VITAL SIGNS: Stable. She is afebrile. SKIN: Without generalized rash. HEENT: Within normal limits. NECK: Supple. Lymph nodes nonpalpable. CHEST: Decreased breath sounds at the bases. HEART: Without murmur or gallop. ABDOMEN: Soft, nontender. Without organosplenomegaly or masses. EXTREMITIES: Without cyanosis, clubbing, or edema. GENITOURINARY: Rectal and genitalia exam is deferred. Arnold catheter in place. NEUROLOGIC: The patient is unresponsive and does not follow commands. IMPRESSION: As noted, she has an ET tube, NG tube and Arnold catheter. She is on vancomycin and Levaquin. She is on pressors. Blood culture, one blood culture was done. We will get some more blood cultures. A MRI safe screen and urine cultures were done. I will dictate my findings to the hospitalist and to Dr. Piedra. Dr. Piedra did a left heart catheterization with selective left and right coronary angiography. He did left ventricular angiography. She has no significant coronary artery disease. He would rule out pulmonary emboli. I will dictate my findings to hospitalist, Dr. Piedra, and Dr. Brooks. Dictated By: Jayjay Peters MD JD/aparna/shankar /Document#: [id number]
[2017-02-26 19:28] LABS: UR BACTERIA FEW /HPF (NONE SEEN); UR MUCUS MODERATE /HPF (NONE SEEN); UR RBC 7 /HPF (0-5); UR SQUAMOUS EPITHELIAL CELL FEW /HPF (FEW)
[2017-02-26 19:34] LABS: UR BILIRUBIN (Dip) NEGATIVE (NEGATIVE); UR CLARITY CLOUDY (CLEAR); UR COLOR AMBER (YELLOW); UR GLUCOSE (Dip) NEGATIVE (NEGATIVE); UR KETONES (Dip) NEGATIVE (NEGATIVE); UR SPECIFIC GRAVITY (Dip) 1.029 (1.003-1.030); UR TOTAL PROTEIN (Dip) 2+ mg/dl (NEGATIVE)
[2017-02-26 19:35] LABS: ADD UMIC YES; UR ASCORBIC ACID NEGATIVE (NEGATIVE); UR BLOOD (Dip) 2+ mg/dL (NEGATIVE); UR LEUKOCYTE ESTERASE (Dip) 3+ Leu/ul (NEGATIVE); UR NITRITE (Dip) NEGATIVE (NEGATIVE); UR UROBILINOGEN (Dip) NEGATIVE (NEGATIVE)
[2017-02-26] MEDS: MONTELUKAST 10 MG TAB PO SCH (21:14)
[2017-02-26] MEDS: ATORVASTATIN 10 MG TAB PO SCH (21:14)
[2017-02-26] MEDS: PHENYLephrine 40 MG in DEXTROSE 5% 496 ML IV SCH (21:17)
--- NOTE | 2017-02-26 21:20 | OPR ---
DATE OF OPERATION: 02/26/2017 PREOPERATIVE DIAGNOSIS: Renal failure. POSTOPERATIVE DIAGNOSIS: Renal failure. OPERATION PERFORMED: Left femoral hemodialysis catheter placement. SURGEON: Tez King MD ANESTHESIA: Local. OPERATIVE PROCEDURE: Complications , alternatives, and risks explained to the patient and the family. Consent obtained. The patient was placed in supine position, prepped and draped in usual sterile fashion. 1 percent lidocaine was used throughout the operation for local anesthesia. Access was gained in the left common femoral vein. Guidewire was advanced through without any difficulty. Subcutaneous tissue was dilated. A 25 cm dialysis catheter advanced through the guidewire and secured to skin using silk sutures. All ports of the catheter were aspirated and injected using heparinized saline solution. Patient tolerated the procedure well. Dictated By: Tez King MD /aparna/shankar /Document#: [id number]
[2017-02-26] MEDS: LEVETIRACETAM 500 MG (PMX) 100 ML IVPB SCH (22:28)
[2017-02-26] MEDS ORDERED: clonAZEPAM 0.5 MG TAB NGT PRN (23:30)
--- NOTE | 2017-02-26 23:33 | CONS ---
Date/Time of Note Date/Time of Note DATE: 02/26/17 TIME: 23:23 Assessment/Plan Assessment/Plan Chief Complaint/Hosp Course Not sedated, eyes closed, no response to voice, command, visual threat. Pupils 5 mm bilaterally, fixed, present corneals, present gag, no EOM on OCM. Flaccid extremities,no withdrawal to pain. Observed intermittently having generalized myoclonic jerks A/P: Anoxic encephalopathy. Post anoxic myoclonis. Will obtain EEG. Continue current Tx. Problems: Consultation Date/Type/Reason Admit Date/Time Type of Consultation: neurology Reason for Consultation anoxic encephalopathy Hx of Present Illness admitted from SNF with altered mental status, s/p CPA upon admission, x13 min. Intubated, unresponsive, not sedated, intermittent myoclonic movements. CT head WNL Psychological: confusion Past Medical History Medical History: congestive heart failure, coronary artery disease, hypothyroid , other (copd, dyslipidemia, chronic pain) Past Surgical History multiple lumbar spinal surgeries Social History Alcohol Use: none Smoking Status: Former smoker Drug Use: none Exam/Review of Systems Vital Signs Vitals Vital Signs Date Time Temp Pulse Resp B/P Pulse Ox O2 Delivery O2 Flow Rate FiO2 02/26/17 22:45 95 20 100 100 02/26/17 19:00 137/71 Mechanical Ventilator 02/26/17 16:00 98.4 02/26/17 06:20 15 Exam Head: atraumatic, normocephalic Respiratory: clear to auscultation Cardiovascular: regular rate and rhythm Results Result Diagram: 02/26/17 1620 02/26/17 1620 Results 24 hrs Laboratory Tests Test 02/26/17 06:50 02/26/17 09:17 02/26/17 09:30 02/26/17 10:33 Blood Gas Specimen Source Blood arterial Arterial Blood Date Drawn 02/26/2017 9:05:19 AM Arterial Blood pH (Temp corrected) 7.248 *L Arterial Blood pCO2 (Temp correct) 36.6 Arterial Blood pO2 (Temp corrected) 133.6 H Arterial Blood HCO3 15.6 L Arterial Blood Base Excess -10.8 L Arterial Blood Oxygen Saturation 98.6 Jimbo Test N/A Arterial Blood Gas Puncture Site A-Line Arterial Blood Carboxyhemoglobin 1.0 Arterial Blood Methemoglobin 0.3 Blood Gas A-a O2 Differential 542.8 H Oxyhemoglobin Percent 97.3 Total Hemoglobin 14.3 Blood Gas Temperature 37.0 Blood Gas Respiration Rate 16.0 Blood Gas Actual Respiration Rate 16 Blood Gas Modality VENT - AC FiO2 100.0 Blood Gas Tidal Volume 550.0 Blood Gas Low PEEP Setting 5.0 Blood Gas Critical Value Read Back E JAMILA JOAQUIN Blood Gas Notified Whom TM Blood Gas Notified Time 02/26/2017 9:22:21 AM White Blood Count 20.9 #H Red Blood Count 4.89 # Hemoglobin 13.4 # Hematocrit 44.6 # Mean Corpuscular Volume 91.2 Mean Corpuscular Hemoglobin 27.4 L Mean Corpuscular Hemoglobin Concent 30.0 L Red Cell Distribution Width 18.2 H Platelet Count 384 # Mean Platelet Volume 10.3 Neutrophils % 89.9 H Lymphocytes % 2.3 L Monocytes % 7.1 Eosinophils % 0.0 Basophils % 0.1 Nucleated Red Blood Cells % 0.0 Neutrophils # 18.8 H Lymphocytes # 0.5 L Monocytes # 1.5 H Eosinophils # 0.0 Basophils # 0.0 Nucleated Red Blood Cells # 0.0 Prothrombin Time 16.7 H Prothrombin Time Ratio 1.3 INR International Normalized Ratio 1.34 Activated Partial Thromboplast Time 28.2 Sodium Level 144 Potassium Level 5.0 Chloride Level 105 Carbon Dioxide Level 21 Anion Gap 23 H Blood Urea Nitrogen 40 H Creatinine 2.56 H Glucose Level 156 Calcium Level 7.8 L Phosphorus Level 7.5 H Magnesium Level 2.4 Total Bilirubin 0.0 L Direct Bilirubin 0.00 Indirect Bilirubin 0.0 Aspartate Amino Transf (AST/SGOT) 79 H Alanine Aminotransferase (ALT/SGPT) 42 Alkaline Phosphatase 96 Creatine Kinase 166 Creatine Kinase Index 3.5 Creatinine Kinase MB (Mass) 5.85 H Troponin I 0.450 *H Total Protein 6.5 Albumin 3.4 Globulin 3.10 Albumin/Globulin Ratio 1.09 Urine Color LIZABETH Urine Clarity CLOUDY Urine pH 6.0 Urine Specific [place] 1.029 Urine Ketones NEGATIVE Urine Nitrite NEGATIVE Urine Bilirubin NEGATIVE Urine Urobilinogen NEGATIVE Urine Leukocyte Esterase 3+ H Urine Microscopic RBC 7 H Urine Microscopic WBC > 182 H Urine Squamous Epithelial Cells FEW Urine Bacteria FEW A Urine Mucus MODERATE Urine Hemoglobin 2+ H Urine Glucose NEGATIVE Urine Total Protein 2+ Lactic Acid Level 3.1 *H Test 02/26/17 16:20 02/26/17 17:30 White Blood Count 19.5 H Red Blood Count 5.05 Hemoglobin 13.8 Hematocrit 46.1 Mean Corpuscular Volume 91.3 Mean Corpuscular Hemoglobin 27.3 L Mean Corpuscular Hemoglobin Concent 29.9 L Red Cell Distribution Width 18.4 H Platelet Count 383 Mean Platelet Volume 10.4 Neutrophils % Segmented Neutrophils % (Manual) 69 Band Neutrophils % (Manual) 9 H Lymphocytes % Lymphocytes % (Manual) 7 L Monocytes % Monocytes % (Manual) 15 H Eosinophils % Basophils % Nucleated Red Blood Cells % 0.0 Neutrophils # Neutrophils # (Manual) 13.8 H Band Neutrophils # 1.7 H Absolute Lymphocytes (Manual) 1.3 Lymphocytes # Monocytes # Absolute Monocytes (Manual) 2.9 H Eosinophils # Basophils # Nucleated Red Blood Cells # Smudge Cells % 4 H Thrombocytosis 5 H Platelet Estimate NORMAL Polychromasia 1+ Anisocytosis 1+ Sodium Level 144 Potassium Level 5.7 H Chloride Level 106 Carbon Dioxide Level 18 L Anion Gap 26 H Blood Urea Nitrogen 45 H Creatinine 2.88 H Glucose Level 129 Lactic Acid Level 5.8 *H Calcium Level 7.6 L Blood Gas Specimen Source Blood arterial Arterial Blood Date Drawn 02/26/2017 6:00:38 PM Arterial Blood pH (Temp corrected) 7.205 *L Arterial Blood pCO2 (Temp correct) 31.6 L Arterial Blood pO2 (Temp corrected) 65.0 L Arterial Blood HCO3 12.2 L Arterial Blood Base Excess -14.4 L Arterial Blood Oxygen Saturation 89.6 L Jimbo Test ACCEPTAB Arterial Blood Gas Puncture Site Right Radial Arterial Blood Carboxyhemoglobin 1.6 Arterial Blood Methemoglobin 0.3 Blood Gas A-a O2 Differential 436.2 H Oxyhemoglobin Percent 87.9 L Total Hemoglobin 15.0 Blood Gas Temperature 37.0 Blood Gas Respiration Rate 14.0 Blood Gas Actual Respiration Rate 19 Blood Gas Modality VENT - AC FiO2 75.0 Blood Gas Tidal Volume 550.0 Blood Gas Low PEEP Setting 5.0 Blood Gas Critical Value Read Back E JEMAL MARINO Blood Gas Notified Whom MISTY Blood Gas Notified Time 02/26/2017 6:10:19 PM Medications Medications Current Medications Acetaminophen (Tylenol Tab) 650 mg Q4H PRN PO PAIN AND OR ELEVATED TEMP; Start 02/26/17 at 09:30 Docusate Sodium (Colace) 100 mg DAILY PO ; Start 02/27/17 at 09:00 Montelukast Sodium (Singulair) 10 mg QHS PO Last administered on 02/26/17 21:14 ; Admin Dose 10 MG; Start 02/26/17 at 21:00 Atorvastatin Calcium (Lipitor) 10 mg QHS PO Last administered on 02/26/17 21:14 ; Admin Dose 10 MG; Start 02/26/17 at 21:00 Ondansetron HCl (Zofran Inj) 4 mg Q4H PRN IV NAUSEA AND/OR VOMITING; Start 02/26 at 09:30 Pantoprazole 40 mg 40 mg BID@06,18 IV Last administered on 02/26/17 17:37; Admin Dose 40 MG; Start 02/26/17 at 18:00 Norepinephrine 16 mg/Dextrose 500 ml @ 1.875 mls/ hr TITRATE IV Last administered on 02/26/17 15:32; Admin Dose 45 MLS/HR; Start 02/26/17 at 11:30 Levetiracetam 100 ml @ 400 mls/hr Q12 IVPB Last administered on 02/26/17 22:28 ; Admin Dose 400 MLS/HR; Start 02/26/17 at 21:00 Valproate Sodium 500 mg/Sodium Chloride 55 ml @ 55 mls/hr Q8 IVPB Last administered on 02/26/17 22:28; Admin Dose 55 MLS/HR; Start 02/26/17 at 14:00 Phenylephrine HCl 40 mg/Dextrose 500 ml @ 75 mls/hr TITRATE IV Last administered on 02/26/17 21:17; Admin Dose 90 MLS/HR; Start 02/26/17 at 13:30 Levofloxacin/ Dextrose 150 ml @ 100 mls/hr Q48H IVPB Last administered on 15:18; Admin Dose 100 MLS/HR; Start 02/26/17 at 14:00 Vancomycin HCl 750 mg/Sodium Chloride 150 ml @ 75 mls/hr Q48H IVPB ; Start 02/28 at 12:00 Sodium Bicarbonate/ Dextrose (Na Bicarb/D5W) 1,100 ml @ 100 mls/hr Q11H IV Last administered on 02/26/17 18:38; Admin Dose 100 MLS/HR; Start 02/26/17 at 18: 30 Clonazepam (Klonopin) 1 mg TID PRN NGT JERKING MOVEMENTS; Start 02/26/17 at 23: 30; Status ARCENIO GAMEZ MD Feb 26, 2017 23:32
[2017-02-27] VITALS (93 sets, daily range): BP systolic 72–140; BP diastolic 36–125; PULSE 90–119; RESP 14–53
[2017-02-27] MEDS: PHENYLephrine 40 MG in DEXTROSE 5% 496 ML IV SCH (03:26)
[2017-02-27 05:41] LABS: ABNORMAL IP MESSAGE 1; HEMOGLOBIN 12.8 g/dl (12.0-16.0); MEAN CORPUSCULAR HEMOGLOBIN 27.1 pg (29.0-33.0); MEAN CORPUSCULAR HGB CONC 30.5 g/dl (32.0-37.0); MEAN PLATELET VOLUME 11.1 fl (7.4-10.4); NUCLEATED RED BLOOD CELLS% 0.1 /100WBC (0.0-0.0); PLATELET COUNT 265 10^3/UL (140-415); RED BLOOD COUNT 4.72 10^6/ul (4.20-5.40); RED CELL DISTRIBUTION WIDTH 18.6 % (11.5-14.5); WHITE BLOOD COUNT 18.3 10^3/ul (4.8-10.8)
[2017-02-27 05:50] LABS: POSITIVE DIFF @See below
[2017-02-27] MEDS: SODIUM BICARBONATE (IV ADD) 100 MEQ in DEXTROSE 5% 1,000 ML IV SCH (05:55)
[2017-02-27] MEDS: PANTOPRAZOLE 40 MG INJ IV SCH ×2 (05:59→18:09)
[2017-02-27] MEDS: VALPROATE INJ 500 MG in SOD CHLORIDE 0.9% 50 ML IVPB SCH ×3 (05:59→21:25)
[2017-02-27 06:37] LABS: CALCIUM 6.5 mg/dl (8.4-10.2); CREATININE 2.47 mg/dl (0.44-1.00); MAGNESIUM 2.1 mg/dl (1.7-2.5); PHOSPHORUS 4.4 mg/dl (2.5-4.9); POTASSIUM 3.9 mmol/L (3.5-5.1)
[2017-02-27 07:35] LABS: AADO2 Arterial 590.7 mmHg (7.0-24.0); Allen Test ACCEPTAB; Arterial Base Excess -5.5 mmol/L (-3.0-3); Arterial COHb 1.4 % (0.0-3.0); Arterial Fraction of Oxyhgb 96.3 % (93.0-99.0); Arterial HCO3 16.6 mmol/L (22.0-26.0); Arterial MetHb 0.3 % (0.0-1.5); Arterial Total Hemglobin 13.5 g/dl (12.0-18.0); MODE VENT - AC
--- NOTE | 2017-02-27 07:39 | PN ---
Date/Time of Note Date/Time of Note DATE: 02/27/17 TIME: 07:30 Assessment/Plan VTE Prophylaxis VTE Prophylaxis Intervention: other Lines/Catheters IV Catheter Type (from Nrs): Central Line Central line still needed: Yes Urinary Cath still in place: Yes Reason Cath still needed: other (indicate) Assessment/Plan Assessment/Plan 1. cardiopulm arrest 2. abnormal ECG C/ W STEMI but no significant CAD on macrina angio done by Dr Hall 3. hx PADD 4. Severe encephalopathy and probably anoxic brain injury 5. hypoxemic resp failure: vent dependent. 6. severe sepsis and septic shock 7. renal failure. 8. hx DVT/ PE: ON XARELTO prior to admission 9. hx COPD 10. hx memory impairment 11. possible GI bleed REC: cont vent support already on levophed drip and neosynephrine drip will add dopamine drip abx as per IM F/U with neurology rec. HD as per renal. will check echo cont ICU care more than 40 min of critical care time was spent in management and treatment of this critically ill pt, excluding any procedures. Subjective 24 Hr Interval Summary Free Text/Dictation CARDIOLOGY FOLLOW UP NOTE/ Critical care note d/w staff and physicians. rhythm was reviewed. PT remains in NSR/ sinus tachycardia. she is still hypotensive and max levophed and neosynephrine drip in ICU she remains intubated and nonverbal. OBJECTIVE: GEN: intubated on vent nonresponsive HEENT: NC/AT. pupils are dilated. s/p NG tube in place with coffee ground emesis. Neck: no stridor CV: RRR systolic murmur. pulm: no wheezes anteriorly but + rhonchi. GI: soft NT no rebound extremity: + LE edema neuro: no response to verbal or painful stimuli. psych: unable to assess Exam/Review of Systems Vital Signs Vitals Vital Signs Date Time Temp Pulse Resp B/P Pulse Ox O2 Delivery O2 Flow Rate FiO2 02/27/17 06:30 102 16 84/63 95 02/27/17 06:00 98.8 02/27/17 05:00 100 02/27/17 00:00 Mechanical Ventilator 02/26/17 06:20 15 Intake and Output 02/26/17 02/26/17 02/27/17 15:00 23:00 07:00 Intake Total 1015 ml 1884 ml 1396 ml Output Total 35 ml 640 ml 410 ml Balance 980 ml 1244 ml 986 ml Results Result Diagram: 02/27/170 02/27/170 Results 24 hrs Laboratory Tests Test 02/26/17 09:17 02/26/17 09:30 02/26/17 10:33 02/26/17 16:20 White Blood Count 20.9 #H 19.5 H Red Blood Count 4.89 # 5.05 Hemoglobin 13.4 # 13.8 Hematocrit 44.6 # 46.1 Mean Corpuscular Volume 91.2 91.3 Mean Corpuscular Hemoglobin 27.4 L 27.3 L Mean Corpuscular Hemoglobin Concent 30.0 L 29.9 L Red Cell Distribution Width 18.2 H 18.4 H Platelet Count 384 # 383 Mean Platelet Volume 10.3 10.4 Neutrophils % 89.9 H Lymphocytes % 2.3 L Monocytes % 7.1 Eosinophils % 0.0 Basophils % 0.1 Nucleated Red Blood Cells % 0.0 0.0 Neutrophils # 18.8 H Lymphocytes # 0.5 L Monocytes # 1.5 H Eosinophils # 0.0 Basophils # 0.0 Nucleated Red Blood Cells # 0.0 Prothrombin Time 16.7 H Prothrombin Time Ratio 1.3 INR International Normalized Ratio 1.34 Activated Partial Thromboplast Time 28.2 Sodium Level 144 144 Potassium Level 5.0 5.7 H Chloride Level 105 106 Carbon Dioxide Level 21 18 L Anion Gap 23 H 26 H Blood Urea Nitrogen 40 H 45 H Creatinine 2.56 H 2.88 H Glucose Level 156 129 Calcium Level 7.8 L 7.6 L Phosphorus Level 7.5 H Magnesium Level 2.4 Total Bilirubin 0.0 L Direct Bilirubin 0.00 Indirect Bilirubin 0.0 Aspartate Amino Transf (AST/SGOT) 79 H Alanine Aminotransferase (ALT/SGPT) 42 Alkaline Phosphatase 96 Creatine Kinase 166 Creatine Kinase Index 3.5 Creatinine Kinase MB (Mass) 5.85 H Troponin I 0.450 *H Total Protein 6.5 Albumin 3.4 Globulin 3.10 Albumin/Globulin Ratio 1.09 Urine Color LIZABETH Urine Clarity CLOUDY Urine pH 6.0 Urine Specific [place] 1.029 Urine Ketones NEGATIVE Urine Nitrite NEGATIVE Urine Bilirubin NEGATIVE Urine Urobilinogen NEGATIVE Urine Leukocyte Esterase 3+ H Urine Microscopic RBC 7 H Urine Microscopic WBC > 182 H Urine Squamous Epithelial Cells FEW Urine Bacteria FEW A Urine Mucus MODERATE Urine Hemoglobin 2+ H Urine Random Creatinine 37.14 Urine Random Sodium 56 Urine Glucose NEGATIVE Urine Total Protein 165.0 H Lactic Acid Level 3.1 *H 5.8 *H Segmented Neutrophils % (Manual) 69 Band Neutrophils % (Manual) 9 H Lymphocytes % (Manual) 7 L Monocytes % (Manual) 15 H Neutrophils # (Manual) 13.8 H Band Neutrophils # 1.7 H Absolute Lymphocytes (Manual) 1.3 Absolute Monocytes (Manual) 2.9 H Smudge Cells % 4 H Thrombocytosis 5 H Platelet Estimate NORMAL Polychromasia 1+ Anisocytosis 1+ Test 02/26/17 17:30 02/27/17 04:40 02/27/17 06:42 Blood Gas Specimen Source Blood arterial Arterial Blood Date Drawn 02/26/2017 6:00:38 PM Arterial Blood pH (Temp corrected) 7.205 *L Arterial Blood pCO2 (Temp correct) 31.6 L Arterial Blood pO2 (Temp corrected) 65.0 L Arterial Blood HCO3 12.2 L Arterial Blood Base Excess -14.4 L Arterial Blood Oxygen Saturation 89.6 L Jimbo Test ACCEPTAB Arterial Blood Gas Puncture Site Right Radial Arterial Blood Carboxyhemoglobin 1.6 Arterial Blood Methemoglobin 0.3 Blood Gas A-a O2 Differential 436.2 H Oxyhemoglobin Percent 87.9 L Total Hemoglobin 15.0 Blood Gas Temperature 37.0 Blood Gas Respiration Rate 14.0 Blood Gas Actual Respiration Rate 19 Blood Gas Modality VENT - AC FiO2 75.0 Blood Gas Tidal Volume 550.0 Blood Gas Low PEEP Setting 5.0 Blood Gas Critical Value Read Back E JEMAL MARINO Blood Gas Notified Whom [place] Blood Gas Notified Time 02/26/2017 6:10:19 PM White Blood Count 18.3 H Red Blood Count 4.72 Hemoglobin 12.8 Hematocrit 42.0 Mean Corpuscular Volume 89.0 Mean Corpuscular Hemoglobin 27.1 L Mean Corpuscular Hemoglobin Concent 30.5 L Red Cell Distribution Width 18.6 H Platelet Count 265 # Mean Platelet Volume 11.1 H Neutrophils % Lymphocytes % Monocytes % Eosinophils % Basophils % Nucleated Red Blood Cells % 0.1 H Neutrophils # Lymphocytes # Monocytes # Eosinophils # Basophils # Nucleated Red Blood Cells # Sodium Level 138 Potassium Level 3.9 Chloride Level 93 #L Carbon Dioxide Level 25 Anion Gap 24 H Blood Urea Nitrogen 41 H Creatinine 2.47 H Glucose Level 287 #H Calcium Level 6.5 L Phosphorus Level 4.4 # Magnesium Level 2.1 Bedside Glucose 147 Medications Medications Current Medications Acetaminophen (Tylenol Tab) 650 mg Q4H PRN PO PAIN AND OR ELEVATED TEMP; Start 02/26/17 at 09:30 Docusate Sodium (Colace) 100 mg DAILY PO ; Start 02/27/17 at 09:00 Montelukast Sodium (Singulair) 10 mg QHS PO Last administered on 02/26/17 21:14 ; Admin Dose 10 MG; Start 02/26/17 at 21:00 Atorvastatin Calcium (Lipitor) 10 mg QHS PO Last administered on 02/26/17 21:14 ; Admin Dose 10 MG; Start 02/26/17 at 21:00 Ondansetron HCl (Zofran Inj) 4 mg Q4H PRN IV NAUSEA AND/OR VOMITING; Start 02/26 at 09:30 Pantoprazole 40 mg 40 mg BID@06,18 IV Last administered on 02/27/17 05:59; Admin Dose 40 MG; Start 02/26/17 at 18:00 Norepinephrine 16 mg/Dextrose 500 ml @ 1.875 mls/ hr TITRATE IV Last administered on 02/27/17 01:15; Admin Dose 56.25 MLS/HR; Start 02/26/17 at 11:30 Levetiracetam 100 ml @ 400 mls/hr Q12 IVPB Last administered on 02/26/17 22:28 ; Admin Dose 400 MLS/HR; Start 02/26/17 at 21:00 Valproate Sodium 500 mg/Sodium Chloride 55 ml @ 55 mls/hr Q8 IVPB Last administered on 02/27/17 05:59; Admin Dose 55 MLS/HR; Start 02/26/17 at 14:00 Phenylephrine HCl 40 mg/Dextrose 500 ml @ 75 mls/hr TITRATE IV Last administered on 02/27/17 03:26; Admin Dose 90 MLS/HR; Start 02/26/17 at 13:30 Levofloxacin/ Dextrose 150 ml @ 100 mls/hr Q48H IVPB Last administered on 15:18; Admin Dose 100 MLS/HR; Start 02/26/17 at 14:00 Vancomycin HCl 750 mg/Sodium Chloride 150 ml @ 75 mls/hr Q48H IVPB ; Start 02/28 at 12:00 Sodium Bicarbonate/ Dextrose (Na Bicarb/D5W) 1,100 ml @ 100 mls/hr Q11H IV Last administered on 02/27/17 05:55; Admin Dose 100 MLS/HR; Start 02/26/17 at 18: 30 Clonazepam (Klonopin) 1 mg TID PRN NGT JERKING MOVEMENTS Last administered on 03:16; Admin Dose 1 MG; Start 02/26/17 at 23:30 FARHAN SCHULZ MD Feb 27, 2017 07:39
[2017-02-27] MEDS: DOPamine-D5W 1.6 MG/ML 250 ML IV SCH ×2 (08:01→22:49)
[2017-02-27 08:20] LABS: CK-MB 4.45 ng/ml (0.0-2.4)
[2017-02-27 08:22] LABS: TROPONIN-I 1.37 ng/ml (0.00-0.12)
[2017-02-27] MEDS: SOD CHLORIDE 0.9% 1,000 ML IV SCH ×2 (08:40→18:10)
[2017-02-27 08:46] LABS: ANISOCYTOSIS 1+ (0-0); MICROCYTOSIS 1+ (0-0); MONOCYTES % (M) 7 % (0-11); PLATELET ESTIMATE NORMAL; POIKILOCYTOSIS 3+ (0-0); POLYCHROMASIA 3+ (0-0)
--- NOTE | 2017-02-27 08:56 | RADRPT ---
PROCEDURE: Chest radiograph. CLINICAL INDICATION: Intubated. ST elevation RI. TECHNIQUE: Single portable frontal view. COMPARISON: Radiograph 02/26/2017. FINDINGS: The endotracheal tube terminates 2.5 cm above the steven. The orogastric tube courses below the diaphragm. Low lung volumes. No pleural effusion or focal parenchymal opacity. The cardiomediastinal silhouette is normal. No suspicious bone lesion. Posterior instrumented fusion hardware of the thoracic and lumbar spine is partially visualized. IMPRESSION: Support lines and tubes in expected position. RPTAT: PP Physician Emily Date Time Electronically viewed and signed by Physician Emily on 02/27/2017 08:55 LG/
[2017-02-27] MEDS ORDERED: PANTOPRAZOLE (EC) 40 MG TAB PO SCH (09:00)
[2017-02-27] MEDS: PHENYLephrine 160 MG in DEXTROSE 5% 484 ML IV SCH ×2 (09:36→18:11)
[2017-02-27] MEDS: NORepinephrine 32 MG in DEXTROSE 5% 218 ML IV SCH (09:37)
--- NOTE | 2017-02-27 09:37 | RADRPT ---
Echocardiogram Report Patient Name: MERON LUND Gender: Female Date: 1940 Study Date: 27-Feb-2017 [employer] Sales Representative: Sabas Garcia RDCS Location: 111 Ref. Physician: FARHAN COLE Quality: Technically Difficult Study Procedures: Transthoracic echocardiogram with complete 2D, M-Mode, and doppler examination. Indications: Cardiac Arrest. 2D/M Mode Doppler Measurement Value Normal Ranges Measurement Value Normal Ranges LVIDd 2D 3.3 3.5 - 5.6 cm AV Peak Juan David 1.4 m/sec LVIDs 2D 2.2 2.1 - 4.1 cm AV Peak PG 8.2 mmHg LVPWd 2D 1.0 0.6 - 1.1 cm LVOT Peak Juan David 0.8 m/sec IVSd 2D 1.1 0.6 - 1.1 cm LVOT Peak PG 2.7 mmHg AoR Diam 2D 3.0 2.0 - 3.7 cm MV E Peak Juan David 0.3 m/sec EDV 2D 44.9 cm3 MV A Peak Juan David 0.4 m/sec ESV 2D 10.3 cm3 MV E/A 0.7 LA Dimen 2D 3.5 2.3 - 4.0 cm MV Decel Time 173 msec MV Decel [place] 2 MV E/A 0.7 TR Peak Juan David 2.2 m/sec TR Peak PG 19.7 mmHg RVSP 23.0 mmHg Findings Left Ventricle: Lower limits of normal systolic function. Normal left ventricular cavity size. Mild concentric left ventricular hypertrophy. Ejection fraction is visually estimated at 45 55 %. Abnormal Diastolic Function. Right Ventricle: Normal right ventricular systolic function. Not well visualized. Left Atrium: The left atrium is normal in size. Right Atrium: Not well visualized. Mitral Valve: Normal appearance and function of the mitral valve with trace physiologic regurgitation. Aortic Valve: No significant aortic stenosis or insufficiency. Aortic cusps appear mildly calcified. Tricuspid Valve: Tricuspid valve not well visualized. Estimated peak PA systolic pressure 30 mmHg. There is mild tricuspid regurgitation. Pulmonic Valve: Pulmonic valve not well visualized. Pericardium: Normal pericardium with no significant pericardial effusion. Aorta: Normal aortic root. IVC: Normal IVC with respiratory collapse, however patient on ventilator. Conclusions 1.Lower limits of normal systolic function. Normal left ventricular cavity size. Mild concentric left ventricular hypertrophy. Ejection fraction is visually estimated at 45 -55 %. Abnormal Diastolic Function. 2.Normal appearance and function of the mitral valve with trace physiologic regurgitation. 3.No significant aortic stenosis or insufficiency. Aortic cusps appear mildly calcified. 4.Tricuspid valve not well visualized. Estimated peak PA systolic pressure 30 mmHg. There is mild tricuspid regurgitation. 5.suboptimal study. Electronically Signed By: Farhan Cole 27-Feb-2017 09:36:12 -0700 Patient Name: MERON LUND Study Date: 27-Feb-2017 [id number]
[2017-02-27] MEDS: LEVOTHYROXINE 100 MCG TAB PO SCH (09:38)
[2017-02-27] MEDS: LEVETIRACETAM 500 MG (PMX) 100 ML IVPB SCH ×2 (09:42→21:26)
[2017-02-27] MEDS: DOCUSATE SODIUM 100 MG CAP PO SCH (09:42)
--- NOTE | 2017-02-27 10:16 | PN ---
DATE: 02/27/2017 SUBJECTIVE DATA: The patient remains critically ill on pressor support. The patient had emergent hemodialysis yesterday due to hypokalemia. The patient neurologically has minimal responses. Pupils are fixed and dilated. The patient continues to have myoclonic jerks. She was seen by Neurology yesterday. No other events noted. OBJECTIVE DATA: VITAL SIGNS: Blood pressure is 84/63, respirations 16, pulse 102, temperature 98.8. HEENT: Head is normocephalic. Pupils are fixed with minimal response. NECK: Supple. HEART: Regular rate. LUNGS: Diminished breath sounds at the base. Positive rhonchi. ABDOMEN: Soft, nontender to palpation. No rebound or guarding. EXTREMITIES: Negative for clubbing or cyanosis, no edema. DERMATOLOGIC: Clean. No rashes. MUSCULOSKELETAL: No joint effusion. NEUROLOGIC: The patient remains obtunded. MEDICATIONS: Reviewed. LABORATORY AND DIAGNOSTIC DATA: Sodium 138, potassium 3.9, BUN 41, creatinine 2.47. White count 18.3, hemoglobin 10.2, hematocrit 42.0. Platelet count is 265. The patient's cultures are pending. ASSESSMENT AND PLAN: 1. Status post cardiac arrest. Status post PEA. Underlying etiology is unclear. Possible arrhythmia versus pulmonary versus other. The patient is status post cardiac cath which showed normal coronaries. If the patient is on broad-spectrum antibiotics. Treat presumed sepsis. At this point, continue to monitor. Follow up with Cardiology for recommendations. 2. Shock, presumed septic. The patient has an elevated white count. Underlying source unclear, possible pneumonia versus other. The patient is on broad-spectrum antibiotics, IV fluids, IV pressors. Will continue current treatment plan. Follow up with infectious disease for further antibiotic recommendations. Monitor closely. 3. Acute kidney injury. Etiology secondary to acute tubular necrosis due to shock septic and acute kidney injury. The patient was started on hemodialysis yesterday for hypokalemia. At this point, will hold hemodialysis. Monitor renal function and urinary output closely. 4. Acute encephalopathy with possible anoxic injury. The patient's neurologic exam shows fix in pupils with minimal response. The patient is pending EEG today. Appreciate Neurology's evaluation. CT scan was reviewed and was negative. 5. Myoclonic jerks. Concerning for anoxic injury. Keppra and Klonopin. 6. Acute gastrointestinal bleed. The patient continues to have hematemesis. GI evaluated the patient. Anticoagulation on hold pending possible EGD. 7. Ventilatory-dependent respiratory failure. Vent settings reviewed. ABGs reviewed. Continue to monitor. 8. History of diastolic failure. Continue to monitor. 9. History of deep vein thrombosis/pulmonary embolus, patient status post inferior vena cava (IVC) filter. Will continue to monitor, holding anticoagulation setting of upper gastrointestinal bleed. 10. Chronic obstructive pulmonary disease. Continue medical management. 11. Hypothyroidism. Continue Synthroid. 12. Status post left arm arthroplasty. 13. Metabolic alkalemia. Will discontinue patient's bicarbonate drip and monitor. Please note, I spent over 35 minutes of critical care time with this patient. Dictated By: Edwin Pearce DO /[email or web address]/monty /Document#: [id number]
--- NOTE | 2017-02-27 11:40 | CONS ---
Date/Time of Note Date/Time of Note DATE: 02/27/17 TIME: 11:37 Assessment/Plan Assessment/Plan Additional Assessment/Plan Ventilator setting; AC of 14, tidal volume 550, PEEP of 5, 100% FiO2. Chest x-ray was reviewed from today which is showing patchy infiltrates bilaterally. Assessment and recommendations; 1. Patient admitted with cardiac arrest with prolonged CPR. 2. Likely anoxic brain injury. 3. History of other comorbidities including history of DVT and PE as well as prior Clara filter placement. 4. Renal insufficiency. 5. Ongoing sepsis. Next Continue current supportive care. Prognosis is very poor. Consultation Date/Type/Reason Admit Date/Time Feb 26, 2017 at 11:06 Initial Consult Date 02/26/17 Type of Consultation: Pulmonary/critical care 24 HR Interval Summary Free Text/Dictation Patient condition remains critical. Remains unresponsive. Remains hemodynamically unstable requiring combination Levophed and dopamine drips. No overt seizure activity noted. General exam; elderly woman, orally intubated, unresponsive, currently in no distress. Exam/Review of Systems Vital Signs Vitals Vital Signs Date Time Temp Pulse Resp B/P Pulse Ox O2 Delivery O2 Flow Rate FiO2 02/27/17 06:30 102 16 84/63 95 02/27/17 06:00 98.8 02/27/17 05:00 100 02/27/17 00:00 Mechanical Ventilator 02/26/17 06:20 15 Intake and Output 02/26/17 02/26/17 02/27/17 15:00 23:00 07:00 Intake Total 1015 ml 1884 ml 1396 ml Output Total 35 ml 640 ml 410 ml Balance 980 ml 1244 ml 986 ml Exam HEENT exam; supple neck, no JVD. No lymphadenopathy. Midline trachea. No thyromegaly. Patient is edentulous. Orally intubated. Chest exam; diminished breath sounds bilaterally. S1-S2 audible, no murmurs. Regular rhythm. Abdomen exam; soft, no organomegaly. Bowel sounds are very sluggish. Extremity exam; no peripheral edema. Patient has a multiple ecchymosis involving all 4 extremities. CLAY ROASTER exam; patient remains unresponsive. Results Result Diagram: 02/27/17 0440 02/27/17 0440 Results 24 hrs Laboratory Tests Test 02/26/17 16:20 02/26/17 17:30 02/27/17 04:40 02/27/17 06:42 White Blood Count 19.5 H 18.3 H Red Blood Count 5.05 4.72 Hemoglobin 13.8 12.8 Hematocrit 46.1 42.0 Mean Corpuscular Volume 91.3 89.0 Mean Corpuscular Hemoglobin 27.3 L 27.1 L Mean Corpuscular Hemoglobin Concent 29.9 L 30.5 L Red Cell Distribution Width 18.4 H 18.6 H Platelet Count 383 265 # Mean Platelet Volume 10.4 11.1 H Neutrophils % Segmented Neutrophils % (Manual) 69 51 Band Neutrophils % (Manual) 9 H 32 H Lymphocytes % Lymphocytes % (Manual) 7 L 10 L Monocytes % Monocytes % (Manual) 15 H 7 Eosinophils % Basophils % Nucleated Red Blood Cells % 0.0 0.1 H Neutrophils # Neutrophils # (Manual) 13.8 H 10.4 H Band Neutrophils # 1.7 H 5.8 H Absolute Lymphocytes (Manual) 1.3 1.8 Lymphocytes # Monocytes # Absolute Monocytes (Manual) 2.9 H 1.2 H Eosinophils # Basophils # Nucleated Red Blood Cells # Smudge Cells % 4 H 5 H Thrombocytosis 5 H Platelet Estimate NORMAL NORMAL Polychromasia 1+ 3+ Anisocytosis 1+ 1+ Sodium Level 144 138 Potassium Level 5.7 H 3.9 Chloride Level 106 93 #L Carbon Dioxide Level 18 L 25 Anion Gap 26 H 24 H Blood Urea Nitrogen 45 H 41 H Creatinine 2.88 H 2.47 H Glucose Level 129 287 #H Lactic Acid Level 5.8 *H Calcium Level 7.6 L 6.5 L Blood Gas Specimen Source Blood arterial Arterial Blood Date Drawn 02/26/2017 6:00:38 PM Arterial Blood pH (Temp corrected) 7.205 *L Arterial Blood pCO2 (Temp correct) 31.6 L Arterial Blood pO2 (Temp corrected) 65.0 L Arterial Blood HCO3 12.2 L Arterial Blood Base Excess -14.4 L Arterial Blood Oxygen Saturation 89.6 L Jimbo Test ACCEPTAB Arterial Blood Gas Puncture Site Right Radial Arterial Blood Carboxyhemoglobin 1.6 Arterial Blood Methemoglobin 0.3 Blood Gas A-a O2 Differential 436.2 H Oxyhemoglobin Percent 87.9 L Total Hemoglobin 15.0 Blood Gas Temperature 37.0 Blood Gas Respiration Rate 14.0 Blood Gas Actual Respiration Rate 19 Blood Gas Modality VENT - AC FiO2 75.0 Blood Gas Tidal Volume 550.0 Blood Gas Low PEEP Setting 5.0 Blood Gas Critical Value Read Back E JEMAL MARINO Blood Gas Notified Whom [place] Blood Gas Notified Time 02/26/2017 6:10:19 PM Poikilocytosis 3+ Microcytosis 1+ Macrocytosis 1+ Phosphorus Level 4.4 # Magnesium Level 2.1 Bedside Glucose 147 Test 02/27/17 07:30 02/27/17 07:36 02/27/17 07:40 Blood Gas Specimen Source Blood arterial Arterial Blood Date Drawn 02/27/2017 7:25:47 AM Arterial Blood pH (Temp corrected) 7.453 H Arterial Blood pCO2 (Temp correct) 24.2 L Arterial Blood pO2 (Temp corrected) 98.1 H Arterial Blood HCO3 16.6 L Arterial Blood Base Excess -5.5 L Arterial Blood Oxygen Saturation 98.0 Jimbo Test ACCEPTAB Arterial Blood Gas Puncture Site Left Radial Arterial Blood Carboxyhemoglobin 1.4 Arterial Blood Methemoglobin 0.3 Blood Gas A-a O2 Differential 590.7 H Oxyhemoglobin Percent 96.3 Total Hemoglobin 13.5 Blood Gas Temperature 37.0 Blood Gas Respiration Rate 14.0 Blood Gas Actual Respiration Rate 18 Blood Gas Modality VENT - AC FiO2 100.0 Blood Gas Tidal Volume 550.0 Blood Gas Low PEEP Setting 5.0 Blood Gas Notified Whom TM Blood Gas Notified Time 02/27/2017 7:35:11 AM Lactic Acid Level 6.6 *H Creatine Kinase 153 Creatine Kinase Index 2.9 Creatinine Kinase MB (Mass) 4.45 H Troponin I 1.370 *H Medications Medications Current Medications Acetaminophen (Tylenol Tab) 650 mg Q4H PRN PO PAIN AND OR ELEVATED TEMP; Start 02/26/17 at 09:30 Docusate Sodium (Colace) 100 mg DAILY PO Last administered on 02/27/17 09:42; Admin Dose 100 MG; Start 02/27/17 at 09:00 Montelukast Sodium (Singulair) 10 mg QHS PO Last administered on 02/26/17 21:14 ; Admin Dose 10 MG; Start 02/26/17 at 21:00 Atorvastatin Calcium (Lipitor) 10 mg QHS PO Last administered on 02/26/17 21:14 ; Admin Dose 10 MG; Start 02/26/17 at 21:00 Ondansetron HCl (Zofran Inj) 4 mg Q4H PRN IV NAUSEA AND/OR VOMITING; Start 02/26 at 09:30 Pantoprazole 40 mg 40 mg BID@06,18 IV Last administered on 02/27/17 05:59; Admin Dose 40 MG; Start 02/26/17 at 18:00 Levetiracetam 100 ml @ 400 mls/hr Q12 IVPB Last administered on 02/27/17 09:42 ; Admin Dose 400 MLS/HR; Start 02/26/17 at 21:00 Valproate Sodium 500 mg/Sodium Chloride 55 ml @ 55 mls/hr Q8 IVPB Last administered on 02/27/17 05:59; Admin Dose 55 MLS/HR; Start 02/26/17 at 14:00 Levofloxacin/ Dextrose 150 ml @ 100 mls/hr Q48H IVPB Last administered on 15:18; Admin Dose 100 MLS/HR; Start 02/26/17 at 14:00 Vancomycin HCl/ Sodium Chloride (Vancocin/NS) 150 ml @ 75 mls/hr Q48H IVPB ; Start 02/28/17 at 12:00 Clonazepam 1 mg 1 mg TID PRN NGT JERKING MOVEMENTS Last administered on 03:16; Admin Dose 1 MG; Start 02/26/17 at 23:30 Dopamine HCl/ Dextrose 250 ml @ 5.273 mls/ hr TITRATE IV Last administered on 02/27/17 08:01; Admin Dose 5.273 MLS/HR; Start 02/27/17 at 08:00 Sodium Chloride 1,000 ml @ 100 mls/hr Q10H IV Last administered on 02/27/17 08 :40; Admin Dose 100 MLS/HR; Start 02/27/17 at 08:30 Phenylephrine HCl 160 mg/Dextrose 500 ml @ 18.75 mls/ hr TITRATE IV Last administered on 02/27/17 09:36; Admin Dose 56.25 MLS/HR; Start 02/27/17 at 08:30 Norepinephrine/ Dextrose (Levophed/D5W) 250 ml @ 0.46 mls/hr TITRATE IV Last administered on 02/27/17 09:37; Admin Dose 14.06 MLS/HR; Start 02/27/17 at 08:30 ROMAN COLLINS Feb 27, 2017 11:40
--- NOTE | 2017-02-27 19:02 | CONS ---
Date/Time of Note Date/Time of Note DATE: 02/27/17 TIME: 19:00 Assessment/Plan Assessment/Plan Chief Complaint/Hosp Course 77-year-old female with a history of coronary artery disease, hypertension, COPD , hypothyroidism, history of DVT, history of IVC filter, pulmonary embolism, was found to have altered level of consciousness at [facility]. Paramedics was called in give 2 mg of Narcan but patient did not wake up so was brought to the emergency room at [facility]. When patient was transferred to the [facility] no pulse was felt. Resuscitation procedure was initiated. Patient was subsequently intubated and taken to the cardiac Virtual Assistant. Coronary angiogram was negative. Her ejection fraction was 60%. Patient was intubated and transferred to the intensive care unit. NG tube was passed and coffee- ground colored material was aspirated so GI consult was called in. Patient is sedated no information could be gathered most of the information gathered by reviewing the chart and discussing with the staff nurse. No melanotic stool. No seizure. Patient was on Xarelto for her pulmonary embolism Problems: Additional Assessment/Plan Additional Assessment/Plan 1. Status post cardiorespiratory arrest 2. Upper GI bleeding most probably related to Xarelto. Hematocrit is 41 3. History of pulmonary embolism 4. COPD 5. Hypertension 6. Chronic diastolic heart failure 7. History of DVT 8. History of IVC filter 9. Chronic pain syndrome 10. Status post back surgery bladder surgery and multiple arthroplasties. 11. Leukocytosis 12. Septic shock patient is on 3 pressor support Plan Continue all supportive care Continue antibiotic and PPI We will monitor H&H and WBC count. We will proceed with EGD once he is more stable. Continue present care Patient is not stable for any endoscopic procedure, discussed with the son Consultation Date/Type/Reason Admit Date/Time Feb 26, 2017 at 11:06 Initial Consult Date 02/26/17 Type of Consultation: Pulmonary/critical care 24 HR Interval Summary Subjective hx not possible: pt non-verbal, pt critical Exam/Review of Systems Vital Signs Vitals Vital Signs Date Time Temp Pulse Resp B/P Pulse Ox O2 Delivery O2 Flow Rate FiO2 02/27/17 18:30 108 43 87/72 69 02/27/17 18:00 Mechanical Ventilator 02/27/17 17:10 100 02/27/17 16:00 98.5 02/26/17 06:20 15 Intake and Output 02/26/17 02/26/17 02/27/17 15:00 23:00 07:00 Intake Total 1015 ml 1884 ml 1396 ml Output Total 35 ml 640 ml 410 ml Balance 980 ml 1244 ml 986 ml Exam Constitutional: non-verbal Respiratory: other (Patient is on vent) Cardiovascular: nl pulses, regular rate and rhythm Gastrointestinal: nl liver, spleen, non-tender, soft Extremities: normal pulses Neurological: unresponsive Results Result Diagram: 02/27/1743902/27/17439 Results 24 hrs Laboratory Tests Test 02/27/17 04:40 02/27/17 06:42 02/27/17 07:30 02/27/17 07:36 White Blood Count 18.3 H Red Blood Count 4.72 Hemoglobin 12.8 Hematocrit 42.0 Mean Corpuscular Volume 89.0 Mean Corpuscular Hemoglobin 27.1 L Mean Corpuscular Hemoglobin Concent 30.5 L Red Cell Distribution Width 18.6 H Platelet Count 265 # Mean Platelet Volume 11.1 H Neutrophils % Segmented Neutrophils % (Manual) 51 Band Neutrophils % (Manual) 32 H Lymphocytes % Lymphocytes % (Manual) 10 L Monocytes % Monocytes % (Manual) 7 Eosinophils % Basophils % Nucleated Red Blood Cells % 0.1 H Neutrophils # Neutrophils # (Manual) 10.4 H Band Neutrophils # 5.8 H Absolute Lymphocytes (Manual) 1.8 Lymphocytes # Monocytes # Absolute Monocytes (Manual) 1.2 H Eosinophils # Basophils # Nucleated Red Blood Cells # Smudge Cells % 5 H Platelet Estimate NORMAL Polychromasia 3+ Poikilocytosis 3+ Anisocytosis 1+ Microcytosis 1+ Macrocytosis 1+ Sodium Level 138 Potassium Level 3.9 Chloride Level 93 #L Carbon Dioxide Level 25 Anion Gap 24 H Blood Urea Nitrogen 41 H Creatinine 2.47 H Glucose Level 287 #H Calcium Level 6.5 L Phosphorus Level 4.4 # Magnesium Level 2.1 Bedside Glucose 147 Blood Gas Specimen Source Blood arterial Arterial Blood Date Drawn 02/27/2017 7:25:47 AM Arterial Blood pH (Temp corrected) 7.453 H Arterial Blood pCO2 (Temp correct) 24.2 L Arterial Blood pO2 (Temp corrected) 98.1 H Arterial Blood HCO3 16.6 L Arterial Blood Base Excess -5.5 L Arterial Blood Oxygen Saturation 98.0 Jimbo Test ACCEPTAB Arterial Blood Gas Puncture Site Left Radial Arterial Blood Carboxyhemoglobin 1.4 Arterial Blood Methemoglobin 0.3 Blood Gas A-a O2 Differential 590.7 H Oxyhemoglobin Percent 96.3 Total Hemoglobin 13.5 Blood Gas Temperature 37.0 Blood Gas Respiration Rate 14.0 Blood Gas Actual Respiration Rate 18 Blood Gas Modality VENT - AC FiO2 100.0 Blood Gas Tidal Volume 550.0 Blood Gas Low PEEP Setting 5.0 Blood Gas Notified Whom TM Blood Gas Notified Time 02/27/2017 7:35:11 AM Lactic Acid Level 6.6 *H Test 02/27/17 07:40 Creatine Kinase 153 Creatine Kinase Index 2.9 Creatinine Kinase MB (Mass) 4.45 H Troponin I 1.370 *H Medications Medications Current Medications Acetaminophen (Tylenol Tab) 650 mg Q4H PRN PO PAIN AND OR ELEVATED TEMP; Start 02/26/17 at 09:30 Docusate Sodium (Colace) 100 mg DAILY PO Last administered on 02/27/17 09:42; Admin Dose 100 MG; Start 02/27/17 at 09:00 Montelukast Sodium (Singulair) 10 mg QHS PO Last administered on 02/26/17 21:14 ; Admin Dose 10 MG; Start 02/26/17 at 21:00 Atorvastatin Calcium (Lipitor) 10 mg QHS PO Last administered on 02/26/17 21:14 ; Admin Dose 10 MG; Start 02/26/17 at 21:00 Ondansetron HCl (Zofran Inj) 4 mg Q4H PRN IV NAUSEA AND/OR VOMITING; Start 02/26 at 09:30 Pantoprazole 40 mg 40 mg BID@06,18 IV Last administered on 02/27/17 18:09; Admin Dose 40 MG; Start 02/26/17 at 18:00 Levetiracetam 100 ml @ 400 mls/hr Q12 IVPB Last administered on 02/27/17 09:42 ; Admin Dose 400 MLS/HR; Start 02/26/17 at 21:00 Valproate Sodium 500 mg/Sodium Chloride 55 ml @ 55 mls/hr Q8 IVPB Last administered on 02/27/17 15:14; Admin Dose 55 MLS/HR; Start 02/26/17 at 14:00 Levofloxacin/ Dextrose 150 ml @ 100 mls/hr Q48H IVPB Last administered on 15:18; Admin Dose 100 MLS/HR; Start 02/26/17 at 14:00 Vancomycin HCl/ Sodium Chloride (Vancocin/NS) 150 ml @ 75 mls/hr Q48H IVPB ; Start 02/28/17 at 12:00 Clonazepam 1 mg 1 mg TID PRN NGT JERKING MOVEMENTS Last administered on 03:16; Admin Dose 1 MG; Start 02/26/17 at 23:30 Dopamine HCl/ Dextrose 250 ml @ 5.273 mls/ hr TITRATE IV Last administered on 02/27/17 08:01; Admin Dose 5.273 MLS/HR; Start 02/27/17 at 08:00 Sodium Chloride 1,000 ml @ 100 mls/hr Q10H IV Last administered on 02/27/17 18 :10; Admin Dose 100 MLS/HR; Start 02/27/17 at 08:30 Phenylephrine HCl 160 mg/Dextrose 500 ml @ 18.75 mls/ hr TITRATE IV Last administered on 02/27/17 18:11; Admin Dose 56.25 MLS/HR; Start 02/27/17 at 08:30 Norepinephrine/ Dextrose (Levophed/D5W) 250 ml @ 0.46 mls/hr TITRATE IV Last administered on 02/27/17 09:37; Admin Dose 14.06 MLS/HR; Start 02/27/17 at 08:30 MERISSA UNDERWOOD MD Feb 27, 2017 19:02
--- NOTE | 2017-02-27 20:49 | CONS ---
Date/Time of Note Date/Time of Note DATE: 02/27/17 TIME: 20:37 Assessment/Plan Assessment/Plan Chief Complaint/Hosp Course ID PROGRESS NOTE CURRENT ABX DAY #2=> Vanco IV + Levaquin 24H INTERVAL SUMMARY * Nonverbal on the Vent -- ETT Secure, no fevers, WBC down 8.3 * 02/26/17: URINE CULTURE Preliminary Organism 1 GRAM NEGATIVE MEKHI COLONY COUNT >100,000 CFU/ml EXAM GEN: VSS, NAD HEENT: Unremarkable Neck: Supple (+)Trach -> Secure to Vent CHEST: Rales/Rhonci CV: Radial pulse RRR ABD: Soft, non-tender, peg : NL male EXT: SCD, moves all extremities, no edema, BUEXT IVDU healed scars, BLEXT "skin popping" well healed scars SKIN: No rash, no diaphoresis ID ASSESSMENT 76 yo F PMHx Psych DX (Schizophrenia) admit 02/26/17 with: 1. Cardiac arrest status post along CPR with likely resulting anoxic brain injury as evidenced by myoclonic jerking. * 02/26/17=> s/p LHC/Coronary angiogram revealing NO CAD 2. Sepsis w/fevers 99.6, tachycardia, leukocytosis, lactic acidosis on admission =>RESOLVING * 02/26/17 BCx (-) 3. GNR UTI 02/26 -> Pending 4. Aspiration PNA=> CXR 02/27 w/ patchy bilateral infiltrates 5. Upper GIB 6. HTN w/hx of HTN heart disease, diastolic dysfunction 7. Likely underlying chronic renal insufficiency. 8. Hx of DVT and PE as well as prior [place] filter placement. ( )MRSA Nares -> Pending INVASIVES: ETT, NGT, FC ABX ALLERGIES: PCN/Sulfa/Erythromycin CURRENT ABX DAY #2=> Vanco IV + Levaquin ID RECOMMENDATIONS 1. Continue current ABX 2. Await micro results -- adjust ABX per objective micro & clinical response . Problems: Consultation Date/Type/Reason Admit Date/Time Feb 26, 2017 at 11:06 Initial Consult Date 02/26/17 Type of Consultation: ID Exam/Review of Systems Vital Signs Vitals Vital Signs Date Time Temp Pulse Resp B/P Pulse Ox O2 Delivery O2 Flow Rate FiO2 02/27/17 18:30 108 43 87/72 69 02/27/17 18:00 Mechanical Ventilator 02/27/17 17:10 100 02/27/17 16:00 98.5 02/26/17 06:20 15 Intake and Output 02/26/17 02/26/17 02/27/17 15:00 23:00 07:00 Intake Total 1015 ml 1884 ml 1396 ml Output Total 35 ml 640 ml 410 ml Balance 980 ml 1244 ml 986 ml Results Result Diagram: 02/27/17 0440 02/27/17 0440 Results 24 hrs Laboratory Tests Test 02/27/17 04:40 02/27/17 06:42 02/27/17 07:30 02/27/17 07:36 White Blood Count 18.3 H Red Blood Count 4.72 Hemoglobin 12.8 Hematocrit 42.0 Mean Corpuscular Volume 89.0 Mean Corpuscular Hemoglobin 27.1 L Mean Corpuscular Hemoglobin Concent 30.5 L Red Cell Distribution Width 18.6 H Platelet Count 265 # Mean Platelet Volume 11.1 H Neutrophils % Segmented Neutrophils % (Manual) 51 Band Neutrophils % (Manual) 32 H Lymphocytes % Lymphocytes % (Manual) 10 L Monocytes % Monocytes % (Manual) 7 Eosinophils % Basophils % Nucleated Red Blood Cells % 0.1 H Neutrophils # Neutrophils # (Manual) 10.4 H Band Neutrophils # 5.8 H Absolute Lymphocytes (Manual) 1.8 Lymphocytes # Monocytes # Absolute Monocytes (Manual) 1.2 H Eosinophils # Basophils # Nucleated Red Blood Cells # Smudge Cells % 5 H Platelet Estimate NORMAL Polychromasia 3+ Poikilocytosis 3+ Anisocytosis 1+ Microcytosis 1+ Macrocytosis 1+ Sodium Level 138 Potassium Level 3.9 Chloride Level 93 #L Carbon Dioxide Level 25 Anion Gap 24 H Blood Urea Nitrogen 41 H Creatinine 2.47 H Glucose Level 287 #H Calcium Level 6.5 L Phosphorus Level 4.4 # Magnesium Level 2.1 Bedside Glucose 147 Blood Gas Specimen Source Blood arterial Arterial Blood Date Drawn 02/27/2017 7:25:47 AM Arterial Blood pH (Temp corrected) 7.453 H Arterial Blood pCO2 (Temp correct) 24.2 L Arterial Blood pO2 (Temp corrected) 98.1 H Arterial Blood HCO3 16.6 L Arterial Blood Base Excess -5.5 L Arterial Blood Oxygen Saturation 98.0 Jimbo Test ACCEPTAB Arterial Blood Gas Puncture Site Left Radial Arterial Blood Carboxyhemoglobin 1.4 Arterial Blood Methemoglobin 0.3 Blood Gas A-a O2 Differential 590.7 H Oxyhemoglobin Percent 96.3 Total Hemoglobin 13.5 Blood Gas Temperature 37.0 Blood Gas Respiration Rate 14.0 Blood Gas Actual Respiration Rate 18 Blood Gas Modality VENT - AC FiO2 100.0 Blood Gas Tidal Volume 550.0 Blood Gas Low PEEP Setting 5.0 Blood Gas Notified Whom TM Blood Gas Notified Time 02/27/2017 7:35:11 AM Lactic Acid Level 6.6 *H Test 02/27/17 07:40 Creatine Kinase 153 Creatine Kinase Index 2.9 Creatinine Kinase MB (Mass) 4.45 H Troponin I 1.370 *H Medications Medications Current Medications Acetaminophen (Tylenol Tab) 650 mg Q4H PRN PO PAIN AND OR ELEVATED TEMP; Start 02/26/17 at 09:30 Docusate Sodium (Colace) 100 mg DAILY PO Last administered on 02/27/17 09:42; Admin Dose 100 MG; Start 02/27/17 at 09:00 Montelukast Sodium (Singulair) 10 mg QHS PO Last administered on 02/26/17 21:14 ; Admin Dose 10 MG; Start 02/26/17 at 21:00 Atorvastatin Calcium (Lipitor) 10 mg QHS PO Last administered on 02/26/17 21:14 ; Admin Dose 10 MG; Start 02/26/17 at 21:00 Ondansetron HCl (Zofran Inj) 4 mg Q4H PRN IV NAUSEA AND/OR VOMITING; Start 02/26 at 09:30 Pantoprazole 40 mg 40 mg BID@06,18 IV Last administered on 02/27/17 18:09; Admin Dose 40 MG; Start 02/26/17 at 18:00 Levetiracetam 100 ml @ 400 mls/hr Q12 IVPB Last administered on 02/27/17 09:42 ; Admin Dose 400 MLS/HR; Start 02/26/17 at 21:00 Valproate Sodium 500 mg/Sodium Chloride 55 ml @ 55 mls/hr Q8 IVPB Last administered on 02/27/17 15:14; Admin Dose 55 MLS/HR; Start 02/26/17 at 14:00 Levofloxacin/ Dextrose 150 ml @ 100 mls/hr Q48H IVPB Last administered on 15:18; Admin Dose 100 MLS/HR; Start 02/26/17 at 14:00 Vancomycin HCl/ Sodium Chloride (Vancocin/NS) 150 ml @ 75 mls/hr Q48H IVPB ; Start 02/28/17 at 12:00 Clonazepam 1 mg 1 mg TID PRN NGT JERKING MOVEMENTS Last administered on 03:16; Admin Dose 1 MG; Start 02/26/17 at 23:30 Dopamine HCl/ Dextrose 250 ml @ 5.273 mls/ hr TITRATE IV Last administered on 02/27/17 08:01; Admin Dose 5.273 MLS/HR; Start 02/27/17 at 08:00 Sodium Chloride 1,000 ml @ 100 mls/hr Q10H IV Last administered on 02/27/17 18 :10; Admin Dose 100 MLS/HR; Start 02/27/17 at 08:30 Phenylephrine HCl 160 mg/Dextrose 500 ml @ 18.75 mls/ hr TITRATE IV Last administered on 02/27/17 18:11; Admin Dose 56.25 MLS/HR; Start 02/27/17 at 08:30 Norepinephrine/ Dextrose (Levophed/D5W) 250 ml @ 0.46 mls/hr TITRATE IV Last administered on 02/27/17 09:37; Admin Dose 14.06 MLS/HR; Start 02/27/17 at 08:30 FLOYD SCHULTE NP Feb 27, 2017 20:47
[2017-02-27] MEDS: ATORVASTATIN 10 MG TAB PO SCH (21:25)
[2017-02-27] MEDS: MONTELUKAST 10 MG TAB PO SCH (21:25)
[2017-02-28] VITALS (70 sets, daily range): BP systolic 60–150; BP diastolic 26–86; PULSE 0–111; RESP 14–49
[2017-02-28] MEDS: PHENYLephrine 160 MG in DEXTROSE 5% 484 ML IV SCH ×2 (03:02→12:09)
[2017-02-28] MEDS: NORepinephrine 32 MG in DEXTROSE 5% 218 ML IV SCH (03:02)
[2017-02-28] MEDS ORDERED: SOD CHLORIDE 0.9% 500 ML IV ONE (03:30)
[2017-02-28 05:51] LABS: ABNORMAL IP MESSAGE 1; HEMATOCRIT 35.6 % (37.0-47.0); HEMOGLOBIN 10.3 g/dl (12.0-16.0); MEAN CORPUSCULAR HEMOGLOBIN 27.6 pg (29.0-33.0); MEAN CORPUSCULAR HGB CONC 28.9 g/dl (32.0-37.0); MEAN CORPUSCULAR VOLUME 95.4 fl (82.0-101.0); MEAN PLATELET VOLUME 11.3 fl (7.4-10.4); NUCLEATED RED BLOOD CELLS% 0.4 /100WBC (0.0-0.0); PLATELET COUNT 138 10^3/UL (140-415); RED BLOOD COUNT 3.73 10^6/ul (4.20-5.40); RED CELL DISTRIBUTION WIDTH 18.2 % (11.5-14.5); WHITE BLOOD COUNT 19.1 10^3/ul (4.8-10.8)
[2017-02-28] MEDS: VALPROATE INJ 500 MG in SOD CHLORIDE 0.9% 50 ML IVPB SCH ×2 (05:54→14:00)
[2017-02-28] MEDS: PANTOPRAZOLE 40 MG INJ IV SCH (05:54)
[2017-02-28] MEDS: DOPamine-D5W 1.6 MG/ML 250 ML IV SCH ×3 (05:55→15:31)
[2017-02-28] MEDS ORDERED: SOD CHLORIDE 0.9% 1,000 ML IV ONE (06:00)
[2017-02-28 06:09] LABS: POSITIVE DIFF @See below
[2017-02-28] MEDS: SOD CHLORIDE 0.9% 1,000 ML IV SCH ×2 (06:58→14:30)
[2017-02-28 07:39] LABS: ANISOCYTOSIS 3+ (0-0); BURR CELLS 1+ (0-0); MICROCYTOSIS 2+ (0-0); MONOCYTES % (M) 7 % (0-11); PLATELET ESTIMATE DECREASED; POIKILOCYTOSIS 3+ (0-0); POLYCHROMASIA 1+ (0-0)
[2017-02-28] MEDS ORDERED: GENTAMICIN IV PER PHARMACY XX SCH (08:00)
[2017-02-28 08:20] LABS: CREATININE 3.67 mg/dl (0.44-1.00); MAGNESIUM 2.4 mg/dl (1.7-2.5); PHOSPHORUS 12.2 mg/dl (2.5-4.9)
[2017-02-28 08:26] LABS: POTASSIUM 6.3 mmol/L (3.5-5.1)
[2017-02-28 08:27] LABS: CALCIUM 5.4 mg/dl (8.4-10.2)
[2017-02-28] MEDS: DOCUSATE SODIUM 100 MG CAP PO SCH (08:55)
[2017-02-28] MEDS ORDERED: VASOPRESSIN 60 UNIT in DEXTROSE 5% 57 ML IV SCH (09:00)
--- NOTE | 2017-02-28 09:05 | PN ---
DATE: 02/28/2017 SUBJECTIVE DATA: The patient remains critically ill on 4 pressors. The patient's pupils are fixed and dilated. The patient was seen by Neurology. An EEG was performed. Results are pending. Please note, I spoke with the patient's DPOA, [place], informing him of the patient's condition. I expressed to him the very poor probability of survival given the significant anoxic brain injury. He understood and per patient's advance directives has changed his code status to DNR. No other events noted. OBJECTIVE DATA: VITAL SIGNS: Blood pressure is 77/39, respirations 19, pulse 92, temperature 98.6. HEENT: Head is normocephalic. Pupils are fixed and dilated with minimal response. HEART: Regular rate. LUNGS: Diminished breath sounds at base. ABDOMEN: Soft, nontender to palpation. No rebound or guarding. EXTREMITIES: Negative for clubbing, cyanosis, no edema. DERMATOLOGIC: Clean. No rashes. MUSCULOSKELETAL: No joint effusion. NEUROLOGIC: The patient is obtunded. LABORATORY AND DIAGNOSTIC DATA: Laboratory data for 02/28 is pending. White count 19.1, hemoglobin 10.3, hematocrit 25.6, and platelet count is 138,000. Imaging studies reviewed. ASSESSMENT AND PLAN: 1. Status post cardiac arrest. Status post PA. Underlying etiology is unclear. Possibly arrhythmias versus pulmonary embolism versus other. Other possibilities include sepsis. At this point, the patient is status post cardiac cath. Will follow up Cardiology recommendations. 2. Shock. Presume septic, possible neurogenic, underlying source unclear. The patient is on broad-spectrum antibiotics. We will continue current treatment plan if possible pneumonia is a consideration. The patient is on multiple pressors. Will continue to follow up with Infectious Disease for recommendations. 3. Acute kidney injury. Etiology secondary to acute tubular necrosis. The patient is initiated on hemodialysis. The patient has completed 1 course of dialysis. Appears currently hemodynamically unstable to do further dialysis. Will continue to monitor closely. 4. Acute encephalopathy, etiology secondary to anoxic injury. The patient's neurologic exam shows fixed dilated pupils. The patient's CT scan was reviewed and was negative. The patient had EEG pending, final read pending. Appreciate Neurology's evaluation. 5. Myoclonic jerks secondary likely to anoxic injury. Continue Keppra and Klonopin. 6. Acute GI bleed. The patient continues to have hematemesis H and H levels. Continue to monitor. Follow up with GI. 7. Ventilatory-dependent respiratory failure. Vent settings reviewed. ABGs reviewed. Continue to monitor. 8. History of diastolic failure. Continue to monitor. 9. History of deep vein thrombosis, pulmonary embolus, status post inferior vena cava (IVC) filter. The patient's anticoagulation is on hold in the setting of upper GI bleed. 10. Chronic obstructive pulmonary disease. 11. Hypothyroidism. Continue Synthroid. 12. A status post left shoulder arthroplasty. 13. Hypokalemic. To monitor. 14. Lactic acidosis. Etiology secondary shock. Will continue to monitor. 15. Elevated troponin, etiology likely secondary non-ST elevation myocardial infarction. Continue current medical management. Please note, I spent over 35 minute of critical care time with this patient. Dictated By: Edwin Pearce DO /aparna/monty /Document#: [id number]
[2017-02-28] MEDS: LEVETIRACETAM 500 MG (PMX) 100 ML IVPB SCH (09:38)
[2017-02-28] MEDS: LEVOTHYROXINE 100 MCG TAB PO SCH (09:38)
[2017-02-28] MEDS ORDERED: GENTAMICIN 120 MG/NS (PMX) 100 ML IVPB ONE (10:00)
--- NOTE | 2017-02-28 11:39 | CONS ---
Date/Time of Note Date/Time of Note DATE: 02/28/17 TIME: 11:36 Assessment/Plan Assessment/Plan Additional Assessment/Plan Ventilator setting; AC of 14, tidal volume 550, PEEP of 5, 100% FiO2. Patient currently on vasopressin 0.04 U/min, Levophed 30 mics per minute, phenylephrine drip at 300 mics per minute. Assessment and recommendations; next 1. Patient admitted with cardiac arrest status post along CPR resulting in severe anoxic brain injury. 2. Profound hypoxemia and shock. 3. Prior history of pulmonary embolism, DVT and placement of [place] filter. 4. Renal insufficiency. 5. Hyperkalemia. 6. Anemia. 7. End-stage renal disease, on hemodialysis. Patient's nephew who has the POA has signed a DNR form. And he is contemplating terminal extubation possibly some time today. The family does not want any further hemodialysis. Prognosis is extremely poor. 35 minutes of critical care time was spent evaluating the patient. Consultation Date/Type/Reason Admit Date/Time Feb 26, 2017 at 11:06 Initial Consult Date 02/26/17 Type of Consultation: Pulmonary/critical care 24 HR Interval Summary Free Text/Dictation Patient condition remains critical. Remains completely unresponsive. Still requiring high-dose pressor support for severe shock. General exam; elderly woman, unresponsive. Currently in no distress. Orally intubated. Exam/Review of Systems Vital Signs Vitals Vital Signs Date Time Temp Pulse Resp B/P Pulse Ox O2 Delivery O2 Flow Rate FiO2 02/28/17 11:15 91 22 111/81 02/28/17 11:00 Mechanical Ventilator 02/28/17 09:30 47 02/28/17 08:00 97.0 02/28/17 08:00 100 02/26/17 06:20 15 Intake and Output 02/27/17 02/27/17 02/28/17 15:00 23:00 07:00 Intake Total 84.2 ml 2902.100 ml 749.062 ml Output Total 30 ml 35 ml 0 ml Balance 54.2 ml 2867.100 ml 749.062 ml Exam HEENT exam; supple neck, no JVD. No lymphadenopathy. Midline trachea. No thyromegaly. Orally intubated. Patient is edentulous. Pupils are small bilaterally. Chest exam; diminished breath sounds bilaterally. S1-S2 audible, no murmurs. Regular rhythm. Exam; soft, no organomegaly. Bowel sounds are absent. Extremity exam; no peripheral edema. Multiple ecchymosis present in all 4 extremities. FOREPART ROUNDER exam; patient remains unresponsive. Results Result Diagram: 02/28/17 0500 02/28/17 0740 Results 24 hrs Laboratory Tests Test 02/28/17 05:00 02/28/17 07:40 White Blood Count 19.1 H Red Blood Count 3.73 #L Hemoglobin 10.3 L Hematocrit 35.6 L Mean Corpuscular Volume 95.4 Mean Corpuscular Hemoglobin 27.6 L Mean Corpuscular Hemoglobin Concent 28.9 L Red Cell Distribution Width 18.2 H Platelet Count 138 #L Mean Platelet Volume 11.3 H Neutrophils % Segmented Neutrophils % (Manual) 71 Band Neutrophils % (Manual) 16 H Lymphocytes % Lymphocytes % (Manual) 6 L Monocytes % Monocytes % (Manual) 7 Eosinophils % Basophils % Nucleated Red Blood Cells % 0.4 H Neutrophils # Neutrophils # (Manual) 14.1 H Band Neutrophils # 3.0 H Absolute Lymphocytes (Manual) 1.1 Lymphocytes # Monocytes # Absolute Monocytes (Manual) 1.3 H Eosinophils # Basophils # Nucleated Red Blood Cells # Smudge Cells % 3 H Platelet Estimate DECREASED Polychromasia 1+ Poikilocytosis 3+ Anisocytosis 3+ Microcytosis 2+ Macrocytosis 1+ Sodium Level 130 L Potassium Level 6.3 #*H Chloride Level 94 L Carbon Dioxide Level 11 #L Anion Gap 31 #H Blood Urea Nitrogen 46 H Creatinine 3.67 #H Glucose Level 78 # Calcium Level 5.4 *L Phosphorus Level 12.2 #H Magnesium Level 2.4 Medications Medications Current Medications Acetaminophen (Tylenol Tab) 650 mg Q4H PRN PO PAIN AND OR ELEVATED TEMP; Start 02/26/17 at 09:30 Docusate Sodium (Colace) 100 mg DAILY PO Last administered on 02/27/17 09:42; Admin Dose 100 MG; Start 02/27/17 at 09:00 Montelukast Sodium (Singulair) 10 mg QHS PO Last administered on 02/27/17 21:25 ; Admin Dose 10 MG; Start 02/26/17 at 21:00 Atorvastatin Calcium (Lipitor) 10 mg QHS PO Last administered on 02/27/17 21:25 ; Admin Dose 10 MG; Start 02/26/17 at 21:00 Ondansetron HCl (Zofran Inj) 4 mg Q4H PRN IV NAUSEA AND/OR VOMITING; Start 02/26 at 09:30 Pantoprazole 40 mg 40 mg BID@06,18 IV Last administered on 02/28/17 05:54; Admin Dose 40 MG; Start 02/26/17 at 18:00 Levetiracetam 100 ml @ 400 mls/hr Q12 IVPB Last administered on 02/28/17 09:38 ; Admin Dose 400 MLS/HR; Start 02/26/17 at 21:00 Valproate Sodium 500 mg/Sodium Chloride 55 ml @ 55 mls/hr Q8 IVPB Last administered on 02/28/17 05:54; Admin Dose 55 MLS/HR; Start 02/26/17 at 14:00 Levofloxacin/ Dextrose (Levaquin 750 Mg/ D5W 150 ml (Pmx)) 150 ml @ 100 mls/hr Q48H IVPB Last administered on 02/26/17 15:18; Admin Dose 100 MLS/HR; Start 02/26/17 at 14:00 Clonazepam 1 mg 1 mg TID PRN NGT JERKING MOVEMENTS Last administered on 03:16; Admin Dose 1 MG; Start 02/26/17 at 23:30 Dopamine HCl/ Dextrose 250 ml @ 5.273 mls/ hr TITRATE IV Last administered on 02/28/17 10:51; Admin Dose 52.725 MLS/HR; Start 02/27/17 at 08:00 Sodium Chloride 1,000 ml @ 100 mls/hr Q10H IV Last administered on 02/28/17 06 :58; Admin Dose 100 MLS/HR; Start 02/27/17 at 08:30 Phenylephrine HCl 160 mg/Dextrose 500 ml @ 18.75 mls/ hr TITRATE IV Last administered on 02/28/17 03:02; Admin Dose 56.25 MLS/HR; Start 02/27/17 at 08:30 Norepinephrine 32 mg/Dextrose 250 ml @ 0.46 mls/hr TITRATE IV Last administered on 02/28/17 03:02; Admin Dose 14.06 MLS/HR; Start 02/27/17 at 08:30 Vasopressin/ Dextrose (Vasostrict/D5W) 60 ml @ 0 mls/hr TITRATE IV Last administered on 02/28/17t 09:42; Admin Dose 2.4 MLS/HR; Start 02/28/17 at 09:00 Gentamicin Sulfate (Gentamicin Iv Per Pharmacy) PER PHARMACY DOSING NOTE XX ; Start 02/28/17 at 08:00 ROMAN COLLINS Feb 28, 2017 11:39
[2017-02-28] MEDS ORDERED: VANCOMYCIN 750 MG in SOD CHLORIDE 0.9% 150 ML IVPB SCH (12:00)
[2017-02-28] MEDS ORDERED: CEFEPIME 1GM/50 ML (PMX) 50 ML IVPB ONE (13:00)
--- NOTE | 2017-02-28 13:11 | CONS ---
Date/Time of Note Date/Time of Note DATE: 02/28/17 TIME: 12:27 Assessment/Plan Assessment/Plan Chief Complaint/Hosp Course ID PROGRESS NOTE CURRENT ABX => Vanco IV #3 + Start Cefepime x #1 + Levaquin#2 -> Dc 02/28 (Proteus Resistant) 24H INTERVAL SUMMARY * Obtunded post [place], orally intubated, non-communicative, no fevers, WBC rising post intubation * MICRO: Sputum -> Pending, BCx(-), Urine (+)Proteus = RESISTANT to Levaquin * 02/26/17: uRINE CULTURE Final Organism 1 PROTEUS MIRABILIS COLONY COUNT >100,000 CFU/ml P. MIRAB M.I.C. RX --------- --- AMIKACIN <=2 S AMPICILLIN >=32 R CEFEPIME 4 S CEFOTAXIME R CIPROFLOXACIN >=4 R GENTAMICIN >=16 R IMIPENEM 8 R LEVOFLOXACIN >=8 R NITROFURANTOIN 128 R TOBRAMYCIN 8 I TRIMETHOPRIM/SULFAMETHOXAZOLE >=320 R PIPERACILLIN/TAZOBACTAM 32 I EXAM GEN: VSS, NAD HEENT: Unremarkable Neck: Supple (+)Trach -> Secure to Vent CHEST: Rales/Rhonci CV: Radial pulse RRR ABD: Soft, non-tender, peg : NL male EXT: SCD, moves all extremities, no edema, BUEXT IVDU healed scars, BLEXT "skin popping" well healed scars SKIN: No rash, no diaphoresis ID ASSESSMENT 76 yo F PMHx Psych DX (Schizophrenia) admit 02/26/17 with: 1. Cardiac arrest status post along CPR with likely resulting anoxic brain injury as evidenced by myoclonic jerking. * 02/26/17=> s/p LHC/Coronary angiogram revealing NO CAD 2. Sepsis w/fevers 99.6, tachycardia, leukocytosis, lactic acidosis on admission =>RESOLVING * 02/26/17 BCx (-) 3. GNR UTI 02/26 -> Pending 4. Aspiration PNA=> CXR 02/27 w/ patchy bilateral infiltrates 5. Upper GIB 6. HTN w/hx of HTN heart disease, diastolic dysfunction 7. Likely underlying chronic renal insufficiency. 8. Hx of DVT and PE as well as prior [place] filter placement. ( )MRSA Nares -> Pending INVASIVES: ETT, NGT, FC ABX ALLERGIES: PCN/Sulfa/Erythromycin CURRENT ABX => Vanco IV #3 + Start Start Cefepime x #1 + GENT x1 + Levaquin#2 -> Dc 02/28 (Proteus Resistant) ID RECOMMENDATIONS 1. Continue Vanco IV, change Levaquin to Start Cefepime x #1 ==test dose safe she is intubated -- if no rash will continue Cefepime . Problems: Consultation Date/Type/Reason Admit Date/Time Feb 26, 2017 at 11:06 Initial Consult Date 02/26/17 Type of Consultation: ID Exam/Review of Systems Vital Signs Vitals Vital Signs Date Time Temp Pulse Resp B/P Pulse Ox O2 Delivery O2 Flow Rate FiO2 02/28/17 11:15 91 22 111/81 02/28/17 11:10 100 02/28/17 11:00 Mechanical Ventilator 02/28/17 09:30 47 02/28/17 08:00 97.0 02/26/17 06:20 15 Intake and Output 02/27/17 02/27/17 02/28/17 15:00 23:00 07:00 Intake Total 84.2 ml 2902.100 ml 749.062 ml Output Total 30 ml 35 ml 0 ml Balance 54.2 ml 2867.100 ml 749.062 ml Results Result Diagram: 02/28/17 0500 02/28/17 0740 Results 24 hrs Laboratory Tests Test 02/28/17 05:00 02/28/17 07:40 White Blood Count 19.1 H Red Blood Count 3.73 #L Hemoglobin 10.3 L Hematocrit 35.6 L Mean Corpuscular Volume 95.4 Mean Corpuscular Hemoglobin 27.6 L Mean Corpuscular Hemoglobin Concent 28.9 L Red Cell Distribution Width 18.2 H Platelet Count 138 #L Mean Platelet Volume 11.3 H Neutrophils % Segmented Neutrophils % (Manual) 71 Band Neutrophils % (Manual) 16 H Lymphocytes % Lymphocytes % (Manual) 6 L Monocytes % Monocytes % (Manual) 7 Eosinophils % Basophils % Nucleated Red Blood Cells % 0.4 H Neutrophils # Neutrophils # (Manual) 14.1 H Band Neutrophils # 3.0 H Absolute Lymphocytes (Manual) 1.1 Lymphocytes # Monocytes # Absolute Monocytes (Manual) 1.3 H Eosinophils # Basophils # Nucleated Red Blood Cells # Smudge Cells % 3 H Platelet Estimate DECREASED Polychromasia 1+ Poikilocytosis 3+ Anisocytosis 3+ Microcytosis 2+ Macrocytosis 1+ Sodium Level 130 L Potassium Level 6.3 #*H Chloride Level 94 L Carbon Dioxide Level 11 #L Anion Gap 31 #H Blood Urea Nitrogen 46 H Creatinine 3.67 #H Glucose Level 78 # Calcium Level 5.4 *L Phosphorus Level 12.2 #H Magnesium Level 2.4 Random Vancomycin Level 10.1 Medications Medications Current Medications Acetaminophen (Tylenol Tab) 650 mg Q4H PRN PO PAIN AND OR ELEVATED TEMP; Start 02/26/17 at 09:30 Docusate Sodium (Colace) 100 mg DAILY PO Last administered on 02/27/17 09:42; Admin Dose 100 MG; Start 02/27/17 at 09:00 Montelukast Sodium (Singulair) 10 mg QHS PO Last administered on 02/27/17 21:25 ; Admin Dose 10 MG; Start 02/26/17 at 21:00 Atorvastatin Calcium (Lipitor) 10 mg QHS PO Last administered on 02/27/17 21:25 ; Admin Dose 10 MG; Start 02/26/17 at 21:00 Ondansetron HCl (Zofran Inj) 4 mg Q4H PRN IV NAUSEA AND/OR VOMITING; Start 02/26 at 09:30 Pantoprazole 40 mg 40 mg BID@06,18 IV Last administered on 02/28/17 05:54; Admin Dose 40 MG; Start 02/26/17 at 18:00 Levetiracetam 100 ml @ 400 mls/hr Q12 IVPB Last administered on 02/28/17 09:38 ; Admin Dose 400 MLS/HR; Start 02/26/17 at 21:00 Valproate Sodium 500 mg/Sodium Chloride 55 ml @ 55 mls/hr Q8 IVPB Last administered on 02/28/17 05:54; Admin Dose 55 MLS/HR; Start 02/26/17 at 14:00 Levofloxacin/ Dextrose (Levaquin 750 Mg/ D5W 150 ml (Pmx)) 150 ml @ 100 mls/hr Q48H IVPB Last administered on 02/26/17 15:18; Admin Dose 100 MLS/HR; Start 02/26/17 at 14:00 Clonazepam 1 mg 1 mg TID PRN NGT JERKING MOVEMENTS Last administered on 03:16; Admin Dose 1 MG; Start 02/26/17 at 23:30 Dopamine HCl/ Dextrose 250 ml @ 5.273 mls/ hr TITRATE IV Last administered on 02/28/17 10:51; Admin Dose 52.725 MLS/HR; Start 02/27/17 at 08:00 Sodium Chloride 1,000 ml @ 100 mls/hr Q10H IV Last administered on 02/28/17 06 :58; Admin Dose 100 MLS/HR; Start 02/27/17 at 08:30 Phenylephrine HCl 160 mg/Dextrose 500 ml @ 18.75 mls/ hr TITRATE IV Last administered on 02/28/17 12:09; Admin Dose 56.25 MLS/HR; Start 02/27/17 at 08:30 Norepinephrine 32 mg/Dextrose 250 ml @ 0.46 mls/hr TITRATE IV Last administered on 02/28/17 03:02; Admin Dose 14.06 MLS/HR; Start 02/27/17 at 08:30 Vasopressin/ Dextrose (Vasostrict/D5W) 60 ml @ 0 mls/hr TITRATE IV Last administered on 02/28/17 09:42; Admin Dose 2.4 MLS/HR; Start 02/28/17 at 09:00 Gentamicin Sulfate (Gentamicin Iv Per Pharmacy) PER PHARMACY DOSING NOTE XX ; Start 02/28/17 at 08:00 FLOYD SCHULTE NP Feb 28, 2017 12:54
[2017-02-28] MEDS ORDERED: VANCOMYCIN 750 MG in SOD CHLORIDE 0.9% 150 ML IVPB ONE (14:00)
--- NOTE | 2017-02-28 14:06 | PN ---
Date/Time of Note Date/Time of Note DATE: 02/28/17 TIME: 14:01 Assessment/Plan VTE Prophylaxis VTE Prophylaxis Intervention: other Lines/Catheters IV C[facility]ter Type (from [facility]): BRENNA Urinary Cath still in place: Yes Reason Cath still needed: other (indicate) Assessment/Plan Chief Complaint/Hosp Course 1. cardiopulm arrest 2. abnormal ECG C/ W STEMI but no significant CAD on macrina angio done by Dr Hall 3. hx PAD 4. Severe encephalopathy and probably anoxic brain injury 5. hypoxemic resp failure: vent dependent. 6. severe sepsis and septic shock 7. renal failure. 8. hx DVT/ PE: ON XARELTO prior to admission 9. hx COPD 10. hx memory impairment 11. possible GI bleed 12. cynosis of toes REC: cont vent support already on 4 pressors and still hypotensvie. abx as per IM F/U with neurology rec. HD as per renal. echo shows preserved LV function. cont ICU care code is DNR NOW. more than 36 min of critical care time was spent in management and treatment of this critically ill pt, excluding any procedures. Problems: Subjective 24 Hr Interval Summary Free Text/Dictation CARDIOLOGY FOLLOW UP NOTE/ Critical care note d/w staff and physicians. rhythm was reviewed. PT remains in NSR. she is still vert hypotensive and max 4 pressors in ICU she remains intubated and nonverbal. OBJECTIVE: GEN: intubated on vent nonresponsive HEENT: NC/AT. pupils are dilated. s/p NG tube in place with coffee ground emesis. Neck: no stridor CV: RRR systolic murmur. pulm: no wheezes anteriorly but + rhonchi. GI: soft NT no rebound extremity: + LE edema. +cyanotic toes. neuro: no response to verbal or painful stimuli. psych: unable to assess ECHO personally reviewed: 1. Lower limits of normal systolic function. Normal left ventricular cavity size. Mild concentric left ventricular hypertrophy. Ejection fraction is visually estimated at 45 -55 %. Abnormal Diastolic Function. 2. Normal appearance and function of the mitral valve with trace physiologic regurgitation. 3. No significant aortic stenosis or insufficiency. Aortic cusps appear mildly calcified. 4. Tricuspid valve not well visualized. Estimated peak PA systolic pressure 30 mmHg. There is mild tricuspid regurgitation. 5. suboptimal study. Exam/Review of Systems Vital Signs Vitals Vital Signs Date Time Temp Pulse Resp B/P Pulse Ox O2 Delivery O2 Flow Rate FiO2 02/28/17 12:30 93 22 02/28/17 12:00 97.1 60/30 Mechanical Ventilator 02/28/17 11:10 100 02/28/17 09:30 47 02/26/17 06:20 15 Intake and Output 02/27/17 02/27/17 02/28/17 15:00 23:00 07:00 Intake Total 84.2 ml 2902.100 ml 749.062 ml Output Total 30 ml 35 ml 0 ml Balance 54.2 ml 2867.100 ml 749.062 ml Results Result Diagram: 02/28/17 0500 02/28/17 0740 Results 24 hrs Laboratory Tests Test 02/28/17 05:00 02/28/17 07:40 White Blood Count 19.1 H Red Blood Count 3.73 #L Hemoglobin 10.3 L Hematocrit 35.6 L Mean Corpuscular Volume 95.4 Mean Corpuscular Hemoglobin 27.6 L Mean Corpuscular Hemoglobin Concent 28.9 L Red Cell Distribution Width 18.2 H Platelet Count 138 #L Mean Platelet Volume 11.3 H Neutrophils % Segmented Neutrophils % (Manual) 71 Band Neutrophils % (Manual) 16 H Lymphocytes % Lymphocytes % (Manual) 6 L Monocytes % Monocytes % (Manual) 7 Eosinophils % Basophils % Nucleated Red Blood Cells % 0.4 H Neutrophils # Neutrophils # (Manual) 14.1 H Band Neutrophils # 3.0 H Absolute Lymphocytes (Manual) 1.1 Lymphocytes # Monocytes # Absolute Monocytes (Manual) 1.3 H Eosinophils # Basophils # Nucleated Red Blood Cells # Smudge Cells % 3 H Platelet Estimate DECREASED Polychromasia 1+ Poikilocytosis 3+ Anisocytosis 3+ Microcytosis 2+ Macrocytosis 1+ Sodium Level 130 L Potassium Level 6.3 #*H Chloride Level 94 L Carbon Dioxide Level 11 #L Anion Gap 31 #H Blood Urea Nitrogen 46 H Creatinine 3.67 #H Glucose Level 78 # Calcium Level 5.4 *L Phosphorus Level 12.2 #H Magnesium Level 2.4 Random Vancomycin Level 10.1 Medications Medications Current Medications Acetaminophen (Tylenol Tab) 650 mg Q4H PRN PO PAIN AND OR ELEVATED TEMP; Start 02/26/17 at 09:30 Docusate Sodium (Colace) 100 mg DAILY PO Last administered on 02/27/17 09:42; Admin Dose 100 MG; Start 02/27/17 at 09:00 Montelukast Sodium (Singulair) 10 mg QHS PO Last administered on 02/27/17 21:25 ; Admin Dose 10 MG; Start 02/26/17 at 21:00 Atorvastatin Calcium (Lipitor) 10 mg QHS PO Last administered on 02/27/17 21:25 ; Admin Dose 10 MG; Start 02/26/17 at 21:00 Ondansetron HCl (Zofran Inj) 4 mg Q4H PRN IV NAUSEA AND/OR VOMITING; Start 02/26 at 09:30 Pantoprazole 40 mg 40 mg BID@06,18 IV Last administered on 02/28/17 05:54; Admin Dose 40 MG; Start 02/26/17 at 18:00 Levetiracetam 100 ml @ 400 mls/hr Q12 IVPB Last administered on 02/28/17 09:38 ; Admin Dose 400 MLS/HR; Start 02/26/17 at 21:00 Valproate Sodium/ Sodium Chloride (Depacon/NS) 55 ml @ 55 mls/hr Q8 IVPB Last administered on 02/28/17 05:54; Admin Dose 55 MLS/HR; Start 02/26/17 at 14:00 Clonazepam 1 mg 1 mg TID PRN NGT JERKING MOVEMENTS Last administered on 03:16; Admin Dose 1 MG; Start 02/26/17 at 23:30 Dopamine HCl/ Dextrose 250 ml @ 5.273 mls/ hr TITRATE IV Last administered on 02/28/17 10:51; Admin Dose 52.725 MLS/HR; Start 02/27/17 at 08:00 Sodium Chloride 1,000 ml @ 100 mls/hr Q10H IV Last administered on 02/28/17 06 :58; Admin Dose 100 MLS/HR; Start 02/27/17 at 08:30 Phenylephrine HCl 160 mg/Dextrose 500 ml @ 18.75 mls/ hr TITRATE IV Last administered on 02/28/17 12:09; Admin Dose 56.25 MLS/HR; Start 02/27/17 at 08:30 Norepinephrine 32 mg/Dextrose 250 ml @ 0.46 mls/hr TITRATE IV Last administered on 02/28/17 03:02; Admin Dose 14.06 MLS/HR; Start 02/27/17 at 08:30 Vasopressin/ Dextrose (Vasostrict/D5W) 60 ml @ 0 mls/hr TITRATE IV Last administered on 02/28/17 09:42; Admin Dose 2.4 MLS/HR; Start 02/28/17 at 09:00 Gentamicin Sulfate PER PHARMACY DOSING NOTE XX ; Start 02/28/17 at 08:00 Vancomycin HCl/ Sodium Chloride (Vancocin/NS) 150 ml @ 75 mls/hr ONCE ONCE IVPB ; Start 02/28/17 at 14:00; Stop 02/28/17 at 15:59 FARHAN SCHULZ MD Feb 28, 2017 14:06
[2017-02-28 15:04] LABS: MICROALBUMIN 49.2 mg/dL
--- NOTE | 2017-02-28 17:53 | CONS ---
Date/Time of Note Date/Time of Note DATE: 02/28/17 TIME: 17:51 Assessment/Plan Assessment/Plan Chief Complaint/Hosp Course 77-year-old female with a history of coronary artery disease, hypertension, COPD , hypothyroidism, history of DVT, history of IVC filter, pulmonary embolism, was found to have altered level of consciousness at residential. Paramedics was called in give 2 mg of Narcan but patient did not wake up so was brought to the emergency room at [facility]. When [facility] no pulse was felt. Resuscitation procedure was initiated. Patient was subsequently intubated and taken to the cardiac Carbon Furnace Operator. Coronary angiogram was negative. Her ejection fraction was 60%. Patient was intubated and transferred to the intensive care unit. NG tube was passed and coffee- ground colored material was aspirated so GI consult was called in. Patient is sedated no information could be gathered most of the information gathered by reviewing the chart and discussing with the staff nurse. No melanotic stool. No seizure. Patient was on Xarelto for her pulmonary embolism Problems: Additional Assessment/Plan Additional Assessment/Plan 1. Status post cardiorespiratory arrest 2. Upper GI bleeding most probably related to Xarelto. Hematocrit is 41 3. History of pulmonary embolism 4. COPD 5. Hypertension 6. Chronic diastolic heart failure 7. History of DVT 8. History of IVC filter 9. Chronic pain syndrome 10. Status post back surgery bladder surgery and multiple arthroplasties. 11. Leukocytosis 12. Septic shock patient is on 4 pressor support 13. Renal failure Plan Continue all supportive care Continue antibiotic and PPI We will monitor H&H and WBC count. Continue antibiotic and all pressor support medication Continue present care Patient is not stable for any endoscopic procedure, discussed with the son Consultation Date/Type/Reason Admit Date/Time Feb 26, 2017 at 11:06 Initial Consult Date 02/26/17 Type of Consultation: ID 24 HR Interval Summary Subjective hx not possible: pt non-verbal, pt critical Exam/Review of Systems Vital Signs Vitals Vital Signs Date Time Temp Pulse Resp B/P Pulse Ox O2 Delivery O2 Flow Rate FiO2 02/28/17 16:00 0 14 02/28/17 15:15 95/58 02/28/17 15:10 100 02/28/17 12:00 97.1 Mechanical Ventilator 02/28/17 09:30 47 02/26/17 06:20 15 Intake and Output 8/3/17 8/3/17 8/4/17 15:00 23:00 07:00 Intake Total 84.2 ml 2902.100 ml 872.092 ml Output Total 30 ml 35 ml 0 ml Balance 54.2 ml 2867.100 ml 872.092 ml Exam Constitutional: non-verbal Neck: non-tender, supple Respiratory: other (Patient is on vent) Cardiovascular: nl pulses, regular rate and rhythm Gastrointestinal: nl liver, spleen, non-tender, soft Neurological: unresponsive Results Result Diagram: 02/28/17 0500 02/28/17 0740 Results 24 hrs Laboratory Tests Test 02/28/17 05:00 02/28/17 07:40 White Blood Count 19.1 H Red Blood Count 3.73 #L Hemoglobin 10.3 L Hematocrit 35.6 L Mean Corpuscular Volume 95.4 Mean Corpuscular Hemoglobin 27.6 L Mean Corpuscular Hemoglobin Concent 28.9 L Red Cell Distribution Width 18.2 H Platelet Count 138 #L Mean Platelet Volume 11.3 H Neutrophils % Segmented Neutrophils % (Manual) 71 Band Neutrophils % (Manual) 16 H Lymphocytes % Lymphocytes % (Manual) 6 L Monocytes % Monocytes % (Manual) 7 Eosinophils % Basophils % Nucleated Red Blood Cells % 0.4 H Neutrophils # Neutrophils # (Manual) 14.1 H Band Neutrophils # 3.0 H Absolute Lymphocytes (Manual) 1.1 Lymphocytes # Monocytes # Absolute Monocytes (Manual) 1.3 H Eosinophils # Basophils # Nucleated Red Blood Cells # Smudge Cells % 3 H Platelet Estimate DECREASED Polychromasia 1+ Poikilocytosis 3+ Anisocytosis 3+ Microcytosis 2+ Macrocytosis 1+ Sodium Level 130 L Potassium Level 6.3 #*H Chloride Level 94 L Carbon Dioxide Level 11 #L Anion Gap 31 #H Blood Urea Nitrogen 46 H Creatinine 3.67 #H Glucose Level 78 # Calcium Level 5.4 *L Phosphorus Level 12.2 #H Magnesium Level 2.4 Random Vancomycin Level 10.1 Medications Medications Current Medications Acetaminophen (Tylenol Tab) 650 mg Q4H PRN PO PAIN AND OR ELEVATED TEMP; Start 02/26/17 at 09:30 Docusate Sodium (Colace) 100 mg DAILY PO Last administered on 02/27/17t 09:42; Admin Dose 100 MG; Start 02/27/17 at 09:00 Montelukast Sodium (Singulair) 10 mg QHS PO Last administered on 02/27/17 21:25 ; Admin Dose 10 MG; Start 02/26/17 at 21:00 Atorvastatin Calcium (Lipitor) 10 mg QHS PO Last administered on 02/27/17 21:25 ; Admin Dose 10 MG; Start 02/26/17 at 21:00 Ondansetron HCl (Zofran Inj) 4 mg Q4H PRN IV NAUSEA AND/OR VOMITING; Start 02/26 at 09:30 Pantoprazole 40 mg 40 mg BID@06,18 IV Last administered on 02/28/17 05:54; Admin Dose 40 MG; Start 02/26/17 at 18:00 Levetiracetam 100 ml @ 400 mls/hr Q12 IVPB Last administered on 02/28/17 09:38 ; Admin Dose 400 MLS/HR; Start 02/26/17 at 21:00 Valproate Sodium/ Sodium Chloride (Depacon/NS) 55 ml @ 55 mls/hr Q8 IVPB Last administered on 02/28/17 14:00; Admin Dose 55 MLS/HR; Start 02/26/17 at 14:00 Clonazepam 1 mg 1 mg TID PRN NGT JERKING MOVEMENTS Last administered on 03:16; Admin Dose 1 MG; Start 02/26/17 at 23:30 Dopamine HCl/ Dextrose 250 ml @ 5.273 mls/ hr TITRATE IV Last administered on 02/28/17 15:31; Admin Dose 52.725 MLS/HR; Start 02/27/17 at 08:00 Sodium Chloride 1,000 ml @ 100 mls/hr Q10H IV Last administered on 02/28/17 14 :30; Admin Dose 100 MLS/HR; Start 02/27/17 at 08:30 Phenylephrine HCl 160 mg/Dextrose 500 ml @ 18.75 mls/ hr TITRATE IV Last administered on 02/28/17 12:09; Admin Dose 56.25 MLS/HR; Start 02/27/17 at 08:30 Norepinephrine 32 mg/Dextrose 250 ml @ 0.46 mls/hr TITRATE IV Last administered on 02/28/17 03:02; Admin Dose 14.06 MLS/HR; Start 02/27/17 at 08:30 Vasopressin/ Dextrose (Vasostrict/D5W) 60 ml @ 0 mls/hr TITRATE IV Last administered on 02/28/17t 09:42; Admin Dose 2.4 MLS/HR; Start 02/28/17 at 09:00 Gentamicin Sulfate (Gentamicin Iv Per Pharmacy) PER PHARMACY DOSING NOTE XX ; Start 02/28/17 at 08:00 MERISSA UNDERWOOD MD Feb 28, 2017 17:53
--- NOTE | 2017-03-03 10:23 | HKNOTE ---
DATE OF SERVICE: 03/03/[address] Coombs: You consulted me tonight to read for you the EEG. The patient is a 77-year-old female. PROCEDURE PERFORMED: EEG. DESCRIPTION OF PROCEDURE: EEG done using 10/20 [employer] System with photic stimulation. Bilateral occipital hemisphere shows delta waves 1 Hz, periodic blebs recorded bilaterally with almost a flat line in between. Photic stimulation done . IMPRESSION: This is an abnormal electroencephalogram showing bilateral blebs with no activity in between with poor prognosis consistent with a history of underlying severe brain injury. EEG may be needed if clinically indicated. Again, thank you, Dr. Coombs for asking me to read the EEG for you. Dictated By: Eugene Gomes MD /[email or web address] /Document#: [id number]
--- NOTE | 2017-04-08 05:43 | DES ---
DATE OF ADMISSION: 02/26/2017 DATE OF DISCHARGE: 02/28/2017 HOSPITAL COURSE: This is a 77-year-old female with a past medical history of chronic diastolic heart failure, history of hypertension, coronary artery disease, dyslipidemia, COPD, hypothyroidism, DVT, history of PE status post IVC filter, history of dementia, cognitive decline, history of chronic pain syndrome, presented to [facility] from her half-way facility after being found altered. The patient in the emergency room apparently underwent code arrest, was subsequently intubated. The patient was then shocked, placed on presser support, and transferred over to the intensive care unit. The patient unfortunately had no clinical improvement and had further clinical decline despite all aggressive care and despite multiple specialists including teleprinter installer, match up worker, infectious disease. The patient continued to become more hypotensive, requiring further pressor support. The patient was also seen by neurology and noted to have severe encephalopathy, likely from anoxic injury. The patient's pupils remained fixed and dilated. The decision was subsequently made by the patient's DPOA for patient to be no code. The patient subsequently . FINAL DIAGNOSES: 1. Status post cardiac arrest. 2. Shock. 3. Acute kidney injury. 4. Acute encephalopathy. 5. Myoclonic jerks. 6. Acute gastrointestinal bleed. 7. Vent trach dependence respiratory failure. 8. Diastolic heart failure. 9. History of deep vein thrombosis. 10. Chronic obstructive pulmonary disease. 11. Hypothyroidism. 12. Hypokalemia. 13. Lactic acidosis. 14. Elevated troponin. Dictated By: Edwin Pearce DO /aparna/nupur /Document#: [id number]
== END 2017-02-28 21:09 | disposition expired | DRG 871 ==
LOC: E/R 06:04 → CCL 07:10 → SDS 07:10 → ICU 08:50 → CCL 11:06 → ICU 11:06
PROVIDERS: ADMIT Internal Medicine; ATTEND Internal Medicine Interventional Cardiology
PROC: 5A12012 Performance of Cardiac Output, Single, Manual (ICD-10-PCS; 2017-02-26)
PROC: 5A1945Z Respiratory Ventilation, 24-96 Consecutive Hours (ICD-10-PCS; 2017-02-26)
PROC: B2111ZZ Fluoroscopy of Multiple Coronary Arteries using Low Osmolar Contrast (ICD-10-PCS; 2017-02-26)
PROC: 0BH17EZ Insertion of Endotracheal Airway into Trachea, Via Natural or Artificial Opening (ICD-10-PCS; 2017-02-26)
PROC: 4A023N7 Measurement of Cardiac Sampling and Pressure, Left Heart, Percutaneous Approach (ICD-10-PCS; principal; 2017-02-26 06:30)
PROC: 06HN33Z Insertion of Infusion Device into Left Femoral Vein, Percutaneous Approach (ICD-10-PCS; 2017-02-28)
DX: A41.9 Sepsis, unspecified organism (principal); I21.19 ST elevation (STEMI) myocardial infarction involving other coronary artery of inferior wall; N17.0 Acute kidney failure with tubular necrosis; I46.9 Cardiac arrest, cause unspecified; G93.1 Anoxic brain damage, not elsewhere classified; R65.21 Severe sepsis with septic shock; J96.00 Acute respiratory failure, unspecified whether with hypoxia or hypercapnia; J96.01 Acute respiratory failure with hypoxia; J69.0 Pneumonitis due to inhalation of food and vomit; K92.2 Gastrointestinal hemorrhage, unspecified; N18.6 End stage renal disease; L03.114 Cellulitis of left upper limb; N39.0 Urinary tract infection, site not specified; I13.0 Hypertensive heart and chronic kidney disease with heart failure and stage 1 through stage 4 chronic kidney disease, or unspecified chronic kidney disease; I50.32 Chronic diastolic (congestive) heart failure; Z99.11 Dependence on respirator [ventilator] status; E87.2 Acidosis; J44.9 Chronic obstructive pulmonary disease, unspecified; B96.89 Other specified bacterial agents as the cause of diseases classified elsewhere; G89.4 Chronic pain syndrome; G25.3 Myoclonus; R94.31 Abnormal electrocardiogram [ECG] [EKG]; R23.0 Cyanosis; D64.9 Anemia, unspecified; E87.5 Hyperkalemia; E03.9 Hypothyroidism, unspecified; F20.9 Schizophrenia, unspecified; Z66 Do not resuscitate; Z96.612 Presence of left artificial shoulder joint; Z87.891 Personal history of nicotine dependence; Z86.718 Personal history of other venous thrombosis and embolism; Z98.890 Other specified postprocedural states; Z95.828 Presence of other vascular implants and grafts
CPT/HCPCS: 31500; 36600; 70450; 71010; 80048; 80053; 80202; 81001; 81003; 82043; 82550; 82553; 82803; 82962; 83605; 83735; 84100; 84145; 84155; 84300; 84484; 85025; 85610; 85730; 87040; 87070; 87081; 87086; 89220; 90935; 92950; 93005; 93306; 93458; 94002; 94003; 94770; 95819; C1752; C1769; C1887; C1894; C9113; J0461; J1265; J1580; J1644; J1953; J1956; J2250; J2370; J3010; J3370; J7030; J7040; J7050; J7060; J7070; Q9967